=== PATIENT | female | born 1930 | race Caucasian/White ===

== ENCOUNTER 2016-07-21 10:15 | Day surgery (SDC) | payer MEDICARE, BC ==
[~2016-07-21 10:15] MED LIST: ALPRAZolam 0.25 MG TAB PO PRN; ALPRAZolam 0.5 MG TAB PO PRN; ASPIRIN 325 MG TAB PO STA; ATORVASTATIN 80 MG TAB PO STA; NITROGLYCERIN SL TABS 0.4 MG TAB SUBLINGUAL PRN; SODIUM CHLORIDE 0.9% 1,000 ML in EMPTY BAG 1 BAG IV ONE
[2016-07-21 10:42] LABS: Glucose,Whole Blood 90 mg/dL (75-99)
[2016-07-21 11:08] LABS: Basophils # (A) 0.1 k/uL (0-0.2); Basophils % (A) 1 %; CH 31.5; Eosinophils # (A) 0.1 k/uL (0-0.7); Eosinophils % (A) 2 %; HDW 3.17; HGB 12.7 gm/dL (11.4-16.0); Luc # (Auto) 0.17; Luc % (Auto) 3; Lymphocytes % (A) 32 %; MCH 32.3 pg (25.0-35.0); MCHC 33.5 g/dL (31.0-37.0); MCV 96.3 fL (80.0-100.0); Mean Platelet Volume 6.6; Monocytes # (A) 0.4 k/uL (0-1.0); Monocytes % (A) 7 %; Neutrophils # (A) 3.4 k/uL (1.3-7.7); Neutrophils % (A) 55 %; RBC 3.94 m/uL (3.80-5.40); RDW 13.9 % (11.5-15.5); WBC 6.2 k/uL (3.8-10.6); WBC (Perox) 5.48
[2016-07-21] MEDS ORDERED: fentaNYL (PF) 50 MCG/ML 2 ML AMP ONE (11:13)
[2016-07-21] MEDS ORDERED: MIDAZOLAM 2 MG/2 ML VIAL ONE (11:13)
[2016-07-21 11:19] LABS: Calcium 9.7 mg/dL (8.4-10.2); Potassium 4.4 mmol/L (3.5-5.1)
[2016-07-21] MEDS ORDERED: SODIUM CHLORIDE 0.9% 1,000 ML IV ONE (11:24)
[2016-07-21] MEDS ORDERED: fentaNYL (PF) 50 MCG/ML 2 ML AMP IV ONE (11:28)
[2016-07-21] MEDS ORDERED: BENZOCAINE SPRAY 100 APPLIC/CAN MUCOUS MEM ONE ×2 (11:32→11:36)
[2016-07-21] MEDS ORDERED: MIDAZOLAM 2 MG/2 ML VIAL IVP ONE (11:35)
[2016-07-21] MEDS ORDERED: LIDOCAINE 2% INJ 20 MG/ML (20 ML MDV) ONE (11:53)
[2016-07-21] MEDS ORDERED: LIDOCAINE 2% INJ 20 MG/ML SQ ONE (12:09)
--- NOTE | 2016-07-21 12:13 | ECHOT ---
DATE OF SERVICE: 07/21/2016 PERFORMING PHYSICIAN: Tati Sosa, Chemical Engineering Intern. PROCEDURE PERFORMED: Transesophageal echocardiogram. INDICATION: This is a pleasant 86-year-old female patient who was admitted recently to the hospital with congestive heart failure and was found to have severe aortic stenosis. She decided to pursue further work-up on the aortic valve. She was brought today to undergo a HEMAL. COMPLICATIONS: None. LEVEL OF SEDATION: Moderate with a sedation length of about 15 minutes. PROCEDURE DESCRIPTION: After obtaining an informed consent, explaining the procedure, benefits, risks, complications and alternatives, the patient was brought to the transesophageal echocardiogram suite. A pulse oximetry and heart rate monitors were attached to the patient prior to the procedure. The patient's throat was sprayed using lidocaine locally. Following that, the patient was turned into left lateral position. A bite guard was placed and the patient was then sedated with the above doses of Versed and fentanyl in divided doses. Following that, the transesophageal echocardiogram probe was advanced through the bite guard into the mid esophagus where 2-D echocardiogram images as well as color Doppler images of various cardiac structures were obtained. We evaluated the interatrial septum using 2-D echocardiogram, color Doppler, and contrast study. The procedure was completed. There were no complications. FINDINGS: The left ventricle is severe dilated with the left ventricular systolic function is severely impaired with an ejection fraction of 15% to 20% with global hypokinesia. The right ventricle is of normal size and function bit the left atrium is severely dilated. The left atrial appendage appeared to be free from any thrombus. The interatrial septum appeared to be intact. The aortic valve is heavily calcified and seems to be severe sclerotic and critically stenotic with aortic valve area by planimetry of 0.5 cm2. By gradient, I was able to get 78 mmHg. At the peak gradient across the aortic valve, on 14 mmHg mean gradient across the valve. The mitral valve is thickened as well with moderate MR. CONCLUSION: 1. Aortic sclerosis with evidence of severe aortic stenosis by gradient as well as by area. 2. Severe cardiomyopathy with an ejection fraction of 15% to 20%. 3. Thickened mitral valve leaflets with moderate mitral regurgitation. 4. Normal tricuspid valve and pulmonic valve. 5. Normal aortic root dimension. 6. Normal left atrial appendage without any thrombus. 7. Intact intra-atrial septum. 8. No evidence of pericardial effusion. FINDINGS: FINAL IMPRESSION:
[2016-07-21] MEDS ORDERED: BIVALIRUDIN BOLUS 250 MG/50 ML IV ONE (12:26)
[2016-07-21] MEDS ORDERED: BIVALIRUDIN 250 MG in SODIUM CHLORIDE 0.9% 50 ML IV ONE (12:27)
[2016-07-21] MEDS ORDERED: NITROGLYCERIN 1000MCG/10ML SYRINGE INTRACORON ONE (12:32)
[2016-07-21] MEDS ORDERED: CLOPIDOGREL 75 MG TAB ONE (12:37)
[2016-07-21] MEDS ORDERED: IODIXANOL 320 MG/ML 100 ML INTRAARTER ONE (12:43)
[2016-07-21] MEDS ORDERED: ZOLPIDEM 5 MG TAB PO PRN (12:44)
[2016-07-21] MEDS ORDERED: RX INFO: IV CONTRAST WAS GIVEN 1 EACH MISC MISCELLANE PRN (12:44)
[2016-07-21] MEDS ORDERED: MAG HYDROX/AL HYDROX/SIMETH 30 ML CUP PO PRN (12:44)
[2016-07-21] MEDS ORDERED: ATROPINE SULFATE 0.1 MG/ML 10ML SYRINGE IV PRN (12:44)
[2016-07-21] MEDS ORDERED: NITROGLYCERIN SL TABS 0.4 MG TAB SUBLINGUAL PRN (12:44)
[2016-07-21] MEDS ORDERED: SODIUM CHLORIDE 0.9% 1,000 ML IV SCH (12:45)
[2016-07-21] MEDS ORDERED: CLOPIDOGREL 75 MG TAB PO ONE (12:45)
--- NOTE | 2016-07-21 13:00 | LTR ---
July 21, 2016 RE: Estrella Silva Dear Flakito; Ms. Estrella Silva underwent successful stenting of the left circumflex coronary artery with a good angiographic result and without any complication. Thank you for allowing me to participate in her care and please do not hesitate to call if you have any questions or concerns. Sincerely, EVITA BARAHONA MD
[2016-07-21 13:14] LABS: Glucose,Whole Blood 71 mg/dL (75-99)
--- NOTE | 2016-07-21 14:15 | CC ---
DATE OF SERVICE: 07/21/2016 PERFORMING PHYSICIAN: Franklin Chaidez MD, supervisor lens generating. PROCEDURE PERFORMED: 1. Selective right and left coronary angiogram. 2. Successful stenting of the proximal left circumflex using 3.0 x 15 mm Xience CICI, which was postdilated using 3.25 mm with good angiographic results. INDICATION: This is a pleasant 86-year-old female patient who was diagnosed with severe cardiomyopathy as well as severe aortic stenosis. She underwent transesophageal echocardiogram which showed severe aortic stenosis. She was brought today to undergo a heart catheterization and possible PCI before the patient going to have TAVR procedure. APPROACH: Right common femoral artery. COMPLICATIONS: None. LEVEL OF SEDATION: Moderate with a sedation length of 33 minutes. PROCEDURE DESCRIPTION: After obtaining an informed consent, the patient was brought to the cardiac screedman/laborer. The right common femoral artery was cannulated using micropuncture technique. The micropuncture wire passed easily. Then I placed 6 [place] sheath in the right common femoral artery. Subsequently, I did selective right and left coronary angiogram using JR4 and JL4 catheters. After that, I did intervene on the left circumflex. Please see a separate paragraph for that. SELECTIVE CORONARY ANGIOGRAM: 1. The right coronary artery is a large-caliber vessel and it is a dominant vessel, which is angiographically normal. It bifurcates distally into PDA and PLV branches; both are angiographically normal. 2. Left main is angiographically normal. It bifurcates into the left circumflex and left anterior descending artery. 3. The left circumflex is a large-caliber vessel and nondominant vessel. The proximal circumflex has a lesion that seems to be in the range of 70% to 80%. This is involving the bifurcation of the first OM. The left circumflex continues after that as a small to medium caliber vessel in the AV groove. 4. The left anterior descending artery: The proximal LAD appeared to have mild disease only and gives rise into the first diagonal, which seems to be angiographically normal. The mid LAD is angiographically normal and gives rises into the second diagonal and the LAD distally is angiographically normal. PCI OF THE LEFT CIRCUMFLEX: Anticoagulation was initiated using Angiomax. Subsequently, I did engage the left main using JL4 guiding catheter. I wired the left circumflex using whisper wire. After that, I did direct stenting of the lesion using 3.0 x 15 mm Xience CICI, where the stent was positioned under fluoroscopy guidance and deployed under 10 atmospheres for 20 seconds, and subsequently I postdilated using 3.25 mm NC balloon, which was inflated under 14 atmospheres for 20 seconds with the following angiogram showed good angiographic result and the procedure was completed without any complication. CONCLUSION: 1. Severe single-vessel coronary artery disease involving the proximal left circumflex coronary artery. 2. Successful stenting of the proximal left circumflex using 3.0 x 15 mm Xience CICI with a good angiographic result. POSTPROCEDURE MANAGEMENT: The patient will be going to have a TAVR procedure.
[2016-07-21 16:34] VITALS: BMI 26.5
[2016-07-21] MEDS ORDERED: AMOXIC-POT CLAV 500-125 MG 1 EACH TAB PO SCH (21:00)
[2016-07-22] MEDS ORDERED: LEVOTHYROXINE 100 MCG TAB PO SCH (06:30)
[2016-07-22 08:23] VITALS: BP 139/65; PULSE 67; RESP 17; TEMP 97
[2016-07-22] MEDS ORDERED: LISINOPRIL 20 MG TAB PO SCH (09:00)
[2016-07-22] MEDS ORDERED: ASPIRIN 325 MG TAB PO SCH (09:00)
[2016-07-22] MEDS ORDERED: FAMOTIDINE 20 MG TAB PO SCH (09:00)
[2016-07-22] MEDS ORDERED: CLOPIDOGREL 75 MG TAB PO SCH (09:00)
[2016-07-22] MEDS ORDERED: ATORVASTATIN 10 MG TAB PO SCH (09:00)
[2016-07-22] MEDS ORDERED: OXYBUTYNIN XL 5 MG TAB.ER.24 PO SCH (09:00)
[2016-07-22] MEDS ORDERED: HYDROCHLOROTHIAZIDE 25 MG TAB PO SCH (09:00)
--- NOTE | 2016-07-22 19:57 | DS ---
DATE OF ADMISSION: 07/21/2016 DATE OF DISCHARGE: 07/22/2016 BRIEF HISTORY: This is a pleasant 86-year-old female patient who was admitted to the hospital yesterday and underwent a heart catheterization and successful stenting of the left circumflex with a good angiographic result and without any complication. The procedure was performed from the right groin, which is soft and nontender and without any bruises. The patient is going to be discharged home and I will follow up with her in the office next week.
== END 2016-07-22 11:18 | disposition home or self-care (01) ==
LOC: CATHCVL 10:15 → 6SEL 12:38 → CATHCVL 07-22 11:18
PROVIDERS: ATTEND Internal Medicine Interventional Cardiology
DX: I08.0 Rheumatic disorders of both mitral and aortic valves (principal); I25.10 Atherosclerotic heart disease of native coronary artery without angina pectoris; I42.9 Cardiomyopathy, unspecified; I50.9 Heart failure, unspecified; I11.0 Hypertensive heart disease with heart failure; E78.5 Hyperlipidemia, unspecified; Z79.02 Long term (current) use of antithrombotics/antiplatelets; Z79.1 Long term (current) use of non-steroidal anti-inflammatories (NSAID); Z79.899 Other long term (current) drug therapy
CPT/HCPCS: 93312; 93320; 93325; 93454; 80048; 82565; 85025; 99152; 99153 ×2; C9600; C1769 ×3; C1887; C1725; C1894; C1874; J2001; J2250; Q9967; J3010; J0583

== ENCOUNTER 2017-12-13 03:41 | Inpatient (IN) | payer MEDICARE, BC ==
[2017-12-13] MEDS ORDERED: MORPHINE SULFATE 4 MG/ML SYRINGE IV STA ×2 (04:11→06:36)
--- NOTE | 2017-12-13 04:14 | ED ---
Fall HPI - General Chief Complaint: Fall Stated Complaint: Fall Time Seen by Provider: 12/13/17 04:04 Source: EMS Mode of arrival: EMS - History of Present Illness Initial Comments: This patient is 87-year-old woman who comes to be evaluated for hip pain. Patient reportedly had gotten up to use the bathroom and then fallen from standing position. Patient is experiencing sharp pain. She is not able to get up following that. Ambulance was called and they did establish IV and gave fentanyl 50 g dose, twice. Patient does still complain of some pain and requests analgesia. Patient denies weakness or numbness of the leg. She does state however that there is pain anytime she tries to move. MD Complaint: fall -: minutes(s) Fall From: standing When Fall Occurred: just prior to arrival Fall Witnessed: no Place Fall Occurred: home Loss of Consciousness: none Prolonged Down Time?: no Severity: moderate Quality: sharp Context: tripped/slipped Associated Symptoms: denies - Related Data Home Medications Medication Instructions Recorded Confirmed Amoxic-Pot Clav 500-125 mg 1 each PO HS 12/08/14 07/18/16 [Augmentin 500-125 mg] Atenolol 25 mg PO DAILY 12/08/14 07/18/16 Famotidine [Pepcid] 20 mg PO DAILY 12/08/14 07/18/16 Levothyroxine Sodium [Synthroid] 100 mcg PO DAILY 12/08/14 07/18/16 Lovastatin [Mevacor] 40 mg PO DAILY 12/08/14 07/18/16 Oxybutynin Xl [Ditropan XL] 5 mg PO DAILY 12/08/14 07/18/16 Clopidogrel Bisulfate [Plavix] 75 mg PO DAILY 07/18/16 07/18/16 Aspirin 325 mg PO ONCE 07/21/16 07/21/16 Allergies Allergy/AdvReac Type Severity Reaction Status Date / Time No Known Allergies Allergy Verified 07/18/16 13:55 Review of Systems ROS Statement: Those systems with pertinent positive or pertinent negative responses have been documented in the HPI. ROS Other: All systems not noted in ROS Statement are negative. Constitutional: Denies: weakness Respiratory: Denies: cough, dyspnea Cardiovascular: Denies: chest pain, syncope Gastrointestinal: Denies: abdominal pain, vomiting, diarrhea Musculoskeletal: Denies: back pain Skin: Denies: lesions Neurological: Denies: headache, weakness, numbness, paresthesias Hematological/Lymphatic: Denies: easy bleeding Past Medical History Past Medical History: Cancer, Diabetes Mellitus, Hyperlipidemia, Hypertension, Osteoarthritis (OA), Thyroid Disorder Additional Past Medical History / Comment(s): Breast CA; chronic UTI's, hx migraines, problem with heart valve, uses cane when walking ouside for balance , no current rx for diabetes- watches diet, History of Any Multi-Drug Resistant Organisms: None Reported Past Surgical History: Breast Surgery, Cholecystectomy, Hysterectomy, Joint Replacement, Tonsillectomy Additional Past Surgical History / Comment(s): left mastectomy, left knee replacement Past Anesthesia/Blood Transfusion Reactions: No Reported Reaction Past Psychological History: No Psychological Hx Reported Smoking Status: Never smoker Past Alcohol Use History: None Reported Past Drug Use History: None Reported - Past Family History Mother Family Medical History: No Reported History General Exam Limitations: no limitations General appearance: alert, in no apparent distress Head exam: Present: atraumatic, normocephalic Eye exam: Present: normal appearance Neck exam: Present: normal inspection, full ROM. Absent: tenderness Respiratory exam: Present: normal lung sounds bilaterally. Absent: respiratory distress, wheezes, rales, rhonchi, stridor, chest wall tenderness Cardiovascular Exam: Present: regular rate, normal rhythm, normal heart sounds. Absent: systolic murmur, diastolic murmur, rubs, gallop GI/Abdominal exam: Present: soft. Absent: distended, tenderness, guarding, rebound, mass Extremities exam: Present: normal capillary refill, other (Left leg as external rotation and shortening.). Absent: full ROM, pedal edema Neurological exam: Present: alert. Absent: motor sensory deficit Skin exam: Present: warm, dry, intact, normal color. Absent: rash Course Vital Signs 12/13/17 12/13/17 03:43 04:44 Temperature 97.5 F L Pulse Rate 72 61 Respiratory 20 20 Rate Blood Pressure 199/85 162/71 O2 Sat by Pulse 85 L 96 Oximetry Medical Decision Making - Medical Decision Making Case discussed with TEMO Avery, and patient will be admitted to orthopedic surgery with consult to medicine for clearance. Patient will have Plavix held. Disposition Clinical Impression: Fall, Hip fracture, left Disposition: ADMITTED IP TO THIS HOSP Condition: Poor Referrals: Humberto Zhao MD [Primary Care Provider] - 1-2 days
--- NOTE | 2017-12-13 05:21 | XR ---
EXAMINATION TYPE: XR Hip LT and AP Pelvis DATE OF EXAM: 12/13/2017 COMPARISON: NONE HISTORY: Pain TECHNIQUE: A single AP view of the pelvis is obtained. Two views of the left hip are obtained. FINDINGS: There is a comminuted intratrochanteric fracture of the left femur with fragments displaced up to 3 cm. There is no dislocation. Pelvic ring is intact. Sacroiliac joints are intact. IMPRESSION: Acute comminuted displaced intertrochanteric fracture left femur.
--- NOTE | 2017-12-13 05:22 | XR ---
EXAMINATION TYPE: XR chest 1V DATE OF EXAM: 12/13/2017 COMPARISON: NONE HISTORY: Hip fracture TECHNIQUE: Single frontal view of the chest is obtained. FINDINGS: There is no heart failure nor confluent pneumonic infiltrate. There is slight coarsening o f the lung markings. There is no pleural effusion. Bony thorax is intact. IMPRESSION: Mild pulmonary fibrosis. No active cardiopulmonary disease.
[2017-12-13] MEDS ORDERED: SODIUM CHLORIDE 0.9% 1,000 ML IV ONE (05:46)
[2017-12-13 08:19] LABS: Appearance,Urine Clear (Clear); Bacteria,Urine Occasional /hpf; Bilirubin,Urine Negative (Negative); Blood,Urine Trace (Negative); Color,Urine Light Yellow; Glucose,Urine (UA) Negative (Negative); Ketones,Urine Negative (Negative); Leukocyte Esterase,Urine Small (Negative); Mucus,Urine Rare /hpf; Nitrite,Urine Negative (Negative); PH, Urine 6.5 (5.0-8.0); Protein,Urine 1+ (Negative); RBC,Urine 1 /hpf (0-5); Specific Gravity,Urine 1.011 (1.001-1.035); Urobilinogen,Urine <2.0 mg/dL (<2.0); WBC,Urine 13 /hpf (0-5)
[2017-12-13 08:31] LABS: Basophils % (A) 0 %; Eosinophils # (A) 0.3 k/uL (0-0.7); Eosinophils % (A) 2 %; HCT 28.3 % (34.0-46.0); HGB 9.2 gm/dL (11.4-16.0); Lymphocytes # (A) 1.7 k/uL (1.0-4.8); Lymphocytes % (A) 16 %; MCH 29.8 pg (25.0-35.0); MCHC 32.5 g/dL (31.0-37.0); MCV 91.6 fL (80.0-100.0); Mean Platelet Volume 8.4; Monocytes # (A) 1.3 k/uL (0-1.0); Monocytes % (A) 12 %; Neutrophils # (A) 7.3 k/uL (1.3-7.7); Neutrophils % (A) 68 %; Platelet Count 337 k/uL (150-450); RBC 3.08 m/uL (3.80-5.40); RDW 13.3 % (11.5-15.5); WBC 10.8 k/uL (3.8-10.6)
[2017-12-13 08:35] LABS: Calcium 8.7 mg/dL (8.4-10.2); Potassium 4.4 mmol/L (3.5-5.1)
[2017-12-13] MEDS ORDERED: LEVOTHYROXINE 100 MCG TAB PO SCH (09:00)
[2017-12-13] MEDS: ATORVASTATIN 10 MG TAB PO SCH (09:21)
[2017-12-13] MEDS: OXYBUTYNIN XL 5 MG TAB.ER.24 PO SCH (09:21)
[2017-12-13] MEDS: ATENOLOL 25 MG TAB PO SCH (09:21)
[2017-12-13] MEDS: FAMOTIDINE 20 MG TAB PO SCH (09:21)
[2017-12-13 10:54] LABS: Prothrombin Time 9.8 sec (9.0-12.0)
[2017-12-13 11:44] LABS: Glucose,Whole Blood 138 mg/dL (75-99)
--- NOTE | 2017-12-13 11:56 | P.CONS ---
History of Present Illness - Reason for Consult Consult date: 12/13/17 medical clearance - Chief Complaint hip pain - History of Present Illness 87 years female patient of Dr. Zhao with past medical history of coronary artery disease status post stenting of the left circumflex in July [address] Jennings with last reported ejection fraction between 15-20% with severe cardiomyopathy and severe aortic stenosis status post TAVR last year in [place] , Other pertinent history includes left breast cancer status post mastectomy, history of migraines, patient has multiple arthritis of the joints and has been acripple since the age 24 years old, diet-controlled diabetes, hypothyroidism , hyperlipidemia, hypertension, hypothyroidism comes in after a fall while using the restroom in the middle of the night. Patient does not remember the incidents as well but denies any dizziness or lightheadedness. She does state that she has stumbled and fell. Patient denies any dizziness, chest pain, shortness of breath, palpitation. She lives alone and uses a walker for ambulation around the house. She has a son lives around 5 miles away from her and helps her with daily activities as needed. Patient is able to walk with the help of walker but due to chronic debility of her left knee and difficulty extending it to full extent, she is unable to walk for long distances and avoids going outside And has to walk slowly to avoid any falls. Patient was brought to the ER and was found to have acute communited intertrochanteric fracture left femur. Patient is currently on Plavix for coronary artery disease and has increased bleeding risk due to that. Patient is unable to provide when was the last dose of Plavix and is not sure if she is currently on Plavix medications are managed by assisted living facility. Patient need echocardiogram and cardiology evaluation prior to surgery Review of Systems Constitutional: Denies chills, Denies fever, Denies lethargy, Denies malaise, Denies poor appetite, Denies weakness, Denies weight loss Eyes: denies decreased vision, denies diplopia, denies discharge, denies pain Ears: deny: decreased hearing Ears, nose, mouth and throat: Denies dental pain, Denies headache, Denies nasal discharge, Denies nose pain Cardiovascular: Denies chest pain, Denies decreased exercise tolerance, Denies edema, Denies high blood pressure, Denies irregular heart beat, Denies palpitations, Denies paroxysmal nocturnal dyspnea, Denies rapid heart beat, Denies shortness of breath Respiratory: Denies congestion, Denies cough, Denies cough with sputum, Denies dyspnea, Denies home oxygen, Denies wheezing Gastrointestinal: Denies abdominal pain, Denies change in bowel habits, Denies coffee ground emesis, Denies early satiety, Denies excessive gas, Denies heartburn, Denies hematemesis, Denies hematochezia, Denies loss of appetite, Denies nausea, Denies vomiting Genitourinary: Denies dysuria, Denies flank pain, Denies kidney stones, Denies menorrhagia, Denies urgency, Denies urinary frequency Musculoskeletal: Endorses gait dysfunction with limitation of motion and significant pain on movement Integumentary: Denies rash, Denies wounds, Denies brittle nails, Denies change in hair/nails, Denies darkening of skin Neurological: Endorses balance difficulties, Denies change in speech, Denies double vision, Denies gait dysfunction, Denies loss of vision, Denies motor disturbance, Denies numbness, Denies paralysis, Denies paresthesias, Denies seizures Psychiatric: Denies anxiety, Denies depression Endocrine: Denies excessive sweating, Denies excessive thirst, Denies high blood sugars, Denies palpitations Hematologic/Lymphatic: Denies easy bruising, Denies lymphadenopathy Past Medical History Past Medical History: Coronary Artery Disease (CAD), Cancer, Diabetes Mellitus, GERD/Reflux, Hyperlipidemia, Hypertension, Osteoarthritis (OA), Syncope, Thyroid Disorder Additional Past Medical History / Comment(s): Severe aortic valve disease, severe cardiomyopathy, L Breast CA with mastectomy, chronic UTI's, hx migraines , arthritis multiple joints, pt states she was a "cripple" and when she was 4 yrs old she spent a year in [place] but cannot recall details, diet controlled diabetes, hypothyroid History of Any Multi-Drug Resistant Organisms: None Reported Past Surgical History: Breast Surgery, Cholecystectomy, Hysterectomy, Joint Replacement, Tonsillectomy Additional Past Surgical History / Comment(s): 07/21/17 PCI with stent to left cx , HEMAL, left mastectomy, left knee replacement, colonoscopy. Past Anesthesia/Blood Transfusion Reactions: No Reported Reaction Smoking Status: Never smoker - Past Family History Father History Unknown: Yes Mother Family Medical History: Myocardial Infarction ([place]) Additional Family Medical History / Comment(s): Mother of a [place] in her 70s. Medications and Allergies Home Medications Medication Instructions Recorded Confirmed Type Atenolol 25 mg PO BID 12/08/14 12/13/17 History Famotidine [Pepcid] 20 mg PO DAILY 12/08/14 12/13/17 History Clopidogrel Bisulfate [Plavix] 75 mg PO DAILY 07/18/16 12/13/17 History ALPRAZolam [Xanax] 0.25 mg PO DAILY PRN 12/13/17 12/13/17 History Acetaminophen-Codeine 300-30mg 1 tab PO HS PRN 12/13/17 12/13/17 History [Tylenol w/codeine #3] Furosemide [Lasix] 40 mg PO DAILY 12/13/17 12/13/17 History Levothyroxine Sodium [Levoxyl] 37.5 mg PO DAILY 12/13/17 12/13/17 History Sodium Bicarbonate Tab 650 mg PO BID 12/13/17 12/13/17 History hydrALAZINE HCL 25 mg PO Q8H 12/13/17 12/13/17 History Allergies Allergy/AdvReac Type Severity Reaction Status Date / Time No Known Allergies Allergy Verified 12/13/17 09:25 Physical Exam Vitals: Vital Signs Temp Pulse Pulse Resp BP BP Pulse Ox 12/13/17 09:00 97.8 F 63 16 191/76 97 12/13/17 08:18 97.6 F 80 16 176/76 98 12/13/17 06:44 66 20 188/77 96 12/13/17 04:44 61 20 162/71 96 12/13/17 03:43 97.5 F L 72 20 199/85 85 L Intake and Output 12/12/17 12/13/17 12/13/17 22:59 06:59 14:59 Output Total 400 Balance -400 Output: Urine 400 Other: Weight 77.111 kg - Constitutional General appearance: cooperative, in moderate acute distress, thin-appearing cachectic - EENT Eyes: anicteric sclerae, PERRLA, normal appearance ENT: hearing grossly normal - Neck Neck: no lymphadenopathy, normal ROM, no other, no rigidity, no stridor, no thyromegaly - Respiratory Respiratory: bilateral: CTA, negative: diminished, dullness, rales, rhonchi - Cardiovascular Rhythm: regular Heart sounds: normal: S1, S2 Abnormal Heart Sounds: Positive for systolic murmur, no diastolic murmur, no rub , no S3 Gallop, no S4 Gallop, no click, no other - Gastrointestinal General gastrointestinal: normal bowel sounds, soft - Integumentary Integumentary: no rash - Neurologic Neurologic: CNII-XII intact - Musculoskeletal Musculoskeletal: Strength is decreased in the left lower extremity with persistent flexion of the knee at 45. Significant pain on movement of the joint - Psychiatric Psychiatric: A&O x's 3, appropriate affect Results CBC & Chem 7: 12/13/17 03:56 12/13/17 08:13 Labs: Abnormal Lab Results - Last 24 Hours (Table) 12/13/17 12/13/17 12/13/17 Range/Units 03:56 04:35 08:13 WBC 10.8 H (3.8-10.6) k/uL RBC 3.08 L (3.80-5.40) m/uL Hgb 9.2 L (11.4-16.0) gm/dL Hct 28.3 L (34.0-46.0) % Monocytes # 1.3 H (0-1.0) k/uL Carbon Dioxide 20 L (22-30) mmol/L BUN 78 H (7-17) mg/dL Creatinine 1.98 H (0.52-1.04) mg/dL Glucose 147 H (74-99) mg/dL POC Glucose (mg/dL) (75-99) mg/dL Urine Protein 1+ H (Negative) Urine Blood Trace H (Negative) Ur Leukocyte Esterase Small H (Negative) Urine WBC 13 H (0-5) /hpf Urine Bacteria Occasional H (None) /hpf Urine Mucus Rare H (None) /hpf 12/13/17 Range/Units 11:42 WBC (3.8-10.6) k/uL RBC (3.80-5.40) m/uL Hgb (11.4-16.0) gm/dL Hct (34.0-46.0) % Monocytes # (0-1.0) k/uL Carbon Dioxide (22-30) mmol/L BUN (7-17) mg/dL Creatinine (0.52-1.04) mg/dL Glucose (74-99) mg/dL POC Glucose (mg/dL) 138 H (75-99) mg/dL Urine Protein (Negative) Urine Blood (Negative) Ur Leukocyte Esterase (Negative) Urine WBC (0-5) /hpf Urine Bacteria (None) /hpf Urine Mucus (None) /hpf Assessment and Plan Plan: #1 mechanical fall leading to intertrochanteric fracture of the left femur. Continue incentive spirometer pain control with [place] and morphine. Patient received 2 doses of fentanyl with no relief. Patient has a MET of 1 with 6.6% risk of cardiac event during the surgery for any major myocardial infarction or cardiac . Echocardiogram ordered EKG ordered. Cardiology evaluation prior to surgery is needed as patient is on Plavix for coronary artery disease and has increased bleeding risk. #2 coronary artery disease status post stenting of the left circumflex July 2016. Hold aspirin hold Plavix. Continue atenolol 25 mg twice a day. Lasix 40 mg by mouth daily. #3 hypothyroidism continue levothyroxine 100 g by mouth daily #4 chronic debility from arthritis of multiple joints worse in the left knee patient needs PT OT post surgery with the a good candidate for subacute rehab. #5 urinary incontinence continue due to bad 5 mg by mouth daily. #6 GI prophylaxis with Pepcid 20 mg by mouth daily #7 DVT prophylaxis with SCDs Thank you for the consult. I'll be happy to assist in patient's medical needs while patient is in the hospital
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
--- NOTE | 2017-12-13 13:00 | ECHOF ---
Referral Reason:CHF MEASUREMENTS -------- HEIGHT: 160.0 cm WEIGHT: 77.1 kg BP: 191/76 RVIDd: 1.9 cm (< 3.3) IVSd: 1.2 cm (0.6 - 1.1) LVIDd: 4.5 cm (3.9 - 5.3) LVPWd: 1.3 cm (0.6 - 1.1) IVSs: 1.7 cm LVIDs: 3.3 cm LVPWs: 1.6 cm LA Diam: 3.6 cm (2.7 - 3.8) LAESV Index (A-L): 21.09 ml/m Ao Diam: 2.2 cm (2.0 - 3.7) AV Cusp: 1.4 cm (1.5 - 2.6) MV EXCURSION: 10.738 mm (> 18.000) MV EF SLOPE: 13 mm/s (70 - 150) EPSS: 0.8 cm MV E Tutu: 1.75 m/s MV DecT: 313 ms MV A Tutu: 1.87 m/s MV E/A Ratio: 0.94 AV maxP.51 mmHg AV meanP.51 mmHg AR PHT: 771 ms RAP: 5.00 mmHg RVSP: 42.24 mmHg FINDINGS -------- Sinus rhythm. This was a technically adequate study. The left ventricular size is normal. There is mild concentric left ventricular hypertrophy. Overa left ventricular systolic function is normal with, an EF between 55 - 60 %. The right ventricle is normal in size. Normal LA size by volume 22+/-6 ml/m2. The right atrium is normal in size. Peak/mean gradient across the Aortic Valve is 8.51mmHg / 4.51mmHg. There is mild regurgitation of t he bioprosthetic aortic valve. The mitral valve leaflets are moderately thickened. Severe mitral annular calcification present. Mild mitral regurgitation is present. The peak and mean MV gradients are 15.86mmHg 6.78mmHg as elan sured by doppler. Mild tricuspid regurgitation present. There is mild pulmonary hypertension. The right ventricular systolic pressure, as measured by Doppler, is 42.24mmHg. Trace/mild (physiologic) pulmonic regurgitation. The aortic root size is normal. Normal inferior vena cava with normal inspiratory collapse consistent with estimated right atrial pre ssure of 5 mmHg. There is no pericardial effusion. CONCLUSIONS -------- 1. Sinus rhythm. 2. This was a technically adequate study. 3. The left ventricular size is normal. 4. There is mild concentric left ventricular hypertrophy. 5. Overall left ventricular systolic function is normal with, an EF between 55 - 60 %. 6. The right ventricle is normal in size. 7. Normal LA size by volume 22+/-6 ml/m2. 8. The right atrium is normal in size. 9. Peak/mean gradient across the Aortic Valve is 8.51mmHg / 4.51mmHg. 10. There is mild regurgitation of the bioprosthetic aortic valve. 11. The mitral valve leaflets are moderately thickened. 12. Severe mitral annular calcification present. 13. Mild mitral regurgitation is present. 14. The peak and mean MV gradients are 15.86mmHg 6.78mmHg as measured by doppler. 15. Mild tricuspid regurgitation present. 16. There is mild pulmonary hypertension. 17. The right ventricular systolic pressure, as measured by Doppler, is 42.24mmHg. 18. Trace/mild (physiologic) pulmonic regurgitation. 19. The aortic root size is normal. 20. Normal inferior vena cava with normal inspiratory collapse consistent with estimated right atrial pressure of 5 mmHg. 21. There is no pericardial effusion. PLASTICS FABRICATOR: Yoko Cantor RDCS
[2017-12-13] MEDS: HYDROcodone/APAP 7.5-325MG 1 EACH TAB PO PRN ×2 (14:34→22:45)
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
[2017-12-13] MEDS: hydrALAZINE HCL 25 MG TAB PO SCH ×3 (15:39→22:45)
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
[2017-12-13 16:50] LABS: Glucose,Whole Blood 192 mg/dL (75-99)
[2017-12-13] MEDS: INSULIN ASPART 100 UNIT/ML 1 ML 10 ML VIAL SQ SCH ×2 (18:03→22:03)
[2017-12-13 20:23] LABS: Glucose,Whole Blood 127 mg/dL (75-99)
[2017-12-13] MEDS: SODIUM BICARBONATE TAB 650 MG TAB PO SCH (20:45)
[2017-12-13] MEDS ORDERED: AMOXIC-POT CLAV 500-125 MG 1 EACH TAB PO SCH (21:00)
[2017-12-14 03:45] LABS: Iron Saturation 6.74 (12.00-45.00)
[2017-12-14 03:54] LABS: Hemoglobin A1C 5.1 % (4.0-6.0)
[2017-12-14] MEDS: LEVOTHYROXINE 75 MCG TAB PO SCH (05:18)
[2017-12-14] MEDS: HYDROcodone/APAP 7.5-325MG 1 EACH TAB PO PRN ×3 (05:18→22:35)
[2017-12-14] MEDS: MORPHINE SULFATE 4 MG/ML SYRINGE IV PRN (05:28)
[2017-12-14 07:31] LABS: Glucose,Whole Blood 122 mg/dL (75-99)
[2017-12-14] MEDS: INSULIN ASPART 100 UNIT/ML 1 ML 10 ML VIAL SQ SCH ×4 (07:45→20:42)
[2017-12-14 08:07] LABS: Basophils % (A) 0 %; Eosinophils # (A) 0.1 k/uL (0-0.7); Eosinophils % (A) 2 %; HCT 21.7 % (34.0-46.0); Lymphocytes # (A) 1.3 k/uL (1.0-4.8); Lymphocytes % (A) 17 %; MCH 31.2 pg (25.0-35.0); MCHC 33.5 g/dL (31.0-37.0); MCV 93.2 fL (80.0-100.0); Monocytes % (A) 13 %; Neutrophils # (A) 4.9 k/uL (1.3-7.7); Neutrophils % (A) 66 %; Platelet Count 292 k/uL (150-450); RBC 2.33 m/uL (3.80-5.40); RDW 13.3 % (11.5-15.5); WBC 7.4 k/uL (3.8-10.6)
[2017-12-14 08:08] LABS: HGB 7.3 gm/dL (11.4-16.0)
[2017-12-14] MEDS: hydrALAZINE HCL 25 MG TAB PO SCH ×3 (08:11→22:35)
[2017-12-14] MEDS: ATORVASTATIN 10 MG TAB PO SCH (08:11)
[2017-12-14] MEDS: SODIUM BICARBONATE TAB 650 MG TAB PO SCH ×2 (08:11→20:42)
[2017-12-14] MEDS: FUROSEMIDE 40 MG TAB PO SCH (08:11)
[2017-12-14] MEDS: OXYBUTYNIN XL 5 MG TAB.ER.24 PO SCH (08:11)
[2017-12-14] MEDS: ATENOLOL 25 MG TAB PO SCH (08:11)
[2017-12-14] MEDS: FAMOTIDINE 20 MG TAB PO SCH (08:11)
[2017-12-14 08:20] LABS: Albumin 2.9 g/dL (3.5-5.0); Calcium 8.4 mg/dL (8.4-10.2); Potassium 4.7 mmol/L (3.5-5.1); Total Bilirubin 0.5 mg/dL (0.2-1.3); Total Protein 6.4 g/dL (6.3-8.2)
[2017-12-14 12:20] LABS: Glucose,Whole Blood 125 mg/dL (75-99)
--- NOTE | 2017-12-14 12:45 | P.PN ---
Subjective Progress Note Date: 12/14/17 Principal diagnosis: Left intertrochanteric/peritrochanteric femur fracture Patient evaluated today bedside, she is resting comfortably. She admits to discomfort in the left hip with movement. She denies any current chest pain or shortness of breath. Objective - Vital Signs Vital signs: Vital Signs Temp 98.7 F 12/14/17 07:15 Pulse 68 12/14/17 07:15 Resp 18 12/14/17 07:15 BP 157/73 12/14/17 07:15 Pulse Ox 98 12/14/17 07:15 Intake & Output 12/13/17 12/14/17 12/14/17 18:59 06:59 18:59 Intake Total 236 425 Output Total 900 575 Balance -664 -150 Intake: Intake, IV Titration 175 Amount cefTRIAXone 1,000 mg In 175 Sodium Chloride 0.9% 50 ml @ 100 mls/hr IVPB Q24HR [facility] Rx#:[id number] Oral 236 250 Output: Urine 900 575 Other: Voiding Method Indwelling Catheter Indwelling Catheter - Exam Physical exam is unchanged since initial evaluation in orthopedics H&P - Labs CBC & Chem 7: 12/14/17 06:18 12/14/17 06:18 Labs: Abnormal Lab Results - Last 24 Hours (Table) 12/13/17 12/13/17 12/13/17 Range/Units 08:13 16:48 20:21 RBC (3.80-5.40) m/uL Hgb (11.4-16.0) gm/dL Hct (34.0-46.0) % Chloride (98-107) mmol/L Carbon Dioxide (22-30) mmol/L BUN (7-17) mg/dL Creatinine (0.52-1.04) mg/dL Glucose (74-99) mg/dL POC Glucose (mg/dL) 192 H 127 H (75-99) mg/dL Iron 19 L (50-170) ug/dL Iron Saturation 6.74 L (12.00-45.00) AST (14-36) U/L Alkaline Phosphatase (38-126) U/L Albumin (3.5-5.0) g/dL 12/14/17 12/14/17 12/14/17 Range/Units 06:18 06:18 07:29 RBC 2.33 L (3.80-5.40) m/uL Hgb 7.3 L D (11.4-16.0) gm/dL Hct 21.7 L (34.0-46.0) % Chloride 108 H (98-107) mmol/L Carbon Dioxide 19 L (22-30) mmol/L BUN 69 H (7-17) mg/dL Creatinine 1.95 H (0.52-1.04) mg/dL Glucose 101 H (74-99) mg/dL POC Glucose (mg/dL) 122 H (75-99) mg/dL Iron (50-170) ug/dL Iron Saturation (12.00-45.00) AST 43 H (14-36) U/L Alkaline Phosphatase 139 H (38-126) U/L Albumin 2.9 L (3.5-5.0) g/dL 12/14/17 Range/Units 12:17 RBC (3.80-5.40) m/uL Hgb (11.4-16.0) gm/dL Hct (34.0-46.0) % Chloride (98-107) mmol/L Carbon Dioxide (22-30) mmol/L BUN (7-17) mg/dL Creatinine (0.52-1.04) mg/dL Glucose (74-99) mg/dL POC Glucose (mg/dL) 125 H (75-99) mg/dL Iron (50-170) ug/dL Iron Saturation (12.00-45.00) AST (14-36) U/L Alkaline Phosphatase (38-126) U/L Albumin (3.5-5.0) g/dL Microbiology - Last 24 Hours (Table) 12/13/17 21:40 Urine Culture - Preliminary Urine,Catheterized Assessment and Plan Plan: Assessment: 1. Displaced and comminuted left intertrochanteric/peritrochanteric femur fracture 2. Status post fall from standing 3. Multiple medical comorbidities 4. Anemia Plan: Discussed with medical and cardiology current treatment plan for patient. I did order one unit of blood due to patient's hemoglobin 7.3. I discussed with the WOOD HEEL FINISHER from the cardiology group their recommendations for Plavix. We are aware days needed for Plavix to clear from the system, we are concerned waiting that long will worsen her overall medical state. Patient's hemoglobin will continue to worsen with the fracture of the left femur in it's current state. We would like to still proceed with surgery on 12/15/2017. Nothing by mouth after midnight Obtain consent Nonweightbearing left lower extremity Further recommendations to follow Time with Patient: Less than 30
--- NOTE | 2017-12-14 13:13 | P.PN ---
Subjective Progress Note Date: 12/14/17 This is a 87-year-old female, patient of Dr. Salgado. She has a known past medical history of coronary artery disease with stenting to the left circumflex in 2016 with an EF between 15-20% with severe cardiomyopathy, severe aortic stenosis status post TAVR October 2016, hypertension, chronic kidney disease, diet controlled diabetes mellitus, breast cancer status post mastectomy. She also has a history of hypothyroidism. Patient lives in assisted living home. Apparently she got up in the middle the night to walk to the bathroom and tripped and fell. She had significant pain and likely left hip and was brought into the emergency room for further evaluation and treatment. X-ray of the hip shows an acute comminuted displaced and trochanteric fracture of the left femur. She was admitted to orthopedic service. We have been consulted for medical management. Initially consult was placed for Dr. Conde who covers for Dr. Zhao. But there with clarification of patient's PCP which is Dr. Ledesma. Therefore consult was switched over today to us. During patient's fall she denies any loss of consciousness dizziness or lightheadedness. Denies any chest pain or shortness of breath. Denies any nausea or vomiting bowel movement changes or urinary symptoms. Apparently patient has been on Augmentin it is listed as one of her home medications for possibly a UTI. Urinalysis during this admission does show evidence of infection. Urine culture will be obtained. Patient is currently on Plavix and aspirin for her coronary artery disease and cardiac stents. I seen by cardiology these medications have been placed on hold. And they're anticipating surgery to be completed on Sunday. Patient currently lying in bed comfortably. No evidence of distress. 12/14/2017 patient is lying in bed comfortably. Pain is controlled. Hemoglobin has dropped to 7.3. She is receiving 1 unit of blood per orthopedic. She did have evidence of low iron of 19. Discuss with orthopedics. They're planning to proceed with surgery tomorrow. Also discussed with cardiology. Cardiology is recommending that patient be off of Plavix for 5 days due to increased risk of bleeding. Patient denies any chest pain or shortness of breath. Denies any nausea or vomiting. Denies any bowel movement changes or urinary symptoms. Objective - Vital Signs Vital signs: Vital Signs Temp 98.7 F 10/12/18 07:15 Pulse 68 12/14/17 07:15 Resp 18 12/14/17 07:15 BP 157/73 12/14/17 07:15 Pulse Ox 98 12/14/17 07:15 Intake & Output 12/13/17 12/14/17 12/14/17 18:59 06:59 18:59 Intake Total 236 425 Output Total 900 575 Balance -664 -150 Intake: Intake, IV Titration 175 Amount cefTRIAXone 1,000 mg In 175 Sodium Chloride 0.9% 50 ml @ 100 mls/hr IVPB Q24HR [facility] Rx#:[id number] Oral 236 250 Output: Urine 900 575 Other: Voiding Method Indwelling Catheter Indwelling Catheter - Exam Head normocephalic Neck supple Lungs clear to auscultation bilaterally no wheezing or crackles Heart regular rate and rhythm S1-S2, no rub or gallop Abdomen is soft nontender nondistended positive bowel sounds no hepatosplenomegaly Extremities no edema Neuro alert and orientated to 2. Her name and place - Labs CBC & Chem 7: 12/14/17 06:18 12/14/17 06:18 Labs: Abnormal Lab Results - Last 24 Hours (Table) 12/13/17 12/13/17 12/13/17 Range/Units 08:13 16:48 20:21 RBC (3.80-5.40) m/uL Hgb (11.4-16.0) gm/dL Hct (34.0-46.0) % Chloride (98-107) mmol/L Carbon Dioxide (22-30) mmol/L BUN (7-17) mg/dL Creatinine (0.52-1.04) mg/dL Glucose (74-99) mg/dL POC Glucose (mg/dL) 192 H 127 H (75-99) mg/dL Iron 19 L (50-170) ug/dL Iron Saturation 6.74 L (12.00-45.00) AST (14-36) U/L Alkaline Phosphatase (38-126) U/L Albumin (3.5-5.0) g/dL 12/14/17 12/14/17 12/14/17 Range/Units 06:18 06:18 07:29 RBC 2.33 L (3.80-5.40) m/uL Hgb 7.3 L D (11.4-16.0) gm/dL Hct 21.7 L (34.0-46.0) % Chloride 108 H (98-107) mmol/L Carbon Dioxide 19 L (22-30) mmol/L BUN 69 H (7-17) mg/dL Creatinine 1.95 H (0.52-1.04) mg/dL Glucose 101 H (74-99) mg/dL POC Glucose (mg/dL) 122 H (75-99) mg/dL Iron (50-170) ug/dL Iron Saturation (12.00-45.00) AST 43 H (14-36) U/L Alkaline Phosphatase 139 H (38-126) U/L Albumin 2.9 L (3.5-5.0) g/dL 12/14/17 Range/Units 12:17 RBC (3.80-5.40) m/uL Hgb (11.4-16.0) gm/dL Hct (34.0-46.0) % Chloride (98-107) mmol/L Carbon Dioxide (22-30) mmol/L BUN (7-17) mg/dL Creatinine (0.52-1.04) mg/dL Glucose (74-99) mg/dL POC Glucose (mg/dL) 125 H (75-99) mg/dL Iron (50-170) ug/dL Iron Saturation (12.00-45.00) AST (14-36) U/L Alkaline Phosphatase (38-126) U/L Albumin (3.5-5.0) g/dL Microbiology - Last 24 Hours (Table) 12/13/17 21:40 Urine Culture - Preliminary Urine,Catheterized Assessment and Plan Assessment: 1. Mechanical fall with intertrochanteric fracture of the left femur. Patient is scheduled for surgery on Sunday. Plavix is currently on hold. Cardiology recommending to hold Plavix for 5 days before surgical intervention due to the increased risk of bleeding. Orthopedics are planning to proceed with surgical intervention they're concerned about waiting that long will worsen patient's overall medical state. 2. Coronary artery disease status post stenting in July 2016. Aspirin and Plavix on hold. 3. Hypothyroidism continue Synthroid 75 g daily 4. 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 TAVR completed October 2016 6. Essential hypertension : Continue hydralazine and atenolol 7. History of ischemic cardiomyopathy with improvement of repeat echo showing an EF of 55-60% after the TAVR 8. Chronic systolic heart failure with improvement on repeat echo. Cardiology following. No evidence of exacerbation. Continue her oral Lasix 9. Acute on Chronic kidney disease stage IV. Continue with IV fluid hydration. Monitor closely while on Lasix 10. UTI: Send urine for culture. Continue Rocephin 11. Diet controlled diabetes mellitus per patient. A1c 5.1. Continue sliding scale during hospitalization 12. Anemia with evidence of iron deficiency anemia. Possible acute blood loss anemia at fracture site. Hemoglobin has dropped to 7.3. Discussed with orthopedics and they want to proceed with 1 unit of blood to prepare patient for surgical intervention.. Hematology has also been consulted. Patient did have a low hemoglobin in November 2017 of 9.8. Stool for occult blood collected GI prophylaxis Pepcid and DVT prophylaxis SCDs I performed an examination of the patient and discussed their management with the physician Career Development Specialist. I have reviewed the Physician Career Development Specialist's notes and agree with the documented findings and plan of care
--- NOTE | 2017-12-14 14:21 | P.PN ---
Progress Note - Text Discussion with Sánchez from orthopedics regarding cardiac recommendations. She is stable for surgery tomorrow as planned with the understanding that she is at an increased risk of bleeding since the plavix has not been held for 5 days. We will follow her in the post operative phase.
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
[2017-12-14 16:51] LABS: Glucose,Whole Blood 129 mg/dL (75-99)
[2017-12-14] MEDS: SODIUM FERRIC GLUCONAT-SUCROSE 125 MG in SODIUM CHLORIDE 0.9% 100 ML IVPB SCH (17:12)
[2017-12-14 20:22] LABS: Glucose,Whole Blood 183 mg/dL (75-99)
[2017-12-15] MEDS: MORPHINE SULFATE 4 MG/ML SYRINGE IV PRN ×2 (03:48→08:11)
[2017-12-15] MEDS: LEVOTHYROXINE 75 MCG TAB PO SCH (05:42)
[2017-12-15 06:55] LABS: Glucose,Whole Blood 104 mg/dL (75-99)
[2017-12-15] MEDS: INSULIN ASPART 100 UNIT/ML 1 ML 10 ML VIAL SQ SCH ×4 (07:09→20:50)
[2017-12-15 07:17] LABS: Basophils % (A) 0 %; Eosinophils % (A) 0 %; HCT 24.5 % (34.0-46.0); HGB 7.9 gm/dL (11.4-16.0); Lymphocytes % (A) 11 %; MCH 29.5 pg (25.0-35.0); MCHC 32.2 g/dL (31.0-37.0); MCV 91.5 fL (80.0-100.0); Mean Platelet Volume 6.8; Monocytes # (A) 1.1 k/uL (0-1.0); Monocytes % (A) 12 %; Neutrophils # (A) 6.9 k/uL (1.3-7.7); Neutrophils % (A) 75 %; Platelet Count 273 k/uL (150-450); RBC 2.67 m/uL (3.80-5.40); RDW 14.2 % (11.5-15.5); WBC 9.3 k/uL (3.8-10.6)
[2017-12-15 07:26] LABS: Albumin 2.7 g/dL (3.5-5.0); Calcium 8.4 mg/dL (8.4-10.2); Potassium 4.4 mmol/L (3.5-5.1); Total Bilirubin 0.6 mg/dL (0.2-1.3); Total Protein 6.1 g/dL (6.3-8.2)
[2017-12-15] MEDS: hydrALAZINE HCL 25 MG TAB PO SCH (08:11)
[2017-12-15] MEDS: ATENOLOL 25 MG TAB PO SCH (08:11)
[2017-12-15] MEDS: FAMOTIDINE 20 MG TAB PO SCH (08:18)
[2017-12-15] MEDS: SODIUM BICARBONATE TAB 650 MG TAB PO SCH ×2 (08:18→20:50)
[2017-12-15] MEDS: OXYBUTYNIN XL 5 MG TAB.ER.24 PO SCH (08:18)
[2017-12-15 08:45] LABS: Glucose,Whole Blood 102 mg/dL (75-99)
[2017-12-15] MEDS: FUROSEMIDE 40 MG TAB PO SCH (08:54)
[2017-12-15] MEDS: SODIUM FERRIC GLUCONAT-SUCROSE 125 MG in SODIUM CHLORIDE 0.9% 100 ML IVPB SCH (09:00)
[2017-12-15] MEDS ORDERED: GLYCOPYRROLATE 0.2 MG/ML 2 ML VIAL ONE (09:48)
[2017-12-15] MEDS ORDERED: ROCURONIUM BROMIDE 10 MG/ML 10 ML VIAL IV ONE (09:48)
[2017-12-15] MEDS ORDERED: LIDOCAINE 1% INJ 10MG/ML (20 ML MDV) ONE (09:48)
[2017-12-15] MEDS ORDERED: ceFAZolin 1,000 MG VIAL IVPB ONE (09:48)
[2017-12-15] MEDS ORDERED: fentaNYL (PF) 50 MCG/ML 2 ML AMP ONE (09:48)
[2017-12-15] MEDS ORDERED: PROPOFOL 10 MG/ML 20 ML VIAL IV ONE (09:48)
[2017-12-15] MEDS ORDERED: SODIUM CHLORIDE 0.9% 1,000 ML IV ONE (09:48)
[2017-12-15] MEDS ORDERED: PHENYLEPHRINE-0.9% NACL SYG 1 MG/10 ML SYRINGE ONE (09:48)
[2017-12-15] MEDS ORDERED: KETAMINE 10 MG/ML 20 ML VIAL ONE (09:48)
[2017-12-15] MEDS ORDERED: ceFAZolin 1,000 MG in SODIUM CHLORIDE 0.9% 1,000 ML IRRIGATION ONE (11:25)
[2017-12-15] MEDS ORDERED: SODIUM CHLORIDE 0.9% 500 ML 500 ML IV ONE (11:33)
--- NOTE | 2017-12-15 11:56 | XR ---
FLUOROSCOPY 4 minutes and 20 seconds of fluoroscopy time were utilized during IM nailing of the left hip. 4 image s document the procedure.
[2017-12-15] MEDS: MORPHINE SULFATE 4 MG/ML SYRINGE IVP ONE ×3 (11:57→12:10)
--- NOTE | 2017-12-15 11:57 | P.OP ---
Date of Procedure: 12/15/17 Preoperative Diagnosis: Displaced left subtrochanteric/peritrochanteric femur fracture Postoperative Diagnosis: Same Procedure(s) Performed: Trochanteric intramedullary nailing left subtrochanteric/peritrochanteric femur fracture Implants: [employer] size 10 mm x 36 centimeter trochanteric femoral nail, 90 mm lag screw, 85 mm compression screw Anesthesia: ANGE Surgeon: Rosas Allen Precipitation Equipment Tender #1: Brandon Emanuel Estimated Blood Loss (ml): 100 Pathology: none sent Condition: stable Disposition: PACU Indications for Procedure: The patient's an 87-year-old female who presents after falling injuring her left hip. Upon evaluation she was noted a displaced left subtrochanteric/ peritrochanteric femur fracture. A discussion of the risks and benefits of operative intervention was made with patient and her family. They opted to proceed. Specific risks of the surgery to include infection, neurovascular injury, development of blood clots, possible development of nonunion/malunion, and possible need for silicone procedures was discussed. Informed consent was obtained. Operative Findings: As below Description of Procedure: The patient was brought to the operating room, and after induction of general anesthesia was placed supine on the fracture table. Bony prominences were appropriately padded. The fracture was reduced with longitudinal traction and internal rotation of the left leg. This is verified on the AP and lateral views of fluoroscopy. The left lower extremity was prepped and draped in normal fashion. An 8 cm incision was then made proximal to the greater trochanter. The skin and subcu tissues were divided sharply. Electrocautery was used for hemostasis. The gluteus mike fascia was split in line with the skin incision. Blunt dissection was made down to the level of the greater trochanter. A starting awl was used to make a starting hole in the medial aspect of the greater trochanter. This was verified with fluoroscopy. A guidewire was then inserted down the femoral canal. The proximal reamer was used to a depth of the level of the lesser trochanter. The canal was reamed up to 12 mm. A 10 mm x 36 cm trochanteric nail was gently inserted over the guidewire. The guidewire was removed. This was inserted to the appropriate depth for placement of the lag and compression screws. A guidepin was placed and centercenter portion of the femoral head and neck on the AP and lateral views. The compression screw drill hole was made to a depth of 85 mm. The lag screw drill hole was made to a depth of 90 mm. Lag screw was inserted over the guidewire. A compression screw was inserted and final fluoroscopic view showed adequate compression of the fracture and placement of the implant on the AP and lateral views. Attention was then paid towards the distal locking. The distal static screw hole was filled with a cortical screw of the appropriate length. This is verified on the AP and lateral views of fluoroscopy. The wounds were irrigated normal saline. The fascia was closed with running #1 Vicryl suture. Subcutaneous tissues reapproximated interrupted 2-0 Vicryl sutures. The skin was reapproximated with heaven. A sterile dressing was applied. The patient was then awoken from general anesthesia and transferred to recovery room in fair condition. Blood loss was estimated at 100 mL. No complications were incurred. Sponge and needle counts were correct at the end of the case.
[2017-12-15 12:14] LABS: Glucose,Whole Blood 104 mg/dL (75-99)
[2017-12-15] MEDS: fentaNYL (PF) 50 MCG/ML 2 ML AMP IVP ONE ×4 (12:20→13:03)
--- NOTE | 2017-12-15 13:40 | P.PN ---
Subjective Progress Note Date: 12/15/17 Principal diagnosis: Preop assessment before hip surgery This is a pleasant 87-year-old female patient following the office as an outpatient with a past medical history significant for coronary artery disease and prior stenting of the left circumflex, status post transcutaneous aortic valve replacement, as well as hypertension, fell at home and fractured her left hip. She underwent left hip surgery earlier today and was uneventful. On follow-up with her today, she denies having any chest pain or chest discomfort. She still slightly lethargic because she was given fentanyl few minutes ago. Objective - Vital Signs Vital signs: Vital Signs Temp 98 F 12/15/17 11:45 Pulse 77 12/15/17 12:45 Resp 18 12/15/17 12:45 BP 186/81 12/15/17 13:00 Pulse Ox 93 L 12/15/17 13:00 Intake & Output 12/14/17 12/15/17 12/15/17 18:59 06:59 18:59 Intake Total 850 450 651 Output Total 650 450 550 Balance 200 0 101 Intake: IV 450 651 0.9 @ 75 450 Oral 540 Blood Product 310 Rc As-1 Unit 310 [id number] Output: Urine 650 450 450 Uretheral (Oropeza) 650 Estimated Blood Loss 100 Other: Voiding Method Indwelling Catheter Indwelling Catheter Indwelling Catheter - Constitutional General appearance: Present: no acute distress - Respiratory Respiratory: bilateral: CTA - Cardiovascular Rhythm: regular Heart sounds: normal: S1, S2 - Labs CBC & Chem 7: 12/15/17 06:21 12/15/17 06:21 Labs: Abnormal Lab Results - Last 24 Hours (Table) 12/14/17 12/14/17 12/14/17 Range/Units 10:47 16:50 20:18 RBC (3.80-5.40) m/uL Hgb (11.4-16.0) gm/dL Hct (34.0-46.0) % Monocytes # (0-1.0) k/uL Carbon Dioxide (22-30) mmol/L BUN (7-17) mg/dL Creatinine (0.52-1.04) mg/dL POC Glucose (mg/dL) 129 H 183 H (75-99) mg/dL Total Protein (6.3-8.2) g/dL Albumin (3.5-5.0) g/dL Crossmatch See Detail 12/15/17 12/15/17 12/15/17 Range/Units 06:21 06:21 06:52 RBC 2.67 L (3.80-5.40) m/uL Hgb 7.9 L (11.4-16.0) gm/dL Hct 24.5 L (34.0-46.0) % Monocytes # 1.1 H (0-1.0) k/uL Carbon Dioxide 20 L (22-30) mmol/L BUN 61 H (7-17) mg/dL Creatinine 1.98 H (0.52-1.04) mg/dL POC Glucose (mg/dL) 104 H (75-99) mg/dL Total Protein 6.1 L (6.3-8.2) g/dL Albumin 2.7 L (3.5-5.0) g/dL Crossmatch 12/15/17 12/15/17 Range/Units 08:44 12:12 RBC (3.80-5.40) m/uL Hgb (11.4-16.0) gm/dL Hct (34.0-46.0) % Monocytes # (0-1.0) k/uL Carbon Dioxide (22-30) mmol/L BUN (7-17) mg/dL Creatinine (0.52-1.04) mg/dL POC Glucose (mg/dL) 102 H 104 H (75-99) mg/dL Total Protein (6.3-8.2) g/dL Albumin (3.5-5.0) g/dL Crossmatch Microbiology - Last 24 Hours (Table) 12/13/17 21:40 Urine Culture - Preliminary Urine,Catheterized Group D Enterococcus Assessment and Plan Assessment: Assessment #1 status post fall with left hip fracture #2 coronary artery disease and prior stenting of the left circumflex #3 status post TAVR #4 hypertension Plan Continue the current medical regimen #2 increase the dose of hydralazine for better blood pressure control #3 follow-up with the patient
[2017-12-15] MEDS: hydrALAZINE HCL 50 MG TAB PO SCH ×2 (13:55→23:27)
[2017-12-15] MEDS ORDERED: hydrALAZINE HCL 50 MG TAB PO SCH (14:00)
--- NOTE | 2017-12-15 15:35 | P.PN ---
Subjective Progress Note Date: 12/15/17 This is a 87-year-old female, patient of Dr. Salgado. She has a known past medical history of coronary artery disease with stenting to the left circumflex in 2016 with an EF between 15-20% with severe cardiomyopathy, severe aortic stenosis status post TAVR October 2016, hypertension, chronic kidney disease, diet controlled diabetes mellitus, breast cancer status post mastectomy. She also has a history of hypothyroidism. Patient lives in assisted living home. Apparently she got up in the middle the night to walk to the bathroom and tripped and fell. She had significant pain and likely left hip and was brought into the emergency room for further evaluation and treatment. X-ray of the hip shows an acute comminuted displaced and trochanteric fracture of the left femur. She was admitted to orthopedic service. We have been consulted for medical management. Initially consult was placed for Dr. Conde who covers for Dr. Zhao. But there with clarification of patient's PCP which is Dr. Ledesma. Therefore consult was switched over today to us. During patient's fall she denies any loss of consciousness dizziness or lightheadedness. Denies any chest pain or shortness of breath. Denies any nausea or vomiting bowel movement changes or urinary symptoms. Apparently patient has been on Augmentin it is listed as one of her home medications for possibly a UTI. Urinalysis during this admission does show evidence of infection. Urine culture will be obtained. Patient is currently on Plavix and aspirin for her coronary artery disease and cardiac stents. I seen by cardiology these medications have been placed on hold. And they're anticipating surgery to be completed on Sunday. Patient currently lying in bed comfortably. No evidence of distress. 12/14/2017 patient is lying in bed comfortably. Pain is controlled. Hemoglobin has dropped to 7.3. She is receiving 1 unit of blood per orthopedic. She did have evidence of low iron of 19. Discuss with orthopedics. They're planning to proceed with surgery tomorrow. Also discussed with cardiology. Cardiology is recommending that patient be off of Plavix for 5 days due to increased risk of bleeding. Patient denies any chest pain or shortness of breath. Denies any nausea or vomiting. Denies any bowel movement changes or urinary symptoms. On 12/15/2017 patient was seen and examined she is laying in bed she is complaining of pain in her hip otherwise she denies any complaints no fever or chills no headache or dizziness no chest pain no shortness of breath no cough no nausea or vomiting no abdominal pain no diarrhea and no urinary symptoms Objective - Vital Signs Vital signs: Vital Signs Temp 98 F 12/15/17 11:45 Pulse 77 12/15/17 12:45 Resp 18 12/15/17 12:45 BP 186/81 12/15/17 13:00 Pulse Ox 93 L 12/15/17 13:00 Intake & Output 12/14/17 12/15/17 12/15/17 18:59 06:59 18:59 Intake Total 850 450 851 Output Total 650 450 550 Balance 200 0 301 Intake: IV 450 651 0.9 @ 75 450 Intake, IV Titration 100 Amount cefTRIAXone 1,000 mg In 100 Sodium Chloride 0.9% 50 ml @ 100 mls/hr IVPB Q24HR [facility] Rx#:[id number] Oral 540 100 Blood Product 310 Rc As-1 Unit 310 [id number] Output: Urine 650 450 450 Uretheral (Oropeza) 650 Estimated Blood Loss 100 Other: Voiding Method Indwelling Catheter Indwelling Catheter Indwelling Catheter - Exam Head normocephalic and atraumatic Neck supple no JVD no goiter Lungs clear to auscultation bilaterally no wheezing or crackles Heart regular rate and rhythm S1-S2, no rub or gallop Abdomen is soft nontender nondistended positive bowel sounds no hepatosplenomegaly Extremities no edema Neuro alert and orientated to 2. Her name and place - Labs CBC & Chem 7: 12/15/17 06:21 12/15/17 06:21 Labs: Abnormal Lab Results - Last 24 Hours (Table) 12/14/17 12/14/17 12/14/17 Range/Units 10:47 16:50 20:18 RBC (3.80-5.40) m/uL Hgb (11.4-16.0) gm/dL Hct (34.0-46.0) % Monocytes # (0-1.0) k/uL Carbon Dioxide (22-30) mmol/L BUN (7-17) mg/dL Creatinine (0.52-1.04) mg/dL POC Glucose (mg/dL) 129 H 183 H (75-99) mg/dL Total Protein (6.3-8.2) g/dL Albumin (3.5-5.0) g/dL Crossmatch See Detail 12/15/17 12/15/17 12/15/17 Range/Units 06:21 06:21 06:52 RBC 2.67 L (3.80-5.40) m/uL Hgb 7.9 L (11.4-16.0) gm/dL Hct 24.5 L (34.0-46.0) % Monocytes # 1.1 H (0-1.0) k/uL Carbon Dioxide 20 L (22-30) mmol/L BUN 61 H (7-17) mg/dL Creatinine 1.98 H (0.52-1.04) mg/dL POC Glucose (mg/dL) 104 H (75-99) mg/dL Total Protein 6.1 L (6.3-8.2) g/dL Albumin 2.7 L (3.5-5.0) g/dL Crossmatch 12/15/17 12/15/17 Range/Units 08:44 12:12 RBC (3.80-5.40) m/uL Hgb (11.4-16.0) gm/dL Hct (34.0-46.0) % Monocytes # (0-1.0) k/uL Carbon Dioxide (22-30) mmol/L BUN (7-17) mg/dL Creatinine (0.52-1.04) mg/dL POC Glucose (mg/dL) 102 H 104 H (75-99) mg/dL Total Protein (6.3-8.2) g/dL Albumin (3.5-5.0) g/dL Crossmatch Microbiology - Last 24 Hours (Table) 12/13/17 21:40 Urine Culture - Preliminary Urine,Catheterized Group D Enterococcus Assessment and Plan Plan: 1. Mechanical fall with intertrochanteric fracture of the left femur. Patient is scheduled for surgery on Sunday. Plavix is currently on hold. Cardiology recommending to hold Plavix for 5 days before surgical intervention due to the increased risk of bleeding. Orthopedics are planning to proceed with surgical intervention they're concerned about waiting that long will worsen patient's overall medical state. 2. Coronary artery disease status post stenting in July 2016. Aspirin and Plavix on hold. 3. Hypothyroidism continue Synthroid 75 g daily 4. 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 TAVR completed October 2016 6. Essential hypertension : Continue hydralazine and atenolol 7. History of ischemic cardiomyopathy with improvement of repeat echo showing an EF of 55-60% after the TAVR 8. Chronic systolic heart failure with improvement on repeat echo. Cardiology following. No evidence of exacerbation. Continue her oral Lasix 9. Acute on Chronic kidney disease stage IV. Continue with IV fluid hydration. Monitor closely while on Lasix 10. UTI: Send urine for culture. Continue Rocephin 11. Diet controlled diabetes mellitus per patient. A1c 5.1. Continue sliding scale during hospitalization 12. Anemia with evidence of iron deficiency anemia. Possible acute blood loss anemia at fracture site. Hemoglobin has dropped to 7.3. Discussed with orthopedics and they want to proceed with 1 unit of blood to prepare patient for surgical intervention.. Today's hemoglobin 7.9 Hematology has also been consulted. Patient did have a low hemoglobin in November 2017 of 9.8. Stool for occult blood collected GI prophylaxis Pepcid and DVT prophylaxis SCDs
[2017-12-15 16:51] LABS: Basophils % (A) 0 %; Eosinophils % (A) 0 %; HCT 27.2 % (34.0-46.0); HGB 8.5 gm/dL (11.4-16.0); Lymphocytes # (A) 0.9 k/uL (1.0-4.8); Lymphocytes % (A) 7 %; MCH 29.3 pg (25.0-35.0); MCHC 31.4 g/dL (31.0-37.0); MCV 93.2 fL (80.0-100.0); Mean Platelet Volume 6.9; Monocytes # (A) 1.2 k/uL (0-1.0); Monocytes % (A) 9 %; Neutrophils # (A) 10.6 k/uL (1.3-7.7); Neutrophils % (A) 83 %; Platelet Count 342 k/uL (150-450); RBC 2.92 m/uL (3.80-5.40); RDW 14.3 % (11.5-15.5); WBC 12.8 k/uL (3.8-10.6)
[2017-12-15 17:12] LABS: Glucose,Whole Blood 111 mg/dL (75-99)
[2017-12-15] MEDS: HYDROcodone/APAP 7.5-325MG 1 EACH TAB PO PRN ×2 (17:14→23:27)
[2017-12-15 20:25] LABS: Glucose,Whole Blood 216 mg/dL (75-99)
[2017-12-16] MEDS: SODIUM CHLORIDE 0.9% 1,000 ML IV SCH ×2 (03:52→09:32)
[2017-12-16 06:02] LABS: Glucose,Whole Blood 139 mg/dL (75-99)
[2017-12-16 06:23] LABS: Basophils % (A) 0 %; Eosinophils % (A) 0 %; HCT 22.6 % (34.0-46.0); HGB 7.3 gm/dL (11.4-16.0); Lymphocytes # (A) 1.5 k/uL (1.0-4.8); Lymphocytes % (A) 16 %; MCH 29.3 pg (25.0-35.0); MCHC 32.2 g/dL (31.0-37.0); Mean Platelet Volume 7.1; Monocytes # (A) 1.3 k/uL (0-1.0); Monocytes % (A) 14 %; Neutrophils # (A) 6.4 k/uL (1.3-7.7); Neutrophils % (A) 68 %; Platelet Count 295 k/uL (150-450); RBC 2.49 m/uL (3.80-5.40); RDW 14.3 % (11.5-15.5); WBC 9.5 k/uL (3.8-10.6)
[2017-12-16 06:37] LABS: Albumin 2.6 g/dL (3.5-5.0); Calcium 8.3 mg/dL (8.4-10.2); Potassium 4.5 mmol/L (3.5-5.1); Total Bilirubin 0.4 mg/dL (0.2-1.3); Total Protein 5.8 g/dL (6.3-8.2)
[2017-12-16] MEDS: LEVOTHYROXINE 75 MCG TAB PO SCH (06:55)
[2017-12-16] MEDS: INSULIN ASPART 100 UNIT/ML 1 ML 10 ML VIAL SQ SCH ×4 (06:55→20:58)
[2017-12-16] MEDS: hydrALAZINE HCL 50 MG TAB PO SCH ×3 (06:59→23:13)
[2017-12-16] MEDS: MORPHINE SULFATE 4 MG/ML SYRINGE IV PRN ×2 (07:00→11:50)
[2017-12-16] MEDS: FUROSEMIDE 40 MG TAB PO SCH (08:47)
[2017-12-16] MEDS: ATENOLOL 25 MG TAB PO SCH (08:47)
[2017-12-16] MEDS: SODIUM BICARBONATE TAB 650 MG TAB PO SCH ×2 (08:47→21:00)
[2017-12-16] MEDS: FAMOTIDINE 20 MG TAB PO SCH (08:47)
[2017-12-16] MEDS: OXYBUTYNIN XL 5 MG TAB.ER.24 PO SCH (08:47)
--- NOTE | 2017-12-16 08:58 | P.PN ---
Subjective Progress Note Date: 12/16/17 Principal diagnosis: Preop assessment before hip surgery This is a pleasant 87-year-old female patient following the office as an outpatient with a past medical history significant for coronary artery disease and prior stenting of the left circumflex, status post transcutaneous aortic valve replacement, as well as hypertension, fell at home and fractured her left hip. She underwent left hip surgery earlier today and was uneventful. On follow-up with her today, she denies having any chest pain or chest discomfort. She is more awake today. The pressure was elevated today and is better today on the current medical regimen was hydralazine and atenolol. From a cardiac vascular standpoint overview, we'll continue the current medical regimen and follow-up with the patient on when necessary case. Objective - Vital Signs Vital signs: Vital Signs Temp 98.4 F 12/16/17 06:49 Pulse 60 12/16/17 06:49 Resp 12 12/16/17 06:49 BP 143/68 12/16/17 06:49 Pulse Ox 96 12/15/17 23:25 Intake & Output 12/15/17 12/16/17 12/16/17 18:59 06:59 18:59 Intake Total 851 Output Total 550 385 Balance 301 -385 Weight 77.111 kg Intake: IV 651 Intake, IV Titration 100 Amount cefTRIAXone 1,000 mg In 100 Sodium Chloride 0.9% 50 ml @ 100 mls/hr IVPB Q24HR [facility] Rx#:[id number] Oral 100 Output: Urine 450 385 Uretheral (Oropeza) 300 Estimated Blood Loss 100 Other: Voiding Method Indwelling Catheter Indwelling Catheter - Constitutional General appearance: Present: no acute distress - Respiratory Respiratory: bilateral: CTA - Cardiovascular Heart sounds: normal: S1, S2 Abnormal Heart Sounds: Present: systolic murmur - Labs CBC & Chem 7: 12/16/17 05:27 12/16/17 05:27 Labs: Abnormal Lab Results - Last 24 Hours (Table) 12/14/17 12/15/17 12/15/17 Range/Units 10:47 12:12 16:34 WBC 12.8 H (3.8-10.6) k/uL RBC 2.92 L (3.80-5.40) m/uL Hgb 8.5 L (11.4-16.0) gm/dL Hct 27.2 L (34.0-46.0) % Neutrophils # 10.6 H (1.3-7.7) k/uL Lymphocytes # 0.9 L (1.0-4.8) k/uL Monocytes # 1.2 H (0-1.0) k/uL Sodium (137-145) mmol/L Chloride (98-107) mmol/L Carbon Dioxide (22-30) mmol/L BUN (7-17) mg/dL Creatinine (0.52-1.04) mg/dL Glucose (74-99) mg/dL POC Glucose (mg/dL) 104 H (75-99) mg/dL Calcium (8.4-10.2) mg/dL Total Protein (6.3-8.2) g/dL Albumin (3.5-5.0) g/dL Crossmatch See Detail 12/15/17 12/15/17 12/16/17 Range/Units 17:04 20:24 05:27 WBC (3.8-10.6) k/uL RBC 2.49 L (3.80-5.40) m/uL Hgb 7.3 L (11.4-16.0) gm/dL Hct 22.6 L (34.0-46.0) % Neutrophils # (1.3-7.7) k/uL Lymphocytes # (1.0-4.8) k/uL Monocytes # 1.3 H (0-1.0) k/uL Sodium (137-145) mmol/L Chloride (98-107) mmol/L Carbon Dioxide (22-30) mmol/L BUN (7-17) mg/dL Creatinine (0.52-1.04) mg/dL Glucose (74-99) mg/dL POC Glucose (mg/dL) 111 H 216 H (75-99) mg/dL Calcium (8.4-10.2) mg/dL Total Protein (6.3-8.2) g/dL Albumin (3.5-5.0) g/dL Crossmatch 12/16/17 12/16/17 Range/Units 05:27 05:59 WBC (3.8-10.6) k/uL RBC (3.80-5.40) m/uL Hgb (11.4-16.0) gm/dL Hct (34.0-46.0) % Neutrophils # (1.3-7.7) k/uL Lymphocytes # (1.0-4.8) k/uL Monocytes # (0-1.0) k/uL Sodium 135 L (137-145) mmol/L Chloride 108 H (98-107) mmol/L Carbon Dioxide 18 L (22-30) mmol/L BUN 56 H (7-17) mg/dL Creatinine 1.85 H (0.52-1.04) mg/dL Glucose 117 H (74-99) mg/dL POC Glucose (mg/dL) 139 H (75-99) mg/dL Calcium 8.3 L (8.4-10.2) mg/dL Total Protein 5.8 L (6.3-8.2) g/dL Albumin 2.6 L (3.5-5.0) g/dL Crossmatch Microbiology - Last 24 Hours (Table) 12/13/17 21:40 Urine Culture - Final Urine,Catheterized Enterococcus faecalis Assessment and Plan Assessment: Assessment #1 status post fall with left hip fracture #2 coronary artery disease and prior stenting of the left circumflex #3 status post TAVR #4 hypertension Plan Continue the current medical regimen #1 continue the current medical regimen #2 follow-up with the patient on when necessary case
[2017-12-16] MEDS: SODIUM FERRIC GLUCONAT-SUCROSE 125 MG in SODIUM CHLORIDE 0.9% 100 ML IVPB SCH (09:32)
--- NOTE | 2017-12-16 10:40 | P.PN ---
Subjective Progress Note Date: 12/16/17 Principal diagnosis: Intramedullary nailing left subtrochanteric/peritrochanteric fracture Patient evaluated today bedside, she is resting comfortably. Her pain is controlled. She denies any current chest pain or shortness of breath. Objective - Vital Signs Vital signs: Vital Signs Temp 98.4 F 12/16/17 06:49 Pulse 60 12/16/17 06:49 Resp 12 12/16/17 06:49 BP 143/68 12/16/17 06:49 Pulse Ox 96 12/15/17 23:25 Intake & Output 12/15/17 12/16/17 12/16/17 18:59 06:59 18:59 Intake Total 851 Output Total 550 385 Balance 301 -385 Weight 77.111 kg Intake: IV 651 Intake, IV Titration 100 Amount cefTRIAXone 1,000 mg In 100 Sodium Chloride 0.9% 50 ml @ 100 mls/hr IVPB Q24HR [facility] Rx#:[id number] Oral 100 Output: Urine 450 385 Uretheral (Oropeza) 300 Estimated Blood Loss 100 Other: Voiding Method Indwelling Catheter Indwelling Catheter - Exam Left lower extremity: Initial postoperative bandage is in place Skin is warm to touch Plantar flexion, dorsiflexion, EHL, FHL are intact Sensory exam light touch short extremities intact - Labs CBC & Chem 7: 12/16/17 05:27 12/16/17 05:27 Labs: Abnormal Lab Results - Last 24 Hours (Table) 12/14/17 12/15/17 12/15/17 Range/Units 10:47 12:12 16:34 WBC 12.8 H (3.8-10.6) k/uL RBC 2.92 L (3.80-5.40) m/uL Hgb 8.5 L (11.4-16.0) gm/dL Hct 27.2 L (34.0-46.0) % Neutrophils # 10.6 H (1.3-7.7) k/uL Lymphocytes # 0.9 L (1.0-4.8) k/uL Monocytes # 1.2 H (0-1.0) k/uL Sodium (137-145) mmol/L Chloride (98-107) mmol/L Carbon Dioxide (22-30) mmol/L BUN (7-17) mg/dL Creatinine (0.52-1.04) mg/dL Glucose (74-99) mg/dL POC Glucose (mg/dL) 104 H (75-99) mg/dL Calcium (8.4-10.2) mg/dL Total Protein (6.3-8.2) g/dL Albumin (3.5-5.0) g/dL Crossmatch See Detail 12/15/17 12/15/17 12/16/17 Range/Units 17:04 20:24 05:27 WBC (3.8-10.6) k/uL RBC 2.49 L (3.80-5.40) m/uL Hgb 7.3 L (11.4-16.0) gm/dL Hct 22.6 L (34.0-46.0) % Neutrophils # (1.3-7.7) k/uL Lymphocytes # (1.0-4.8) k/uL Monocytes # 1.3 H (0-1.0) k/uL Sodium (137-145) mmol/L Chloride (98-107) mmol/L Carbon Dioxide (22-30) mmol/L BUN (7-17) mg/dL Creatinine (0.52-1.04) mg/dL Glucose (74-99) mg/dL POC Glucose (mg/dL) 111 H 216 H (75-99) mg/dL Calcium (8.4-10.2) mg/dL Total Protein (6.3-8.2) g/dL Albumin (3.5-5.0) g/dL Crossmatch 12/16/17 12/16/17 Range/Units 05:27 05:59 WBC (3.8-10.6) k/uL RBC (3.80-5.40) m/uL Hgb (11.4-16.0) gm/dL Hct (34.0-46.0) % Neutrophils # (1.3-7.7) k/uL Lymphocytes # (1.0-4.8) k/uL Monocytes # (0-1.0) k/uL Sodium 135 L (137-145) mmol/L Chloride 108 H (98-107) mmol/L Carbon Dioxide 18 L (22-30) mmol/L BUN 56 H (7-17) mg/dL Creatinine 1.85 H (0.52-1.04) mg/dL Glucose 117 H (74-99) mg/dL POC Glucose (mg/dL) 139 H (75-99) mg/dL Calcium 8.3 L (8.4-10.2) mg/dL Total Protein 5.8 L (6.3-8.2) g/dL Albumin 2.6 L (3.5-5.0) g/dL Crossmatch Microbiology - Last 24 Hours (Table) 12/13/17 21:40 Urine Culture - Final Urine,Catheterized Enterococcus faecalis Assessment and Plan Plan: Assessment: 1. Postop day #1 status post intramedullary nailing left subtrochanteric/ peritrochanteric femur fracture 2. Anemia Plan: Pain control, continue his current medication GI and DVT prophylaxis, did resume patient's Plavix 75 mg daily today Weightbearing restrictions, recommend toe-touch weightbearing with transfers Other caregivers non medical recommendations Daily dressing changes Patient is currently receiving IV iron, I did order 1 more unit of packed red blood cells, recheck CBC in the morning Discharge planning: It is to discharge to rehab in stable Time with Patient: Less than 30
[2017-12-16 11:56] LABS: Glucose,Whole Blood 156 mg/dL (75-99)
[2017-12-16] MEDS ORDERED: ENOXAPARIN 30 MG/0.3 ML SYRINGE SQ SCH (14:00)
--- NOTE | 2017-12-16 14:10 | P.PN ---
Subjective Progress Note Date: 12/16/17 This is a 87-year-old female, patient of Dr. Salgado. She has a known past medical history of coronary artery disease with stenting to the left circumflex in 2016 with an EF between 15-20% with severe cardiomyopathy, severe aortic stenosis status post TAVR October 2016, hypertension, chronic kidney disease, diet controlled diabetes mellitus, breast cancer status post mastectomy. She also has a history of hypothyroidism. Patient lives in assisted living home. Apparently she got up in the middle the night to walk to the bathroom and tripped and fell. She had significant pain and likely left hip and was brought into the emergency room for further evaluation and treatment. X-ray of the hip shows an acute comminuted displaced and trochanteric fracture of the left femur. She was admitted to orthopedic service. We have been consulted for medical management. Initially consult was placed for Dr. Conde who covers for Dr. Zhao. But there with clarification of patient's PCP which is Dr. Ledesma. Therefore consult was switched over today to us. During patient's fall she denies any loss of consciousness dizziness or lightheadedness. Denies any chest pain or shortness of breath. Denies any nausea or vomiting bowel movement changes or urinary symptoms. Apparently patient has been on Augmentin it is listed as one of her home medications for possibly a UTI. Urinalysis during this admission does show evidence of infection. Urine culture will be obtained. Patient is currently on Plavix and aspirin for her coronary artery disease and cardiac stents. I seen by cardiology these medications have been placed on hold. And they're anticipating surgery to be completed on Sunday. Patient currently lying in bed comfortably. No evidence of distress. 12/14/2017 patient is lying in bed comfortably. Pain is controlled. Hemoglobin has dropped to 7.3. She is receiving 1 unit of blood per orthopedic. She did have evidence of low iron of 19. Discuss with orthopedics. They're planning to proceed with surgery tomorrow. Also discussed with cardiology. Cardiology is recommending that patient be off of Plavix for 5 days due to increased risk of bleeding. Patient denies any chest pain or shortness of breath. Denies any nausea or vomiting. Denies any bowel movement changes or urinary symptoms. On 12/15/2017 patient was seen and examined she is laying in bed she is complaining of pain in her hip otherwise she denies any complaints no fever or chills no headache or dizziness no chest pain no shortness of breath no cough no nausea or vomiting no abdominal pain no diarrhea and no urinary symptoms On 12/16/2017 patient was seen and examined she is alert and oriented 3 she is complaining of pain and swelling in her right upper extremity extending from the hand to right below the shoulder IV is in the right forearm at this time patient is also having pain in the hip otherwise she denies any complaints there is no fever or chills no headache or dizziness no chest pain no shortness of breath no cough no nausea or vomiting no abdominal pain and no urinary symptoms Objective - Vital Signs Vital signs: Vital Signs Temp 98.4 F 12/16/17 06:49 Pulse 60 12/16/17 06:49 Resp 14 12/16/17 07:05 BP 143/68 12/16/17 06:49 Pulse Ox 96 12/15/17 23:25 Intake & Output 12/15/17 12/16/17 12/16/17 18:59 06:59 18:59 Intake Total 851 400 Output Total 550 385 Balance 301 -385 400 Weight 77.111 kg 77.111 kg Intake: IV 651 Intake, IV Titration 100 Amount cefTRIAXone 1,000 mg In 100 Sodium Chloride 0.9% 50 ml @ 100 mls/hr IVPB Q24HR [facility] Rx#:[id number] Oral 100 400 Output: Urine 450 385 Uretheral (Oropeza) 300 Estimated Blood Loss 100 Other: Voiding Method Indwelling Catheter Indwelling Catheter Indwelling Catheter - Exam Head normocephalic and atraumatic Neck supple no JVD no goiter Lungs clear to auscultation bilaterally no wheezing or crackles Heart regular rate and rhythm S1-S2, no rub or gallop Abdomen is soft nontender nondistended positive bowel sounds no hepatosplenomegaly Extremities no edema in the lower extremities, patient has pain and swelling in the right upper extremity Neuro alert and orientated to 2. Her name and place - Labs CBC & Chem 7: 12/16/17 05:27 12/16/17 05:27 Labs: Abnormal Lab Results - Last 24 Hours (Table) 12/14/17 12/15/17 12/15/17 Range/Units 10:47 16:34 17:04 WBC 12.8 H (3.8-10.6) k/uL RBC 2.92 L (3.80-5.40) m/uL Hgb 8.5 L (11.4-16.0) gm/dL Hct 27.2 L (34.0-46.0) % Neutrophils # 10.6 H (1.3-7.7) k/uL Lymphocytes # 0.9 L (1.0-4.8) k/uL Monocytes # 1.2 H (0-1.0) k/uL Sodium (137-145) mmol/L Chloride (98-107) mmol/L Carbon Dioxide (22-30) mmol/L BUN (7-17) mg/dL Creatinine (0.52-1.04) mg/dL Glucose (74-99) mg/dL POC Glucose (mg/dL) 111 H (75-99) mg/dL Calcium (8.4-10.2) mg/dL Total Protein (6.3-8.2) g/dL Albumin (3.5-5.0) g/dL Crossmatch See Detail 12/15/17 12/16/17 12/16/17 Range/Units 20:24 05:27 05:27 WBC (3.8-10.6) k/uL RBC 2.49 L (3.80-5.40) m/uL Hgb 7.3 L (11.4-16.0) gm/dL Hct 22.6 L (34.0-46.0) % Neutrophils # (1.3-7.7) k/uL Lymphocytes # (1.0-4.8) k/uL Monocytes # 1.3 H (0-1.0) k/uL Sodium 135 L (137-145) mmol/L Chloride 108 H (98-107) mmol/L Carbon Dioxide 18 L (22-30) mmol/L BUN 56 H (7-17) mg/dL Creatinine 1.85 H (0.52-1.04) mg/dL Glucose 117 H (74-99) mg/dL POC Glucose (mg/dL) 216 H (75-99) mg/dL Calcium 8.3 L (8.4-10.2) mg/dL Total Protein 5.8 L (6.3-8.2) g/dL Albumin 2.6 L (3.5-5.0) g/dL Crossmatch 12/16/17 12/16/17 Range/Units 05:59 11:39 WBC (3.8-10.6) k/uL RBC (3.80-5.40) m/uL Hgb (11.4-16.0) gm/dL Hct (34.0-46.0) % Neutrophils # (1.3-7.7) k/uL Lymphocytes # (1.0-4.8) k/uL Monocytes # (0-1.0) k/uL Sodium (137-145) mmol/L Chloride (98-107) mmol/L Carbon Dioxide (22-30) mmol/L BUN (7-17) mg/dL Creatinine (0.52-1.04) mg/dL Glucose (74-99) mg/dL POC Glucose (mg/dL) 139 H 156 H (75-99) mg/dL Calcium (8.4-10.2) mg/dL Total Protein (6.3-8.2) g/dL Albumin (3.5-5.0) g/dL Crossmatch Microbiology - Last 24 Hours (Table) 12/13/17 21:40 Urine Culture - Final Urine,Catheterized Enterococcus faecalis Assessment and Plan Plan: 1. Mechanical fall with intertrochanteric fracture of the left femur. Patient is scheduled for surgery on Sunday. Plavix is currently on hold. Cardiology recommending to hold Plavix for 5 days before surgical intervention due to the increased risk of bleeding. Orthopedics are planning to proceed with surgical intervention they're concerned about waiting that long will worsen patient's overall medical state. 2. Coronary artery disease status post stenting in July 2016. Aspirin and Plavix on hold. 3. Hypothyroidism continue Synthroid 75 g daily 4. 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 TAVR completed October 2016 6. Essential hypertension : Continue hydralazine and atenolol 7. History of ischemic cardiomyopathy with improvement of repeat echo showing an EF of 55-60% after the TAVR 8. Chronic systolic heart failure with improvement on repeat echo. Cardiology following. No evidence of exacerbation. Continue her oral Lasix 9. Acute on Chronic kidney disease stage IV. Continue with IV fluid hydration. Monitor closely while on Lasix 10. UTI: Send urine for culture. Continue Rocephin 11. Diet controlled diabetes mellitus per patient. A1c 5.1. Continue sliding scale during hospitalization 12. Anemia with evidence of iron deficiency anemia. Possible acute blood loss anemia at fracture site. Hemoglobin has dropped to 7.5. We will give 1 more unit of red blood cell transfusion Hematology has also been consulted. Patient did have a low hemoglobin in November 2017 of 9.8. Stool for occult blood collected GI prophylaxis Pepcid and DVT prophylaxis SCDs, will add Lovenox 40 mg subcu daily
[2017-12-16] MEDS: HYDROcodone/APAP 7.5-325MG 1 EACH TAB PO PRN (14:24)
--- NOTE | 2017-12-16 16:11 | US ---
EXAMINATION TYPE: US venous doppler duplex UE RT DATE OF EXAM: 12/16/2017 COMPARISON: NONE CLINICAL HISTORY: rule out DVT, RUE swelling. limited study, pt in pain, portable scan SIDE PERFORMED: right Some exam limitations due to portable environment. Right Arm: thrombosed seen with the rt subcl vn medially at the ijv junction, remainder of exam appea rs wnl. IMPRESSION: There is patency of the axillary and brachial vein. There is thrombosis demonstrated in the subclavia n vein at the junction with the jugular vein.
[2017-12-16] MEDS: CLOPIDOGREL 75 MG TAB PO SCH (16:20)
[2017-12-16 16:53] LABS: Glucose,Whole Blood 174 mg/dL (75-99)
[2017-12-16 20:04] LABS: Glucose,Whole Blood 118 mg/dL (75-99)
[2017-12-16] MEDS ORDERED: ENOXAPARIN 80 MG/0.8 ML SYRINGE SQ SCH ×2 (22:00)
[2017-12-17] MEDS: HYDROcodone/APAP 7.5-325MG 1 EACH TAB PO PRN ×3 (02:30→16:39)
[2017-12-17] MEDS ORDERED: FUROSEMIDE 10 MG/ML 2 ML VIAL IV STA (03:12)
[2017-12-17] MEDS: MORPHINE SULFATE 4 MG/ML SYRINGE IV PRN ×3 (03:19→19:04)
[2017-12-17] MEDS: SODIUM CHLORIDE 0.9% 1,000 ML IV SCH ×2 (04:02→16:40)
[2017-12-17] MEDS: LEVOTHYROXINE 75 MCG TAB PO SCH (06:21)
[2017-12-17 07:20] LABS: Glucose,Whole Blood 99 mg/dL (75-99)
[2017-12-17] MEDS: INSULIN ASPART 100 UNIT/ML 1 ML 10 ML VIAL SQ SCH ×4 (07:28→22:13)
--- NOTE | 2017-12-17 07:39 | US ---
EXAMINATION TYPE: US venous doppler duplex LE LT DATE OF EXAM: 12/17/2017 6:25 AM COMPARISON: NONE CLINICAL HISTORY: 87-year-old female calf pain . SIDE PERFORMED: Left TECHNIQUE: The lower extremity deep venous system is examined utilizing real time linear array sonog keri with graded compression, doppler sonography and color-flow sonography. FINDINGS: VESSELS IMAGED: External Iliac Vein (EIV) Common Femoral Vein Deep Femoral Vein Greater Saphenous Vein * Femoral Vein Popliteal Vein Small Saphenous Vein * Proximal Calf Veins (* superficial vessels) Extensive soft tissue swelling is noted. [employer] notes: Left Leg: Patient scanned from EIV to distal femoral vein. Patient stopped test an d would not let examiner scan pop fossa. She was in too much pain. Patient negative for DVT as seen i n this limited exam. IMPRESSION: Scanning only performed from the left external iliac vein down into the lower femoral vein prior to t he patient terminating the study. Note that the popliteal fossa or upper calf was not assessed. Diffu se soft tissue swelling is noted. No DVT seen within the thigh. Again, the popliteal fossa and upper calf is not assessed.
[2017-12-17] MEDS: FUROSEMIDE 40 MG TAB PO SCH (08:00)
[2017-12-17] MEDS: FAMOTIDINE 20 MG TAB PO SCH (08:00)
[2017-12-17] MEDS: hydrALAZINE HCL 50 MG TAB PO SCH ×2 (08:00→16:39)
[2017-12-17] MEDS: OXYBUTYNIN XL 5 MG TAB.ER.24 PO SCH (08:00)
[2017-12-17] MEDS: ATENOLOL 25 MG TAB PO SCH (08:00)
[2017-12-17] MEDS: SODIUM BICARBONATE TAB 650 MG TAB PO SCH ×2 (08:00→22:19)
[2017-12-17] MEDS: CLOPIDOGREL 75 MG TAB PO SCH (08:00)
[2017-12-17] MEDS: ALPRAZolam 0.25 MG TAB PO PRN (10:12)
[2017-12-17] MEDS ORDERED: HEPARIN SODIUM,PORCINE 5,000 UNIT/ML 1 ML VIAL IV PRN (10:40)
[2017-12-17] MEDS ORDERED: HEPARIN SODIUM,PORCINE 10,000 UNIT/ML 1 ML VIAL IV ONE (10:40)
[2017-12-17 11:21] LABS: Basophils # (A) 0.1 k/uL (0-0.2); Basophils % (A) 1 %; Eosinophils # (A) 0.1 k/uL (0-0.7); Eosinophils % (A) 1 %; HCT 27.7 % (34.0-46.0); Lymphocytes # (A) 1.3 k/uL (1.0-4.8); Lymphocytes % (A) 11 %; MCH 30.8 pg (25.0-35.0); MCHC 33.8 g/dL (31.0-37.0); MCV 91.1 fL (80.0-100.0); Mean Platelet Volume 7.6; Monocytes # (A) 1.1 k/uL (0-1.0); Monocytes % (A) 10 %; Neutrophils # (A) 8.7 k/uL (1.3-7.7); Neutrophils % (A) 77 %; Platelet Count 351 k/uL (150-450); RBC 3.04 m/uL (3.80-5.40); RDW 14.5 % (11.5-15.5); WBC 11.3 k/uL (3.8-10.6)
[2017-12-17 11:26] LABS: HGB 9.4 gm/dL (11.4-16.0)
[2017-12-17 11:34] LABS: Albumin 2.8 g/dL (3.5-5.0); Calcium 8.4 mg/dL (8.4-10.2); Potassium 4.4 mmol/L (3.5-5.1); Total Bilirubin 0.8 mg/dL (0.2-1.3); Total Protein 6.3 g/dL (6.3-8.2)
[2017-12-17 11:46] LABS: Glucose,Whole Blood 133 mg/dL (75-99)
--- NOTE | 2017-12-17 11:57 | P.PN ---
Subjective Progress Note Date: 12/17/17 This is a 87-year-old female, patient of Dr. Salgado. She has a known past medical history of coronary artery disease with stenting to the left circumflex in 2016 with an EF between 15-20% with severe cardiomyopathy, severe aortic stenosis status post TAVR October 2016, hypertension, chronic kidney disease, diet controlled diabetes mellitus, breast cancer status post mastectomy. She also has a history of hypothyroidism. Patient lives in assisted living home. Apparently she got up in the middle the night to walk to the bathroom and tripped and fell. She had significant pain and likely left hip and was brought into the emergency room for further evaluation and treatment. X-ray of the hip shows an acute comminuted displaced and trochanteric fracture of the left femur. She was admitted to orthopedic service. We have been consulted for medical management. Initially consult was placed for Dr. Conde who covers for Dr. Zhao. But there with clarification of patient's PCP which is Dr. Ledesma. Therefore consult was switched over today to us. During patient's fall she denies any loss of consciousness dizziness or lightheadedness. Denies any chest pain or shortness of breath. Denies any nausea or vomiting bowel movement changes or urinary symptoms. Apparently patient has been on Augmentin it is listed as one of her home medications for possibly a UTI. Urinalysis during this admission does show evidence of infection. Urine culture will be obtained. Patient is currently on Plavix and aspirin for her coronary artery disease and cardiac stents. I seen by cardiology these medications have been placed on hold. And they're anticipating surgery to be completed on Sunday. Patient currently lying in bed comfortably. No evidence of distress. 12/14/2017 patient is lying in bed comfortably. Pain is controlled. Hemoglobin has dropped to 7.3. She is receiving 1 unit of blood per orthopedic. She did have evidence of low iron of 19. Discuss with orthopedics. They're planning to proceed with surgery tomorrow. Also discussed with cardiology. Cardiology is recommending that patient be off of Plavix for 5 days due to increased risk of bleeding. Patient denies any chest pain or shortness of breath. Denies any nausea or vomiting. Denies any bowel movement changes or urinary symptoms. On 12/15/2017 patient was seen and examined she is laying in bed she is complaining of pain in her hip otherwise she denies any complaints no fever or chills no headache or dizziness no chest pain no shortness of breath no cough no nausea or vomiting no abdominal pain no diarrhea and no urinary symptoms On 12/16/2017 patient was seen and examined she is alert and oriented 3 she is complaining of pain and swelling in her right upper extremity extending from the hand to right below the shoulder IV is in the right forearm at this time patient is also having pain in the hip otherwise she denies any complaints there is no fever or chills no headache or dizziness no chest pain no shortness of breath no cough no nausea or vomiting no abdominal pain and no urinary symptoms 12/17/2017 patient has had increased swelling in the right upper arm which was positive for a DVT. Left leg also having increased swelling and pain. Patient not able to complete full ultrasound of the leg. What was evaluated was negative for DVT. Patient is having a lot of pain in the left leg groin area. Nurses have having difficulty getting IV access. Patient is not a candidate for a midline. Patient has had a history of a left mastectomy and the right arm has the blood clot. [facility] will be [facility] a central line in the right groin. Patient did receive a unit of blood yesterday. Hemoglobin has gone up from 7.3-9.4. White count has also increased 11.3. She is having blood drainage at the right medial thigh from a small laceration. Otherwise no signs of cellulitis. Urine culture growing Enterococcus faecalis Objective - Vital Signs Vital signs: Vital Signs Temp 98.2 F 12/17/17 07:00 Pulse 62 12/17/17 07:00 Resp 16 12/17/17 08:00 BP 144/63 12/17/17 07:00 Pulse Ox 98 12/17/17 02:35 Intake & Output 12/16/17 12/17/17 12/17/17 18:59 06:59 18:59 Intake Total 1762 910 300 Output Total 725 Balance 1762 185 300 Weight 77.111 kg Intake: IV 600 0.9 @ 75 600 Intake, IV Titration 562 Amount Sodium Chloride 0.9% 1, 450 000 ml @ 75 mls/hr IV . [id number] [facility] Rx#:[id number] Sodium Chloride 0.9% 500 12 ml @ 0 mls/hr IV [facility] Rx#:[id number] Sodium Ferric Gluconat- 100 Sucrose 125 mg In Sodium Chloride 0.9% 100 ml @ 100 mls/hr IVPB DAILY [facility] Rx#:[id number] Oral 1200 300 Blood Product 310 Rc As-1 Unit 310 [id number] Output: Urine 725 Other: Voiding Method Indwelling Catheter Indwelling Catheter Indwelling Catheter - Exam Head normocephalic Neck supple Lungs clear to auscultation bilaterally no wheezing or crackles Heart regular rate and rhythm S1-S2, no rub or gallop Abdomen is soft nontender nondistended positive bowel sounds no hepatosplenomegaly Extremities left leg is swollen and calf tenderness. Dressing blood saturation noted on the left thigh medial area mall laceration. Left hip incision clean dry and intact. Neuro alert and orientated to 2. Her name and place - Labs CBC & Chem 7: 12/17/17 10:49 12/17/17 10:39 Labs: Abnormal Lab Results - Last 24 Hours (Table) 12/14/17 12/16/17 12/16/17 Range/Units 10:47 11:39 16:42 WBC (3.8-10.6) k/uL RBC (3.80-5.40) m/uL Hgb (11.4-16.0) gm/dL Hct (34.0-46.0) % Neutrophils # (1.3-7.7) k/uL Monocytes # (0-1.0) k/uL Sodium (137-145) mmol/L Carbon Dioxide (22-30) mmol/L BUN (7-17) mg/dL Creatinine (0.52-1.04) mg/dL Glucose (74-99) mg/dL POC Glucose (mg/dL) 156 H 174 H (75-99) mg/dL AST (14-36) U/L Alkaline Phosphatase (38-126) U/L Albumin (3.5-5.0) g/dL Crossmatch See Detail 12/16/17 12/17/17 12/17/17 Range/Units 19:52 10:39 10:49 WBC 11.3 H (3.8-10.6) k/uL RBC 3.04 L (3.80-5.40) m/uL Hgb 9.4 L D (11.4-16.0) gm/dL Hct 27.7 L (34.0-46.0) % Neutrophils # 8.7 H (1.3-7.7) k/uL Monocytes # 1.1 H (0-1.0) k/uL Sodium 134 L (137-145) mmol/L Carbon Dioxide 15 L (22-30) mmol/L BUN 52 H (7-17) mg/dL Creatinine 1.82 H (0.52-1.04) mg/dL Glucose 116 H (74-99) mg/dL POC Glucose (mg/dL) 118 H (75-99) mg/dL AST 38 H (14-36) U/L Alkaline Phosphatase 128 H (38-126) U/L Albumin 2.8 L (3.5-5.0) g/dL Crossmatch Assessment and Plan Assessment: 1. Mechanical fall with intertrochanteric fracture of the left femur. Status post trochanteric intramedullary nailing 2. Coronary artery disease status post stenting in July 2016. Plavix restarted 3. Hypothyroidism continue Synthroid 75 g daily 4. 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 TAVR completed October 2016 6. Essential hypertension : Continue hydralazine and atenolol 7. History of ischemic cardiomyopathy with improvement of repeat echo showing an EF of 55-60% after the TAVR 8. Chronic systolic heart failure with improvement on repeat echo. Cardiology following. No evidence of exacerbation. Continue her oral Lasix 9. Acute on Chronic kidney disease stage IV. Continue with IV fluid hydration. Monitor closely while on Lasix. Kidney function trending down. Creatinine is down to 1.82. 10. UTI: Urine culture growing enterococcus faecalis. Discontinue Rocephin. start amoxicillin 11. Diet controlled diabetes mellitus per patient. A1c 5.1. Continue sliding scale during hospitalization 12. Anemia with evidence of iron deficiency anemia. Possible acute blood loss anemia at fracture site. Hemoglobin has dropped to 7.3. Start ferrous sulfate and 25 mg twice a day. Low iron levels. Patient did require another unit of blood yesterday. Hemoglobin has gone from 7.3-9.4. Patient did have a low hemoglobin in November 2017 of 9.8. Stool for occult blood uncollected 13. Right arm DVT: Start IV heparin. Consult Dr. Leo. Concerns also for possible left leg DVT. Patient unable to tolerate the venous Doppler. 14. Leukocytosis: We'll monitor GI prophylaxis Pepcid and DVT prophylaxis SCDs I performed an examination of the patient and discussed their management with the physician [employer]. I have reviewed the Physician [employer]'s notes and agree with the documented findings and plan of care
--- NOTE | 2017-12-17 12:03 | CONS ---
CONSULTATION This is an 87-year-old female. She has been admitted with a history of left femur fracture post fall. Patient went for surgery on Sunday. The patient has been complaining of pain in her left lower extremities. Ultrasound was performed. Femoral vein, popliteal were visualized but no clot seen, but she was in pain. Examination was stopped and also patient noticed some swelling in the right arm and ultrasound showed there is a DVT of the right subclavian vein and axillary vein is patent. PHYSICAL EXAMINATION: On examination, patient was seen in her room. She is lying comfortably in bed. She has been complaining of some discomfort in the left leg because of the recent surgery. Her neck is supple. No bruit appreciated. Right arm: There is mild swelling noted, but no vascular compromise. The brachial, radial and axillary pulses are present. The patient has some swelling of the left lower extremity, postsurgical. PLAN: The patient is on heparin, which will be continued, right arm elevation. At this point, patient is not a candidate for tPA because of recent surgery. We will follow with you. Continue with heparin followed by oral anticoagulation. We will follow with you. MMODL / IJN: [id number] /
--- NOTE | 2017-12-17 12:36 | PCN ---
PROCEDURE NOTE PROCEDURE: Right femoral vein triple-lumen catheter. PREOPERATIVE DIAGNOSIS: Administration of fluids and IV medications. POSTOPERATIVE DIAGNOSIS: Administration of fluids and IV medications. There was informed consent. There was universal timeout. TRIPLE LUMEN CATHETER PLACEMENT: Indication: Hemodynamic monitoring/Intravenous access. A time-out was completed verifying correct patient, procedure, site, positioning, and implant(s) or special equipment if applicable. The patient was placed in a dependent position appropriate for triple lumen catheter placement based on the vein to be cannulated. The patient's left groin was prepped and draped in sterile fashion. 1% Lidocaine was used to anesthetize the surrounding skin area. A triple lumen 9F Cordis catheter was introduced into the right common femoral vein using Seldinger technique. The catheter was threaded smoothly over the guide wire and appropriate blood return was obtained. Each lumen of the catheter was evacuated of air and flushed with sterile saline. The catheter was then sutured in place to the skin and a sterile dressing applied. Perfusion to the extremity distal to the point of catheter insertion was checked and found to be adequate. Right femoral vein triple-lumen catheter was placed without difficulty. Dr. Hannah was the capper machine operator. I was assisted by Daxa Shelley NP. There was no immediate complications. No chest x-ray is needed. The catheter was sutured in place. Sterile dressings applied by the nurse. There was no immediate complications. MMODL / IJN: [id number] /
[2017-12-17] MEDS: HYDROmorphone 1 MG/ML 1 ML SYRINGE IVP PRN ×3 (12:41→22:19)
[2017-12-17] MEDS: HEPARIN SOD,PORK IN 0.45% NACL 25,000 UNIT in 0.45% NACL 1 500ML.BAG IV SCH (12:58)
[2017-12-17 13:54] LABS: Basophils % (A) 0 %; Eosinophils # (A) 0.1 k/uL (0-0.7); Eosinophils % (A) 1 %; HCT 26.6 % (34.0-46.0); HGB 8.8 gm/dL (11.4-16.0); Lymphocytes # (A) 1.1 k/uL (1.0-4.8); Lymphocytes % (A) 10 %; MCHC 33.1 g/dL (31.0-37.0); MCV 93.5 fL (80.0-100.0); Mean Platelet Volume 8.3; Monocytes % (A) 10 %; Neutrophils # (A) 8.1 k/uL (1.3-7.7); Neutrophils % (A) 78 %; Platelet Count 333 k/uL (150-450); RBC 2.84 m/uL (3.80-5.40); RDW 14.5 % (11.5-15.5); WBC 10.4 k/uL (3.8-10.6)
[2017-12-17 14:16] LABS: Prothrombin Time 10.2 sec (9.0-12.0)
[2017-12-17 14:20] LABS: Partial Thromboplastin Time 158.9 sec (22.0-30.0)
[2017-12-17] MEDS: AMOXICILLIN 500 MG CAP PO SCH (16:39)
[2017-12-17 17:02] LABS: Glucose,Whole Blood 106 mg/dL (75-99)
--- NOTE | 2017-12-17 17:25 | P.PN ---
Subjective Progress Note Date: 12/17/17 Principal diagnosis: Intramedullary nailing left subtrochanteric/peritrochanteric fracture Patient evaluated today bedside, she is resting comfortably. Apparently through the night and into the early this morning, patient noted significant pain and swelling of the right upper extremity. She is also complaining of increased pain in the left lower extremity. A Doppler ultrasound was used on the right upper extremity and attempt was made on the left lower extremity. She was unable to complete the exam on the left lower extremity, exam revealed negative evidence of DVT. Upper extremity ultrasound demonstrated a thrombus. She was started on heparin. A central line was placed in the right groin due to limited IV access of the upper extremities. There is also noted a draining wound on the medial aspect of the thigh, this has been properly bandage. IV pain medication has been adjusted, her pain is better controlled. Vascular was consulted with regards to the blood clots. Objective - Vital Signs Vital signs: Vital Signs Temp 98.4 F 12/17/17 15:01 Pulse 68 12/17/17 15:01 Resp 16 12/17/17 15:01 BP 178/83 12/17/17 15:01 Pulse Ox 98 12/17/17 15:01 Intake & Output 12/16/17 12/17/17 12/17/17 18:59 06:59 18:59 Intake Total 1762 910 300 Output Total 725 Balance 1762 185 300 Weight 77.111 kg Intake: IV 600 0.9 @ 75 600 Intake, IV Titration 562 Amount Sodium Chloride 0.9% 1, 450 000 ml @ 75 mls/hr IV . [id number] [facility] Rx#:[id number] Sodium Chloride 0.9% 500 12 ml @ 0 mls/hr IV .STK-MED ONE Rx#:[id number] Sodium Ferric Gluconat- 100 Sucrose 125 mg In Sodium Chloride 0.9% 100 ml @ 100 mls/hr IVPB DAILY [facility] Rx#:[id number] Oral 1200 300 Blood Product 310 Rc As-1 Unit 310 [id number] Output: Urine 725 Other: Voiding Method Indwelling Catheter Indwelling Catheter Indwelling Catheter - Exam Left lower extremity: Incisions are all intact on the left lower extremity, heaven are in good position and condition. There is mild serosanguineous drainage noted on the most proximal incision. There is a small tear in the skin noted on the medial thigh, likely from the operative drapes, there is a small small amount of play serosanguineous drainage noted, bandage was reapplied Skin is warm to touch Plantar flexion, dorsiflexion, EHL, FHL are intact Sensory exam light touch short extremities intact - Labs CBC & Chem 7: 12/17/17 13:18 12/17/17 10:39 Labs: Abnormal Lab Results - Last 24 Hours (Table) 12/14/17 12/16/17 12/17/17 Range/Units 10:47 19:52 10:39 WBC (3.8-10.6) k/uL RBC (3.80-5.40) m/uL Hgb (11.4-16.0) gm/dL Hct (34.0-46.0) % Neutrophils # (1.3-7.7) k/uL Monocytes # (0-1.0) k/uL APTT (22.0-30.0) sec Sodium 134 L (137-145) mmol/L Carbon Dioxide 15 L (22-30) mmol/L BUN 52 H (7-17) mg/dL Creatinine 1.82 H (0.52-1.04) mg/dL Glucose 116 H (74-99) mg/dL POC Glucose (mg/dL) 118 H (75-99) mg/dL AST 38 H (14-36) U/L Alkaline Phosphatase 128 H (38-126) U/L Albumin 2.8 L (3.5-5.0) g/dL Crossmatch See Detail 12/17/17 12/17/17 12/17/17 Range/Units 10:49 11:35 13:18 WBC 11.3 H (3.8-10.6) k/uL RBC 3.04 L 2.84 L (3.80-5.40) m/uL Hgb 9.4 L D 8.8 L (11.4-16.0) gm/dL Hct 27.7 L 26.6 L (34.0-46.0) % Neutrophils # 8.7 H 8.1 H (1.3-7.7) k/uL Monocytes # 1.1 H (0-1.0) k/uL APTT (22.0-30.0) sec Sodium (137-145) mmol/L Carbon Dioxide (22-30) mmol/L BUN (7-17) mg/dL Creatinine (0.52-1.04) mg/dL Glucose (74-99) mg/dL POC Glucose (mg/dL) 133 H (75-99) mg/dL AST (14-36) U/L Alkaline Phosphatase (38-126) U/L Albumin (3.5-5.0) g/dL Crossmatch 12/17/17 12/17/17 Range/Units 13:18 16:59 WBC (3.8-10.6) k/uL RBC (3.80-5.40) m/uL Hgb (11.4-16.0) gm/dL Hct (34.0-46.0) % Neutrophils # (1.3-7.7) k/uL Monocytes # (0-1.0) k/uL APTT 158.9 H* (22.0-30.0) sec Sodium (137-145) mmol/L Carbon Dioxide (22-30) mmol/L BUN (7-17) mg/dL Creatinine (0.52-1.04) mg/dL Glucose (74-99) mg/dL POC Glucose (mg/dL) 106 H (75-99) mg/dL AST (14-36) U/L Alkaline Phosphatase (38-126) U/L Albumin (3.5-5.0) g/dL Crossmatch Assessment and Plan Plan: Assessment: 1. Postop day #2 status post intramedullary nailing left subtrochanteric/ peritrochanteric femur fracture 2. Anemia Plan: Pain control, continue his current medication GI and DVT prophylaxis, patient remains on Plavix, heparin was also been started with regards to blood clot in the right upper extremity Weightbearing restrictions, recommend toe-touch weightbearing with transfers Other medical representative recommendations Daily dressing changes Hemoglobin remained stable Discharge planning: Plan to discharge to rehab in stable Time with Patient: Less than 30
--- NOTE | 2017-12-17 19:10 | P.PN ---
Subjective Progress Note Date: 12/17/17 Principal diagnosis: anemia and subsequent DVT of RUE Pt is not able to answer questions due to severe pain in her hip. Nursing is working with pt to control her symptoms. No reported evidence of bleeding. Objective - Vital Signs Vital signs: Vital Signs Temp 98.4 F 12/17/17 15:01 Pulse 68 12/17/17 15:01 Resp 16 12/17/17 15:01 BP 178/83 12/17/17 15:01 Pulse Ox 98 12/17/17 15:01 Intake & Output 12/16/17 12/17/17 12/17/17 18:59 06:59 18:59 Intake Total 1762 910 300 Output Total 725 1500 Balance 1762 185 -1200 Weight 77.111 kg Intake: IV 600 0.9 @ 75 600 Intake, IV Titration 562 Amount Sodium Chloride 0.9% 1, 450 000 ml @ 75 mls/hr IV . [id number] [facility] Rx#:[id number] Sodium Chloride 0.9% 500 12 ml @ 0 mls/hr IV .STK-MED ONE Rx#:[id number] Sodium Ferric Gluconat- 100 Sucrose 125 mg In Sodium Chloride 0.9% 100 ml @ 100 mls/hr IVPB DAILY [facility] Rx#:[id number] Oral 1200 300 Blood Product 310 Rc As-1 Unit 310 [id number] Output: Urine 725 1500 Uretheral (Oropeza) 1500 Other: Voiding Method Indwelling Catheter Indwelling Catheter Indwelling Catheter - Exam When seen this AM pt is in severe distress from hip pain, she was not able to to answer questions due to pain, RR was increased, she was very vocal. - Labs CBC & Chem 7: 12/17/17 13:18 12/17/17 10:39 Labs: Abnormal Lab Results - Last 24 Hours (Table) 12/14/17 12/16/17 12/17/17 Range/Units 10:47 19:52 10:39 WBC (3.8-10.6) k/uL RBC (3.80-5.40) m/uL Hgb (11.4-16.0) gm/dL Hct (34.0-46.0) % Neutrophils # (1.3-7.7) k/uL Monocytes # (0-1.0) k/uL APTT (22.0-30.0) sec Sodium 134 L (137-145) mmol/L Carbon Dioxide 15 L (22-30) mmol/L BUN 52 H (7-17) mg/dL Creatinine 1.82 H (0.52-1.04) mg/dL Glucose 116 H (74-99) mg/dL POC Glucose (mg/dL) 118 H (75-99) mg/dL AST 38 H (14-36) U/L Alkaline Phosphatase 128 H (38-126) U/L Albumin 2.8 L (3.5-5.0) g/dL Crossmatch See Detail 12/17/17 12/17/17 12/17/17 Range/Units 10:49 11:35 13:18 WBC 11.3 H (3.8-10.6) k/uL RBC 3.04 L 2.84 L (3.80-5.40) m/uL Hgb 9.4 L D 8.8 L (11.4-16.0) gm/dL Hct 27.7 L 26.6 L (34.0-46.0) % Neutrophils # 8.7 H 8.1 H (1.3-7.7) k/uL Monocytes # 1.1 H (0-1.0) k/uL APTT (22.0-30.0) sec Sodium (137-145) mmol/L Carbon Dioxide (22-30) mmol/L BUN (7-17) mg/dL Creatinine (0.52-1.04) mg/dL Glucose (74-99) mg/dL POC Glucose (mg/dL) 133 H (75-99) mg/dL AST (14-36) U/L Alkaline Phosphatase (38-126) U/L Albumin (3.5-5.0) g/dL Crossmatch 12/17/17 12/17/17 Range/Units 13:18 16:59 WBC (3.8-10.6) k/uL RBC (3.80-5.40) m/uL Hgb (11.4-16.0) gm/dL Hct (34.0-46.0) % Neutrophils # (1.3-7.7) k/uL Monocytes # (0-1.0) k/uL APTT 158.9 H* (22.0-30.0) sec Sodium (137-145) mmol/L Carbon Dioxide (22-30) mmol/L BUN (7-17) mg/dL Creatinine (0.52-1.04) mg/dL Glucose (74-99) mg/dL POC Glucose (mg/dL) 106 H (75-99) mg/dL AST (14-36) U/L Alkaline Phosphatase (38-126) U/L Albumin (3.5-5.0) g/dL Crossmatch Assessment and Plan (1) Iron deficiency anemia Narrative/Plan: Normocytic, normochromic. This is new for pt. Parenteral iron has been administered x 3 doses. GI work up is recommended but pt current condition is not amenable to endoscopic intervention (s/p orthopedic procedure for hip fracture, now DVT of RUE). As stated parenteral iron administered. Transfuse to keep Hgb> 7 unless symptomatic. Current Visit: Yes Status: Acute Priority: High Code(s): D50.9 - IRON DEFICIENCY ANEMIA, UNSPECIFIED SNOMED Code(s): 91200125 (2) DVT (deep venous thrombosis) Narrative/Plan: Pt has been started on heparin drip for RUE DVT, LLE doppler was incomplete due to pain. Would recommend BLE doppler evaluation once pt pain is better controlled. Cont heparin drip for now and monitor Hgb closely for signs of acute blood loss. Oral anticoagulation to be discussed once pt Hgb is felt to be stable. Current Visit: Yes Status: Acute Priority: High Code(s): I82.409 - ACUTE EMBOLISM AND THOMBOS UNSP DEEP VN UNSP LOWER EXTREMITY SNOMED Code(s): 925590133
[2017-12-17 20:19] LABS: Glucose,Whole Blood 114 mg/dL (75-99)
[2017-12-17 20:41] LABS: Basophils % (A) 0 %; Eosinophils # (A) 0.2 k/uL (0-0.7); Eosinophils % (A) 1 %; HCT 26.4 % (34.0-46.0); HGB 8.9 gm/dL (11.4-16.0); Lymphocytes # (A) 1.3 k/uL (1.0-4.8); Lymphocytes % (A) 12 %; MCHC 33.7 g/dL (31.0-37.0); MCV 91.9 fL (80.0-100.0); Mean Platelet Volume 8.1; Monocytes # (A) 0.9 k/uL (0-1.0); Monocytes % (A) 8 %; Neutrophils # (A) 8.5 k/uL (1.3-7.7); Neutrophils % (A) 77 %; Platelet Count 362 k/uL (150-450); RBC 2.87 m/uL (3.80-5.40); RDW 14.5 % (11.5-15.5); WBC 11.1 k/uL (3.8-10.6)
[2017-12-17] MEDS: FERROUS SULFATE 325 MG TAB PO SCH (22:18)
[2017-12-18 00:26] LABS: Basophils % (A) 0 %; Eosinophils # (A) 0.2 k/uL (0-0.7); Eosinophils % (A) 2 %; HCT 24.8 % (34.0-46.0); HGB 8.2 gm/dL (11.4-16.0); Lymphocytes # (A) 1.2 k/uL (1.0-4.8); Lymphocytes % (A) 12 %; MCH 30.9 pg (25.0-35.0); MCHC 33.2 g/dL (31.0-37.0); Mean Platelet Volume 6.6; Monocytes # (A) 0.7 k/uL (0-1.0); Monocytes % (A) 7 %; Neutrophils # (A) 7.6 k/uL (1.3-7.7); Neutrophils % (A) 77 %; Platelet Count 309 k/uL (150-450); RBC 2.66 m/uL (3.80-5.40); RDW 14.9 % (11.5-15.5); WBC 9.9 k/uL (3.8-10.6)
[2017-12-18] MEDS: hydrALAZINE HCL 50 MG TAB PO SCH ×3 (01:38→15:57)
[2017-12-18] MEDS: AMOXICILLIN 500 MG CAP PO SCH ×3 (01:38→15:57)
[2017-12-18] MEDS: SODIUM CHLORIDE 0.9% 1,000 ML IV SCH ×2 (02:48→18:29)
[2017-12-18] MEDS: HYDROmorphone 1 MG/ML 1 ML SYRINGE IVP PRN ×4 (04:15→22:33)
[2017-12-18 06:16] LABS: Basophils % (A) 0 %; Eosinophils # (A) 0.2 k/uL (0-0.7); Eosinophils % (A) 2 %; HCT 27.2 % (34.0-46.0); HGB 8.8 gm/dL (11.4-16.0); Lymphocytes # (A) 1.3 k/uL (1.0-4.8); Lymphocytes % (A) 12 %; MCH 29.9 pg (25.0-35.0); MCHC 32.4 g/dL (31.0-37.0); MCV 92.2 fL (80.0-100.0); Mean Platelet Volume 6.8; Monocytes % (A) 9 %; Neutrophils # (A) 8.5 k/uL (1.3-7.7); Neutrophils % (A) 75 %; Platelet Count 375 k/uL (150-450); RBC 2.95 m/uL (3.80-5.40); RDW 14.8 % (11.5-15.5); WBC 11.3 k/uL (3.8-10.6)
[2017-12-18] MEDS: MORPHINE SULFATE 4 MG/ML SYRINGE IV PRN ×2 (06:35→10:11)
[2017-12-18] MEDS: FAMOTIDINE 20 MG TAB PO SCH (06:51)
[2017-12-18] MEDS: FUROSEMIDE 40 MG TAB PO SCH (06:51)
[2017-12-18] MEDS: SODIUM BICARBONATE TAB 650 MG TAB PO SCH ×2 (06:51→22:33)
[2017-12-18] MEDS: LEVOTHYROXINE 75 MCG TAB PO SCH (06:51)
[2017-12-18] MEDS: OXYBUTYNIN XL 5 MG TAB.ER.24 PO SCH (06:52)
[2017-12-18] MEDS: ATENOLOL 25 MG TAB PO SCH (06:52)
[2017-12-18] MEDS: CLOPIDOGREL 75 MG TAB PO SCH (06:52)
[2017-12-18] MEDS: FERROUS SULFATE 325 MG TAB PO SCH ×2 (06:52→22:33)
[2017-12-18 06:53] LABS: Albumin 2.7 g/dL (3.5-5.0); Calcium 8.4 mg/dL (8.4-10.2); Potassium 4.3 mmol/L (3.5-5.1); Total Bilirubin 0.7 mg/dL (0.2-1.3); Total Protein 6.2 g/dL (6.3-8.2)
[2017-12-18] MEDS: HYDROcodone/APAP 7.5-325MG 1 EACH TAB PO PRN (06:53)
[2017-12-18 07:53] LABS: Glucose,Whole Blood 96 mg/dL (75-99)
[2017-12-18] MEDS: INSULIN ASPART 100 UNIT/ML 1 ML 10 ML VIAL SQ SCH ×4 (08:03→20:51)
[2017-12-18] MEDS: HEPARIN SOD,PORK IN 0.45% NACL 25,000 UNIT in 0.45% NACL 1 500ML.BAG IV SCH ×2 (08:16→12:37)
[2017-12-18] MEDS: HYDROcodone/APAP 10-325MG 1 EACH TAB PO PRN ×2 (11:34→17:27)
--- NOTE | 2017-12-18 12:01 | CT ---
EXAMINATION TYPE: CT chest wo con DATE OF EXAM: 12/18/2017 COMPARISON: None HISTORY: History of DVT's LUE, Breast cancer CT DLP: 330.9 mGycm. Automated Exposure Control for Dose Reduction was Utilized. TECHNIQUE: CT scan of the thorax is performed without IV contrast. FINDINGS: Lack of contrast could compromise sensitivity. Suspect left atrial enlargement, possible pu lmonary artery enlargement LUNGS: The lungs are grossly clear, there is no concerning parenchymal mass or nodule identified. T here is no pleural effusion or pneumothorax seen. The tracheobronchial tree is patent. MEDIASTINUM: Lack of IV contrast is noted to limit evaluation for mediastinal and especially hilar ad enopathy. There are no definitive greater than 1 cm hilar or mediastinal lymph nodes. Stent device pr esent at the level of the proximal aorta, coronary artery calcifications, mitral annular calcificatio n is noted. No cardiomegaly or pericardial effusion is seen. OTHER: Arthropathy noted within the shoulders. Degenerative disc changes in the visualized spine, art hropathy of the sternoclavicular joints. There is a spinal curvature. Gallbladder is not seen. IMPRESSION: Postprocedural changes within the heart, correlate for pulmonary artery hypertension. Non contrast exam. There are arthropathy changes.
[2017-12-18] MEDS ORDERED: HEPARIN SODIUM,PORCINE 5,000 UNIT/ML 1 ML VIAL IV STA (12:12)
[2017-12-18 12:23] LABS: Glucose,Whole Blood 107 mg/dL (75-99)
[2017-12-18 13:50] LABS: CA27.29 Breast Ca Marker 17.4 U/mL (0.0-38.5)
--- NOTE | 2017-12-18 14:01 | P.PN ---
Subjective Progress Note Date: 12/18/17 This is a 87-year-old female, patient of Dr. Salgado. She has a known past medical history of coronary artery disease with stenting to the left circumflex in 2016 with an EF between 15-20% with severe cardiomyopathy, severe aortic stenosis status post TAVR October 2016, hypertension, chronic kidney disease, diet controlled diabetes mellitus, breast cancer status post mastectomy. She also has a history of hypothyroidism. Patient lives in assisted living home. Apparently she got up in the middle the night to walk to the bathroom and tripped and fell. She had significant pain and likely left hip and was brought into the emergency room for further evaluation and treatment. X-ray of the hip shows an acute comminuted displaced and trochanteric fracture of the left femur. She was admitted to orthopedic service. We have been consulted for medical management. Initially consult was placed for Dr. Codne who covers for Dr. Zhao. But there with clarification of patient's PCP which is Dr. Ledesma. Therefore consult was switched over today to us. During patient's fall she denies any loss of consciousness dizziness or lightheadedness. Denies any chest pain or shortness of breath. Denies any nausea or vomiting bowel movement changes or urinary symptoms. Apparently patient has been on Augmentin it is listed as one of her home medications for possibly a UTI. Urinalysis during this admission does show evidence of infection. Urine culture will be obtained. Patient is currently on Plavix and aspirin for her coronary artery disease and cardiac stents. I seen by cardiology these medications have been placed on hold. And they're anticipating surgery to be completed on Sunday. Patient currently lying in bed comfortably. No evidence of distress. 12/14/2017 patient is lying in bed comfortably. Pain is controlled. Hemoglobin has dropped to 7.3. She is receiving 1 unit of blood per orthopedic. She did have evidence of low iron of 19. Discuss with orthopedics. They're planning to proceed with surgery tomorrow. Also discussed with cardiology. Cardiology is recommending that patient be off of Plavix for 5 days due to increased risk of bleeding. Patient denies any chest pain or shortness of breath. Denies any nausea or vomiting. Denies any bowel movement changes or urinary symptoms. On 12/15/2017 patient was seen and examined she is laying in bed she is complaining of pain in her hip otherwise she denies any complaints no fever or chills no headache or dizziness no chest pain no shortness of breath no cough no nausea or vomiting no abdominal pain no diarrhea and no urinary symptoms On 12/16/2017 patient was seen and examined she is alert and oriented 3 she is complaining of pain and swelling in her right upper extremity extending from the hand to right below the shoulder IV is in the right forearm at this time patient is also having pain in the hip otherwise she denies any complaints there is no fever or chills no headache or dizziness no chest pain no shortness of breath no cough no nausea or vomiting no abdominal pain and no urinary symptoms 12/17/2017 patient has had increased swelling in the right upper arm which was positive for a DVT. Left leg also having increased swelling and pain. Patient not able to complete full ultrasound of the leg. What was evaluated was negative for DVT. Patient is having a lot of pain in the left leg groin area. Nurses have having difficulty getting IV access. Patient is not a candidate for a midline. Patient has had a history of a left mastectomy and the right arm has the blood clot. Discussed with [facility] care service they will be placing a central line in the right groin. Patient did receive a unit of blood yesterday. Hemoglobin has gone up from 7.3-9.4. White count has also increased 11.3. She is having blood drainage at the right medial thigh from a small laceration. Otherwise no signs of cellulitis. Urine culture growing Enterococcus faecalis 12/18/2017 patient is still complaining of pain in the left leg and right arm. She was scheduled for computed tomography scan of the chest for further evaluation of right upper extremity blood clot. White count remains at 11.3. Hemoglobin has dropped to 8.8 from 9.4. Creatinine has gone up from 1.82-1.93. Patient did receive a dose of IV Lasix yesterday. She remains on the IV heparin drip. Patient seen by Dr. Leo and was not a candidate for TPA due to recent surgery. Patient denies any chest pain or shortness of breath. Denies any nausea or vomiting. No bowel movement yesterday reported. Stool softener will be added. Denies any burning with urination. Objective - Vital Signs Vital signs: Vital Signs Temp 98.2 F 12/18/17 06:59 Pulse 77 12/18/17 06:59 Resp 19 12/18/17 07:10 BP 149/81 12/18/17 06:59 Pulse Ox 95 12/18/17 00:00 Intake & Output 12/17/17 12/18/17 12/18/17 18:59 06:59 18:59 Intake Total 300 1002.866 196.486 Output Total 1500 450 Balance -1200 552.866 196.486 Intake: Intake, IV Titration 1002.866 76.486 Amount Heparin Sod,Pork in 0.45% 402.866 76.486 NaCl 25,000 unit In 0.45 % NaCl 1 500ml.bag @ 18 UNITS/KG/HR 27.75 mls/hr IV .Q18H2M [facility] Rx#: [id number] Sodium Chloride 0.9% 1, 600 000 ml @ 75 mls/hr IV . [id number] [facility] Rx#:[id number] Oral 300 120 Output: Urine 1500 450 Uretheral (Oropeza) 1500 Other: Voiding Method Indwelling Catheter Indwelling Catheter Indwelling Catheter - Exam Head normocephalic Neck supple Lungs clear to auscultation bilaterally no wheezing or crackles Heart regular rate and rhythm S1-S2, no rub or gallop Abdomen is soft nontender nondistended positive bowel sounds no hepatosplenomegaly Extremities left leg is swollen and calf tenderness. Dressing clean dry and intact Neuro alert and orientated to 2. Her name and place - Labs CBC & Chem 7: 12/18/17 06:05 12/18/17 06:15 Labs: Abnormal Lab Results - Last 24 Hours (Table) 12/14/17 12/17/17 12/17/17 Range/Units 10:47 13:18 13:18 WBC (3.8-10.6) k/uL RBC 2.84 L (3.80-5.40) m/uL Hgb 8.8 L (11.4-16.0) gm/dL Hct 26.6 L (34.0-46.0) % Neutrophils # 8.1 H (1.3-7.7) k/uL APTT 158.9 H* (22.0-30.0) sec Sodium (137-145) mmol/L Carbon Dioxide (22-30) mmol/L BUN (7-17) mg/dL Creatinine (0.52-1.04) mg/dL POC Glucose (mg/dL) (75-99) mg/dL AST (14-36) U/L Total Protein (6.3-8.2) g/dL Albumin (3.5-5.0) g/dL Crossmatch See Detail 12/17/17 12/17/17 12/17/17 Range/Units 16:59 20:15 20:30 WBC 11.1 H (3.8-10.6) k/uL RBC 2.87 L (3.80-5.40) m/uL Hgb 8.9 L (11.4-16.0) gm/dL Hct 26.4 L (34.0-46.0) % Neutrophils # 8.5 H (1.3-7.7) k/uL APTT (22.0-30.0) sec Sodium (137-145) mmol/L Carbon Dioxide (22-30) mmol/L BUN (7-17) mg/dL Creatinine (0.52-1.04) mg/dL POC Glucose (mg/dL) 106 H 114 H (75-99) mg/dL AST (14-36) U/L Total Protein (6.3-8.2) g/dL Albumin (3.5-5.0) g/dL Crossmatch 12/17/17 12/18/17 12/18/17 Range/Units 20:30 00:00 03:30 WBC (3.8-10.6) k/uL RBC 2.66 L (3.80-5.40) m/uL Hgb 8.2 L (11.4-16.0) gm/dL Hct 24.8 L (34.0-46.0) % Neutrophils # (1.3-7.7) k/uL APTT >200.0 H* 78.2 H (22.0-30.0) sec Sodium (137-145) mmol/L Carbon Dioxide (22-30) mmol/L BUN (7-17) mg/dL Creatinine (0.52-1.04) mg/dL POC Glucose (mg/dL) (75-99) mg/dL AST (14-36) U/L Total Protein (6.3-8.2) g/dL Albumin (3.5-5.0) g/dL Crossmatch 12/18/17 12/18/17 12/18/17 Range/Units 06:05 06:15 11:15 WBC 11.3 H (3.8-10.6) k/uL RBC 2.95 L (3.80-5.40) m/uL Hgb 8.8 L (11.4-16.0) gm/dL Hct 27.2 L (34.0-46.0) % Neutrophils # 8.5 H (1.3-7.7) k/uL APTT 37.9 H (22.0-30.0) sec Sodium 134 L (137-145) mmol/L Carbon Dioxide 17 L (22-30) mmol/L BUN 55 H (7-17) mg/dL Creatinine 1.93 H (0.52-1.04) mg/dL POC Glucose (mg/dL) (75-99) mg/dL AST 39 H (14-36) U/L Total Protein 6.2 L (6.3-8.2) g/dL Albumin 2.7 L (3.5-5.0) g/dL Crossmatch 12/18/17 Range/Units 12:12 WBC (3.8-10.6) k/uL RBC (3.80-5.40) m/uL Hgb (11.4-16.0) gm/dL Hct (34.0-46.0) % Neutrophils # (1.3-7.7) k/uL APTT (22.0-30.0) sec Sodium (137-145) mmol/L Carbon Dioxide (22-30) mmol/L BUN (7-17) mg/dL Creatinine (0.52-1.04) mg/dL POC Glucose (mg/dL) 107 H (75-99) mg/dL AST (14-36) U/L Total Protein (6.3-8.2) g/dL Albumin (3.5-5.0) g/dL Crossmatch Assessment and Plan Assessment: 1. Mechanical fall with intertrochanteric fracture of the left femur. Status post trochanteric intramedullary nailing 2. Coronary artery disease status post stenting in July 2016. Plavix restarted 3. Hypothyroidism continue Synthroid 75 g daily 4. 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 TAVR completed October 2016 6. Essential hypertension : Continue hydralazine and atenolol 7. History of ischemic cardiomyopathy with improvement of repeat echo showing an EF of 55-60% after the TAVR 8. Chronic systolic heart failure with improvement on repeat echo. Cardiology following. No evidence of exacerbation. Continue her oral Lasix 9. Acute on Chronic kidney disease stage IV. Continue with IV fluid hydration. Monitor closely while on Lasix. Creatinine 1.93 likely increased from the dose of IV Lasix . We'll monitor 10. UTI: Urine culture growing enterococcus faecalis. Continue amoxicillin 11. Diet controlled diabetes mellitus per patient. A1c 5.1. Continue sliding scale during hospitalization 12. Anemia with evidence of iron deficiency anemia. Possible acute blood loss anemia at fracture site. Hemoglobin has dropped to 7.3. continue ferrous sulfate 325 mg twice a day. Low iron levels. Patient has received blood transfusion during this admission. Patient did have a low hemoglobin in November 2017 of 9.8. Stool for occult blood uncollected. Patient did receive IV iron during this admission. Hemoglobin trending down to 8.8. Hematology following they are recommending GI workup when current condition has improved. 13. Right arm DVT: Continue IV heparin. Concerns also for possible left leg DVT. Patient unable to tolerate the venous Doppler of the lower extremity. Patient seen by Dr. Leo not a candidate for TPA. Also recommending repeating the lower extremity Doppler when pain is controlled. CT chest ordered by hematology for further evaluation of the cause of the right arm DVT 14. Leukocytosis: Consult infectious disease for further evaluation. White count 11.3 patient is being treated for UTI and on amoxicillin 15. Pain control: Increased [place] to 10 mg every 6 hours. Discontinue IV morphine. Increase Dilaudid 1 mg every 4 hours as needed 16. Constipation add stool softener GI prophylaxis Pepcid and DVT prophylaxis SCDs I performed an examination of the patient and discussed their management with the physician Hot Dimpling Machine Operator. I have reviewed the Physician Hot Dimpling Machine Operator's notes and agree with the documented findings and plan of care
--- NOTE | 2017-12-18 14:10 | P.PN ---
Subjective Progress Note Date: 12/18/17 Principal diagnosis: anemia and subsequent DVT of SKYE Hx of breast cancer Pt seen in f/u, [id number] at bedside. Pt is smiling today, she states better control of her hip pain, she ate lunch, no nausea, JOSHUA, need to go to the bathroom, bleeding, or other pain, she is weak. Objective - Vital Signs Vital signs: Vital Signs Temp 98.2 F 12/18/17 06:59 Pulse 77 12/18/17 06:59 Resp 19 12/18/17 07:10 BP 149/81 12/18/17 06:59 Pulse Ox 95 12/18/17 00:00 Intake & Output 12/17/17 12/18/17 12/18/17 18:59 06:59 18:59 Intake Total 300 1002.866 283.660 Output Total 1500 450 Balance -1200 552.866 283.660 Intake: Intake, IV Titration 1002.866 163.660 Amount Heparin Sod,Pork in 0.45% 402.866 163.660 NaCl 25,000 unit In 0.45 % NaCl 1 500ml.bag @ 18 UNITS/KG/HR 27.75 mls/hr IV .Q18H2M [facility] Rx#: [id number] Sodium Chloride 0.9% 1, 600 000 ml @ 75 mls/hr IV . [id number] [facility] Rx#:[id number] Oral 300 120 Output: Urine 1500 450 Uretheral (Oropeza) 1500 Other: Voiding Method Indwelling Catheter Indwelling Catheter Indwelling Catheter - Constitutional General appearance: Present: average body habitus, cooperative, no acute distress - EENT EENT Comment(s): Oral mucosa is dry with black residue on mucosal surface, lips and tongue Eyes: Present: anicteric sclerae ENT: Present: hearing grossly normal - Respiratory Respiratory: bilateral: diminished (weak inspiratory effort) - Cardiovascular Heart sounds: normal: S1, S2 - Gastrointestinal General gastrointestinal: Present: normal bowel sounds, soft - Musculoskeletal Musculoskeletal: Present: generalized weakness - Psychiatric Psychiatric Comment(s): A & O to self, place, pleasant, smiling - Labs CBC & Chem 7: 12/18/17 06:05 12/18/17 06:15 Labs: Abnormal Lab Results - Last 24 Hours (Table) 12/14/17 12/17/17 12/17/17 Range/Units 10:47 13:18 13:18 WBC (3.8-10.6) k/uL RBC 2.84 L (3.80-5.40) m/uL Hgb 8.8 L (11.4-16.0) gm/dL Hct 26.6 L (34.0-46.0) % Neutrophils # 8.1 H (1.3-7.7) k/uL APTT 158.9 H* (22.0-30.0) sec Sodium (137-145) mmol/L Carbon Dioxide (22-30) mmol/L BUN (7-17) mg/dL Creatinine (0.52-1.04) mg/dL POC Glucose (mg/dL) (75-99) mg/dL AST (14-36) U/L Total Protein (6.3-8.2) g/dL Albumin (3.5-5.0) g/dL Crossmatch See Detail 12/17/17 12/17/17 12/17/17 Range/Units 16:59 20:15 20:30 WBC 11.1 H (3.8-10.6) k/uL RBC 2.87 L (3.80-5.40) m/uL Hgb 8.9 L (11.4-16.0) gm/dL Hct 26.4 L (34.0-46.0) % Neutrophils # 8.5 H (1.3-7.7) k/uL APTT (22.0-30.0) sec Sodium (137-145) mmol/L Carbon Dioxide (22-30) mmol/L BUN (7-17) mg/dL Creatinine (0.52-1.04) mg/dL POC Glucose (mg/dL) 106 H 114 H (75-99) mg/dL AST (14-36) U/L Total Protein (6.3-8.2) g/dL Albumin (3.5-5.0) g/dL Crossmatch 12/17/17 12/18/17 12/18/17 Range/Units 20:30 00:00 03:30 WBC (3.8-10.6) k/uL RBC 2.66 L (3.80-5.40) m/uL Hgb 8.2 L (11.4-16.0) gm/dL Hct 24.8 L (34.0-46.0) % Neutrophils # (1.3-7.7) k/uL APTT >200.0 H* 78.2 H (22.0-30.0) sec Sodium (137-145) mmol/L Carbon Dioxide (22-30) mmol/L BUN (7-17) mg/dL Creatinine (0.52-1.04) mg/dL POC Glucose (mg/dL) (75-99) mg/dL AST (14-36) U/L Total Protein (6.3-8.2) g/dL Albumin (3.5-5.0) g/dL Crossmatch 12/18/17 12/18/17 12/18/17 Range/Units 06:05 06:15 11:15 WBC 11.3 H (3.8-10.6) k/uL RBC 2.95 L (3.80-5.40) m/uL Hgb 8.8 L (11.4-16.0) gm/dL Hct 27.2 L (34.0-46.0) % Neutrophils # 8.5 H (1.3-7.7) k/uL APTT 37.9 H (22.0-30.0) sec Sodium 134 L (137-145) mmol/L Carbon Dioxide 17 L (22-30) mmol/L BUN 55 H (7-17) mg/dL Creatinine 1.93 H (0.52-1.04) mg/dL POC Glucose (mg/dL) (75-99) mg/dL AST 39 H (14-36) U/L Total Protein 6.2 L (6.3-8.2) g/dL Albumin 2.7 L (3.5-5.0) g/dL Crossmatch 12/18/17 Range/Units 12:12 WBC (3.8-10.6) k/uL RBC (3.80-5.40) m/uL Hgb (11.4-16.0) gm/dL Hct (34.0-46.0) % Neutrophils # (1.3-7.7) k/uL APTT (22.0-30.0) sec Sodium (137-145) mmol/L Carbon Dioxide (22-30) mmol/L BUN (7-17) mg/dL Creatinine (0.52-1.04) mg/dL POC Glucose (mg/dL) 107 H (75-99) mg/dL AST (14-36) U/L Total Protein (6.3-8.2) g/dL Albumin (3.5-5.0) g/dL Crossmatch - Imaging and Cardiology CT scan - chest: report reviewed Assessment and Plan (1) Iron deficiency anemia Narrative/Plan: Normocytic, normochromic. This is new for pt. Parenteral iron has been administered x 3 doses. GI work up is recommended but pt current condition is not amenable to endoscopic intervention. HAVE SPOKEN WITH SON ILYA who is next of kin and family does NOT want endoscopy at this time and agree with holding off on any other procedures right now. Hgb stable. Transfuse to keep Hgb> 7 unless symptomatic. Current Visit: Yes Status: Acute Priority: High Code(s): D50.9 - IRON DEFICIENCY ANEMIA, UNSPECIFIED SNOMED Code(s): 75676186 (2) DVT (deep venous thrombosis) Narrative/Plan: Pt has been started on heparin drip for RUE DVT, LLE doppler was incomplete due to pain. Would recommend BLE doppler evaluation once pt pain is better controlled. Cont heparin drip for now and monitor Hgb closely for signs of acute blood loss. Oral anticoagulation to be discussed once pt Hgb is felt to be stable. CT chest was ordered to evaluate the upper chest as there was not a grossly notable provoking factor for pt upper extremity DVT. No evidence of extrinsic compression in the area or mass. Did call pt son to update him Plan is for anticoagulation for 3-6 months. Hopefully we can do doppler of both legs in the near future for baseline. Current Visit: Yes Status: Acute Priority: High Code(s): I82.409 - ACUTE EMBOLISM AND THOMBOS UNSP DEEP VN UNSP LOWER EXTREMITY SNOMED Code(s): 957052628 (3) History of breast cancer Narrative/Plan: Tumor markers evaluated, so far WNL. Current Visit: No Status: Chronic Priority: Medium Code(s): Z85.3 - PERSONAL HISTORY OF MALIGNANT NEOPLASM OF BREAST SNOMED Code(s): 897430112
[2017-12-18] MEDS: ALPRAZolam 0.25 MG TAB PO PRN (16:18)
[2017-12-18 18:22] LABS: Glucose,Whole Blood 116 mg/dL (75-99)
[2017-12-18 19:48] LABS: Glucose,Whole Blood 117 mg/dL (75-99)
[2017-12-18] MEDS: DOCUSATE 100 MG CAP PO SCH (22:33)
[2017-12-19] MEDS: AMOXICILLIN 500 MG CAP PO SCH ×3 (02:05→16:33)
[2017-12-19] MEDS: hydrALAZINE HCL 50 MG TAB PO SCH ×4 (02:05→21:58)
[2017-12-19] MEDS: HYDROmorphone 1 MG/ML 1 ML SYRINGE IVP PRN ×2 (06:01→13:43)
[2017-12-19] MEDS: LEVOTHYROXINE 75 MCG TAB PO SCH (06:06)
[2017-12-19] MEDS: SODIUM CHLORIDE 0.9% 1,000 ML IV SCH ×2 (06:20→17:33)
--- NOTE | 2017-12-19 06:26 | CONS ---
CONSULTATION DATE OF SERVICE: 12/18/2017 REASON FOR CONSULTATION: Leukocytosis. HISTORY OF PRESENT ILLNESS: The patient is an 87-year-old, female, who was brought into the ER at [facility] on 12/13/2017 after the patient did have a fall where the patient tried to get up in the middle of the night to walk to the bathroom. The patient did have significant pain in her left hip area and has been diagnosed with comminuted displaced left femur intertrochanteric fracture. The patient subsequently has been admitted to the hospital and is status post intramedullary nailing of the same. During this hospital stay, the patient also noticed to have slightly elevated white count. She did have a positive UA. Urine culture has been finalized as Enterococcus faecalis and the patient currently on oral amoxicillin. The patient did have a recently mildly elevated white count of 11.3, for which I was asked to see the patient today for further recommendation regarding antibiotic therapy. Patient is currently afebrile. The patient is pleasantly confused and unable to reliable history when asked specifically regarding any headache, chest pain, shortness of breath, cough or any abdominal pain, she has been denying. Per the RN, there is no diarrhea that the patient is constipated and had not any bowel movement for the last 3 to 4 days. No nausea or vomiting has been noticed. History remains to be limited because of underlying mental status. REVIEW OF SYSTEMS: Could not be reliably obtained. The positive points have been mentioned in HPI. PAST MEDICAL HISTORY: Significant for coronary artery disease, diabetes mellitus, gastroesophageal reflux disease, hypertension, hyperlipidemia, osteoarthritis, syncope, hypothyroidism, aortic valve disease, chronic UTIs, left breast cancer. PAST SURGICAL HISTORY: Left mastectomy, cholecystectomy, hysterectomy, tonsillectomy, left knee replacement and colonoscopy. SOCIAL HISTORY: No history of smoking, drinking or drug use. FAMILY HISTORY: Mother history of [place], at age of 70. ALLERGIES: No known drug allergies. MEDICATIONS: Medications currently include the patient is on [place], Xanax, amoxicillin 500 mg 3 times a day, Tenormin, Plavix, Colace, Pepcid, iron sulfate, Lasix, hydralazine, Dilaudid, Synthroid, Ditropan. PHYSICAL EXAMINATION: On examination, blood pressure is 195/69 with a pulse of 70, temperature of 98.8. She is 95% on room air. General description is an elderly female lying in bed in no distress. No tachypnea or accessory muscle of respiration use. HEENT examination shows slight pallor. No scleral icterus. Oral mucous membrane is dry. No pharyngeal erythema or thrush. NECK: Trachea central, no thyromegaly. LUNGS: Unlabored breathing, decreased breath sounds in the bases. No wheeze. HEART: S1, S2. Regular rate and rhythm. ABDOMEN: Soft, no tenderness. No guarding or rigidity. EXTREMITIES: No edema of the feet. SKIN EXAMINATION: No rash or mass palpable. NEUROLOGICAL: Patient is awake, alert, oriented x1. Mood and affect normal. LABS: Hemoglobin 8.8, white count 11.3. BUN of 55, creatinine is 1.93. has been normal. Urine was positive for small leukocyte esterase, 13 WBCs. Cultures positive for Enterococcus faecalis. DIAGNOSTIC IMPRESSION AND PLAN: Patient with mild leukocytosis which is likely multifactorial. The patient has been admitted to the hospital after patient did have a fall with left femoral intertrochanteric fracture, status post operative repair of the same. Did have positive UA. Source of this elevated white count could be related to her recent surgery plus-minus urinary tract infection. The patient currently has no other clinical focus of infection. The patient does not look septic. Did not have any fever. PLAN: 1. We will keep the patient on amoxicillin 500 mg to finish a 5 to 7 day course of therapy. 2. We will monitor clinical course closely. If the patient spikes any fever or any further jump in white count, the patient will be recultured and antibiotic will be adjusted further. Thank you for this consultation. Will follow this patient along with you. MMODL / IJN: [id number] /
[2017-12-19 07:24] LABS: Glucose,Whole Blood 101 mg/dL (75-99)
[2017-12-19] MEDS: INSULIN ASPART 100 UNIT/ML 1 ML 10 ML VIAL SQ SCH ×4 (07:48→20:53)
[2017-12-19] MEDS: SODIUM BICARBONATE TAB 650 MG TAB PO SCH ×2 (08:16→20:50)
[2017-12-19] MEDS: CLOPIDOGREL 75 MG TAB PO SCH (08:16)
[2017-12-19] MEDS: ATENOLOL 25 MG TAB PO SCH (08:16)
[2017-12-19] MEDS: OXYBUTYNIN XL 5 MG TAB.ER.24 PO SCH (08:16)
[2017-12-19] MEDS: FUROSEMIDE 40 MG TAB PO SCH (08:17)
[2017-12-19] MEDS: DOCUSATE 100 MG CAP PO SCH ×2 (08:17→20:50)
[2017-12-19] MEDS: FAMOTIDINE 20 MG TAB PO SCH (08:17)
[2017-12-19] MEDS: FERROUS SULFATE 325 MG TAB PO SCH ×2 (08:19→20:50)
[2017-12-19 10:06] LABS: Basophils % (A) 0 %; Eosinophils # (A) 0.2 k/uL (0-0.7); Eosinophils % (A) 2 %; HCT 27.2 % (34.0-46.0); HGB 8.5 gm/dL (11.4-16.0); Hypochromasia Slight; Lymphocytes # (A) 0.9 k/uL (1.0-4.8); Lymphocytes % (A) 9 %; MCH 30.3 pg (25.0-35.0); MCHC 31.2 g/dL (31.0-37.0); MCV 97.1 fL (80.0-100.0); Mean Platelet Volume 7.6; Monocytes # (A) 0.8 k/uL (0-1.0); Monocytes % (A) 8 %; Neutrophils # (A) 7.7 k/uL (1.3-7.7); Neutrophils % (A) 79 %; Platelet Count 384 k/uL (150-450); RDW 15.3 % (11.5-15.5); WBC 9.7 k/uL (3.8-10.6)
[2017-12-19 10:33] LABS: Albumin 2.6 g/dL (3.5-5.0); Calcium 8.3 mg/dL (8.4-10.2); Potassium 4.5 mmol/L (3.5-5.1); Total Bilirubin 0.8 mg/dL (0.2-1.3)
[2017-12-19 11:41] LABS: Glucose,Whole Blood 109 mg/dL (75-99)
[2017-12-19] MEDS: HYDROcodone/APAP 10-325MG 1 EACH TAB PO PRN ×2 (11:59→22:26)
--- NOTE | 2017-12-19 14:20 | P.PN ---
Subjective Progress Note Date: 12/19/17 This is a 87-year-old female, patient of Dr. Salgado. She has a known past medical history of coronary artery disease with stenting to the left circumflex in 2016 with an EF between 15-20% with severe cardiomyopathy, severe aortic stenosis status post TAVR October 2016, hypertension, chronic kidney disease, diet controlled diabetes mellitus, breast cancer status post mastectomy. She also has a history of hypothyroidism. Patient lives in assisted living home. Apparently she got up in the middle the night to walk to the bathroom and tripped and fell. She had significant pain and likely left hip and was brought into the emergency room for further evaluation and treatment. X-ray of the hip shows an acute comminuted displaced and trochanteric fracture of the left femur. She was admitted to orthopedic service. We have been consulted for medical management. Initially consult was placed for Dr. Conde who covers for Dr. Zhao. But there with clarification of patient's PCP which is Dr. Ledesma. Therefore consult was switched over today to us. During patient's fall she denies any loss of consciousness dizziness or lightheadedness. Denies any chest pain or shortness of breath. Denies any nausea or vomiting bowel movement changes or urinary symptoms. Apparently patient has been on Augmentin it is listed as one of her home medications for possibly a UTI. Urinalysis during this admission does show evidence of infection. Urine culture will be obtained. Patient is currently on Plavix and aspirin for her coronary artery disease and cardiac stents. I seen by cardiology these medications have been placed on hold. And they're anticipating surgery to be completed on Sunday. Patient currently lying in bed comfortably. No evidence of distress. 12/14/2017 patient is lying in bed comfortably. Pain is controlled. Hemoglobin has dropped to 7.3. She is receiving 1 unit of blood per orthopedic. She did have evidence of low iron of 19. Discuss with orthopedics. They're planning to proceed with surgery tomorrow. Also discussed with cardiology. Cardiology is recommending that patient be off of Plavix for 5 days due to increased risk of bleeding. Patient denies any chest pain or shortness of breath. Denies any nausea or vomiting. Denies any bowel movement changes or urinary symptoms. On 12/15/2017 patient was seen and examined she is laying in bed she is complaining of pain in her hip otherwise she denies any complaints no fever or chills no headache or dizziness no chest pain no shortness of breath no cough no nausea or vomiting no abdominal pain no diarrhea and no urinary symptoms On 12/16/2017 patient was seen and examined she is alert and oriented 3 she is complaining of pain and swelling in her right upper extremity extending from the hand to right below the shoulder IV is in the right forearm at this time patient is also having pain in the hip otherwise she denies any complaints there is no fever or chills no headache or dizziness no chest pain no shortness of breath no cough no nausea or vomiting no abdominal pain and no urinary symptoms 12/17/2017 patient has had increased swelling in the right upper arm which was positive for a DVT. Left leg also having increased swelling and pain. Patient not able to complete full ultrasound of the leg. What was evaluated was negative for DVT. Patient is having a lot of pain in the left leg groin area. Nurses have having difficulty getting IV access. Patient is not a candidate for a midline. Patient has had a history of a left mastectomy and the right arm has the blood clot. [facility] they will be placing a central line in the right groin. Patient did receive a unit of blood yesterday. Hemoglobin has gone up from 7.3-9.4. White count has also increased 11.3. She is having blood drainage at the right medial thigh from a small laceration. Otherwise no signs of cellulitis. Urine culture growing Enterococcus faecalis 12/18/2017 patient is still complaining of pain in the left leg and right arm. She was scheduled for computed tomography scan of the chest for further evaluation of right upper extremity blood clot. White count remains at 11.3. Hemoglobin has dropped to 8.8 from 9.4. Creatinine has gone up from 1.82-1.93. Patient did receive a dose of IV Lasix yesterday. She remains on the IV heparin drip. Patient seen by Dr. Leo and was not a candidate for TPA due to recent surgery. Patient denies any chest pain or shortness of breath. Denies any nausea or vomiting. No bowel movement yesterday reported. Stool softener will be added. Denies any burning with urination. On 12/19/2017 patient is awake and alert. Patient is still complaining of pain to left leg. Patient seen with an 8.5. Patient remains on heparin drip at this time patient denies chest pain or shortness breath. Patient denies any nausea vomiting. Denies any burning with urination Objective - Vital Signs Vital signs: Vital Signs Temp 96.9 F L 12/19/17 07:00 Pulse 78 12/19/17 07:00 Resp 16 12/19/17 07:00 BP 180/90 12/19/17 07:00 Pulse Ox 99 12/19/17 07:00 Intake & Output 12/18/17 12/19/17 12/19/17 18:59 06:59 18:59 Intake Total 840.980 1194.233 600 Output Total 1250 500 Balance -966.340 916.233 600 Weight 77.111 kg Intake: IV 1200 0.9 @ 75 1200 Intake, IV Titration 163.660 216.233 600 Amount Heparin Sod,Pork in 0.45% 163.660 216.233 NaCl 25,000 unit In 0.45 % NaCl 1 500ml.bag @ 18 UNITS/KG/HR 27.75 mls/hr IV .Q18H2M [facility] Rx#: [id number] Sodium Chloride 0.9% 1, 600 000 ml @ 75 mls/hr IV . [id number] [facility] Rx#:[id number] Oral 120 Output: Urine 1250 500 Other: Voiding Method Indwelling Catheter Indwelling Catheter Indwelling Catheter - Exam Head normocephalic Neck supple Lungs clear to auscultation bilaterally no wheezing or crackles Heart regular rate and rhythm S1-S2, no rub or gallop Abdomen is soft nontender nondistended positive bowel sounds no hepatosplenomegaly Extremities left leg is swollen and calf tenderness. Dressing clean dry and intact Neuro alert and orientated to 2. Her name and place - Labs CBC & Chem 7: 12/19/17 09:23 12/19/17 09:23 Labs: Abnormal Lab Results - Last 24 Hours (Table) 12/18/17 12/18/17 12/18/17 Range/Units 18:08 18:37 19:45 RBC (3.80-5.40) m/uL Hgb (11.4-16.0) gm/dL Hct (34.0-46.0) % Lymphocytes # (1.0-4.8) k/uL APTT 188.1 H* (22.0-30.0) sec Carbon Dioxide (22-30) mmol/L BUN (7-17) mg/dL Creatinine (0.52-1.04) mg/dL POC Glucose (mg/dL) 116 H 117 H (75-99) mg/dL Calcium (8.4-10.2) mg/dL AST (14-36) U/L Total Protein (6.3-8.2) g/dL Albumin (3.5-5.0) g/dL 12/19/17 12/19/17 12/19/17 Range/Units 02:35 07:08 09:23 RBC 2.80 L (3.80-5.40) m/uL Hgb 8.5 L (11.4-16.0) gm/dL Hct 27.2 L (34.0-46.0) % Lymphocytes # 0.9 L (1.0-4.8) k/uL APTT 54.7 H (22.0-30.0) sec Carbon Dioxide (22-30) mmol/L BUN (7-17) mg/dL Creatinine (0.52-1.04) mg/dL POC Glucose (mg/dL) 101 H (75-99) mg/dL Calcium (8.4-10.2) mg/dL AST (14-36) U/L Total Protein (6.3-8.2) g/dL Albumin (3.5-5.0) g/dL 12/19/17 12/19/17 Range/Units 09:23 11:27 RBC (3.80-5.40) m/uL Hgb (11.4-16.0) gm/dL Hct (34.0-46.0) % Lymphocytes # (1.0-4.8) k/uL APTT (22.0-30.0) sec Carbon Dioxide 18 L (22-30) mmol/L BUN 59 H (7-17) mg/dL Creatinine 1.87 H (0.52-1.04) mg/dL POC Glucose (mg/dL) 109 H (75-99) mg/dL Calcium 8.3 L (8.4-10.2) mg/dL AST 38 H (14-36) U/L Total Protein 6.0 L (6.3-8.2) g/dL Albumin 2.6 L (3.5-5.0) g/dL Assessment and Plan Assessment: 1. Mechanical fall with intertrochanteric fracture of the left femur. Status post trochanteric intramedullary nailing 2. Coronary artery disease status post stenting in July 2016. Plavix restarted 3. Hypothyroidism continue Synthroid 75 g daily 4. 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 TAVR completed October 2016 6. Essential hypertension : Continue hydralazine and atenolol 7. History of ischemic cardiomyopathy with improvement of repeat echo showing an EF of 55-60% after the TAVR 8. Chronic systolic heart failure with improvement on repeat echo. Cardiology following. No evidence of exacerbation. Continue her oral Lasix 9. Acute on Chronic kidney disease stage IV. Continue with IV fluid hydration. Monitor closely while on Lasix. Creatinine 1.93 likely increased from the dose of IV Lasix . We'll monitor. Creatinine trending down 1.87 10. UTI: Urine culture growing enterococcus faecalis. Continue amoxicillin 11. Diet controlled diabetes mellitus per patient. A1c 5.1. Continue sliding scale during hospitalization 12. Anemia with evidence of iron deficiency anemia. Possible acute blood loss anemia at fracture site. Hemoglobin has dropped to 7.3. continue ferrous sulfate 325 mg twice a day. Low iron levels. Patient has received blood transfusion during this admission. Patient did have a low hemoglobin in November 2017 of 9.8. Stool for occult blood uncollected. Patient did receive IV iron during this admission. Hemoglobin trending down to 8.8. Hematology following they are recommending GI workup when current condition has improved. Hemoglobin 8.5 13. Right arm DVT: Continue IV heparin. Concerns also for possible left leg DVT. Patient unable to tolerate the venous Doppler of the lower extremity. Patient seen by Dr. Leo not a candidate for TPA. Also recommending repeating the lower extremity Doppler when pain is controlled. CT chest ordered by hematology for further evaluation of the cause of the right arm DVT. CT of chest completed showing postprocedural changes within the heart. Correlate for pulmonary artery hypertension noncontrast exam there are arthropathic changes. Per oncology services plan for coagulation for 3-6 months. 14. Leukocytosis: Consult infectious disease for further evaluation. White count 11.3 patient is being treated for UTI and on amoxicillin . Per infectious disease will keep patient on amoxicillin 500 mg to finish 5-7 day course of therapy. If patient spikes any fever or any further jump in white count, the patient will be recultured antibiotic will be adjusted further per infectious disease. 15. Pain control: Increased [place] to 10 mg every 6 hours. Discontinue IV morphine. Increase Dilaudid 1 mg every 4 hours as needed 16. Constipation add stool softener GI prophylaxis Pepcid and DVT prophylaxis SCDs and heparin drip I performed an examination of the patient and discussed their management with the Nurse Practitioner. I have reviewed the Nurse Practitioner's notes and agree with the documented findings and plan of care
[2017-12-19 17:10] LABS: Glucose,Whole Blood 105 mg/dL (75-99)
[2017-12-19] MEDS: HEPARIN SOD,PORK IN 0.45% NACL 25,000 UNIT in 0.45% NACL 1 500ML.BAG IV SCH (17:33)
[2017-12-19 20:11] LABS: Glucose,Whole Blood 106 mg/dL (75-99)
[2017-12-19] MEDS ORDERED: hydrALAZINE HCL 20 MG/ML 1 ML VIAL IVP PRN (20:28)
[2017-12-19] MEDS ORDERED: ENOXAPARIN 80 MG/0.8 ML SYRINGE SQ SCH (22:00)
--- NOTE | 2017-12-19 22:31 | PN ---
PROGRESS NOTE DATE OF SERVICE: 12/19/2017 REASON FOR FOLLOWUP: Leukocytosis, UTI. INTERVAL HISTORY: The patient is currently afebrile. The patient remains pleasantly confused. No chest pain or any cough. No abdominal pain or any diarrhea reported. PHYSICAL EXAMINATION: Her blood pressure is 141/68 with a pulse of 68, temperature 98.2. General description is an elderly female lying in bed in no distress. RESPIRATORY SYSTEM: Unlabored breathing. Clear to auscultation anteriorly. HEART: S1, S2. Regular rate and rhythm. ABDOMEN: Soft. No tenderness. Slight distention. EXTREMITIES: No edema of the feet. LABS: Hemoglobin 8.5, white count 9.7, BUN of 59, creatinine 1.87. DIAGNOSTIC IMPRESSION AND PLAN: Patient with leukocytosis which is likely multifactorial with a possible component of enterococcus urinary tract infection. Patient is currently covered with amoxicillin. That will be continued to finish a 5-day course of therapy. Continue with supportive care. MMODL / IJN: [id number] /
[2017-12-19] MEDS: ENOXAPARIN 60 MG/0.6 ML SYRINGE SQ SCH (23:50)
[2017-12-20] MEDS: AMOXICILLIN 500 MG CAP PO SCH ×3 (01:06→16:33)
[2017-12-20] MEDS: ALPRAZolam 0.25 MG TAB PO PRN (02:46)
[2017-12-20] MEDS: HYDROcodone/APAP 10-325MG 1 EACH TAB PO PRN ×2 (03:43→11:10)
[2017-12-20] MEDS: hydrALAZINE HCL 25 MG TAB PO SCH ×4 (04:27→22:50)
[2017-12-20 04:52] LABS: Basophils % (A) 0 %; Eosinophils # (A) 0.1 k/uL (0-0.7); Eosinophils % (A) 1 %; HCT 26.8 % (34.0-46.0); HGB 8.5 gm/dL (11.4-16.0); Hypochromasia Slight; Lymphocytes # (A) 1.6 k/uL (1.0-4.8); Lymphocytes % (A) 16 %; MCHC 31.8 g/dL (31.0-37.0); MCV 97.5 fL (80.0-100.0); Macrocytosis Slight; Mean Platelet Volume 6.9; Monocytes # (A) 0.7 k/uL (0-1.0); Monocytes % (A) 7 %; Neutrophils # (A) 7.3 k/uL (1.3-7.7); Neutrophils % (A) 74 %; Platelet Count 365 k/uL (150-450); RBC 2.75 m/uL (3.80-5.40); RDW 15.5 % (11.5-15.5); WBC 9.9 k/uL (3.8-10.6)
[2017-12-20 05:04] LABS: Albumin 2.7 g/dL (3.5-5.0); Calcium 8.6 mg/dL (8.4-10.2); Potassium 4.1 mmol/L (3.5-5.1); Total Bilirubin 1.1 mg/dL (0.2-1.3); Total Protein 6.2 g/dL (6.3-8.2)
[2017-12-20] MEDS: LEVOTHYROXINE 75 MCG TAB PO SCH (05:59)
[2017-12-20 07:09] LABS: Glucose,Whole Blood 96 mg/dL (75-99)
[2017-12-20] MEDS: hydrALAZINE HCL 50 MG TAB PO SCH (09:32)
[2017-12-20] MEDS: FERROUS SULFATE 325 MG TAB PO SCH ×2 (09:32→20:19)
[2017-12-20] MEDS: SODIUM CHLORIDE 0.9% 1,000 ML IV SCH ×2 (09:33→20:14)
[2017-12-20] MEDS: SODIUM BICARBONATE TAB 650 MG TAB PO SCH ×2 (09:33→20:19)
[2017-12-20] MEDS: INSULIN ASPART 100 UNIT/ML 1 ML 10 ML VIAL SQ SCH ×4 (09:33→22:31)
[2017-12-20] MEDS: DOCUSATE 100 MG CAP PO SCH ×2 (09:33→20:19)
[2017-12-20] MEDS: OXYBUTYNIN XL 5 MG TAB.ER.24 PO SCH (09:33)
[2017-12-20] MEDS: FAMOTIDINE 20 MG TAB PO SCH (09:33)
[2017-12-20] MEDS: CLOPIDOGREL 75 MG TAB PO SCH (09:33)
[2017-12-20] MEDS: ATENOLOL 25 MG TAB PO SCH (09:33)
[2017-12-20] MEDS: FUROSEMIDE 40 MG TAB PO SCH (09:33)
[2017-12-20] MEDS ORDERED: LACTULOSE 20 GM/30 ML CUP PO ONE (11:33)
--- NOTE | 2017-12-20 11:44 | P.PN ---
Subjective Progress Note Date: 12/20/17 This is a 87-year-old female, patient of Dr. Salgado. She has a known past medical history of coronary artery disease with stenting to the left circumflex in 2016 with an EF between 15-20% with severe cardiomyopathy, severe aortic stenosis status post TAVR October 2016, hypertension, chronic kidney disease, diet controlled diabetes mellitus, breast cancer status post mastectomy. She also has a history of hypothyroidism. Patient lives in assisted living home. Apparently she got up in the middle the night to walk to the bathroom and tripped and fell. She had significant pain and likely left hip and was brought into the emergency room for further evaluation and treatment. X-ray of the hip shows an acute comminuted displaced and trochanteric fracture of the left femur. She was admitted to orthopedic service. We have been consulted for medical management. Initially consult was placed for Dr. Conde who covers for Dr. Zhao. But there with clarification of patient's PCP which is Dr. Ledesma. Therefore consult was switched over today to us. During patient's fall she denies any loss of consciousness dizziness or lightheadedness. Denies any chest pain or shortness of breath. Denies any nausea or vomiting bowel movement changes or urinary symptoms. Apparently patient has been on Augmentin it is listed as one of her home medications for possibly a UTI. Urinalysis during this admission does show evidence of infection. Urine culture will be obtained. Patient is currently on Plavix and aspirin for her coronary artery disease and cardiac stents. I seen by cardiology these medications have been placed on hold. And they're anticipating surgery to be completed on Sunday. Patient currently lying in bed comfortably. No evidence of distress. 12/14/2017 patient is lying in bed comfortably. Pain is controlled. Hemoglobin has dropped to 7.3. She is receiving 1 unit of blood per orthopedic. She did have evidence of low iron of 19. Discuss with orthopedics. They're planning to proceed with surgery tomorrow. Also discussed with cardiology. Cardiology is recommending that patient be off of Plavix for 5 days due to increased risk of bleeding. Patient denies any chest pain or shortness of breath. Denies any nausea or vomiting. Denies any bowel movement changes or urinary symptoms. On 12/15/2017 patient was seen and examined she is laying in bed she is complaining of pain in her hip otherwise she denies any complaints no fever or chills no headache or dizziness no chest pain no shortness of breath no cough no nausea or vomiting no abdominal pain no diarrhea and no urinary symptoms On 12/16/2017 patient was seen and examined she is alert and oriented 3 she is complaining of pain and swelling in her right upper extremity extending from the hand to right below the shoulder IV is in the right forearm at this time patient is also having pain in the hip otherwise she denies any complaints there is no fever or chills no headache or dizziness no chest pain no shortness of breath no cough no nausea or vomiting no abdominal pain and no urinary symptoms 12/17/2017 patient has had increased swelling in the right upper arm which was positive for a DVT. Left leg also having increased swelling and pain. Patient not able to complete full ultrasound of the leg. What was evaluated was negative for DVT. Patient is having a lot of pain in the left leg groin area. Nurses have having difficulty getting IV access. Patient is not a candidate for a midline. Patient has had a history of a left mastectomy and the right arm has the blood clot. [facility] they will be placing a central line in the right groin. Patient did receive a unit of blood yesterday. Hemoglobin has gone up from 7.3-9.4. White count has also increased 11.3. She is having blood drainage at the right medial thigh from a small laceration. Otherwise no signs of cellulitis. Urine culture growing Enterococcus faecalis 12/18/2017 patient is still complaining of pain in the left leg and right arm. She was scheduled for computed tomography scan of the chest for further evaluation of right upper extremity blood clot. White count remains at 11.3. Hemoglobin has dropped to 8.8 from 9.4. Creatinine has gone up from 1.82-1.93. Patient did receive a dose of IV Lasix yesterday. She remains on the IV heparin drip. Patient seen by Dr. Leo and was not a candidate for TPA due to recent surgery. Patient denies any chest pain or shortness of breath. Denies any nausea or vomiting. No bowel movement yesterday reported. Stool softener will be added. Denies any burning with urination. On 12/19/2017 patient is awake and alert. Patient is still complaining of pain to left leg. Patient seen with an 8.5. Patient remains on heparin drip at this time patient denies chest pain or shortness breath. Patient denies any nausea vomiting. Denies any burning with urination 12/20/2017 Patient is sitting in bedside chair. Pain is better controlled, but still having some left leg pain. Decrease in swelling in the right arm. Overnight patient pulled out her triple lumen from the right leg. Per nursing there have been some complaints of pain and chest pain. This has resolved. Dr. Leo will be placing another triple lumen this afternoon. Patient denies any chest pain or shortness of breath. She denies any nausea or vomiting. She was able to eat some breakfast. No bowel movement reported. Denies any burning with urination. Patient was placed on subcu Lovenox and she has no IV access at this time. Objective - Vital Signs Vital signs: Vital Signs Temp 98.0 F 12/20/17 08:00 Pulse 75 12/20/17 08:00 Resp 16 12/20/17 08:00 BP 181/75 12/20/17 08:00 Pulse Ox 99 12/20/17 08:00 Intake & Output 12/19/17 12/20/17 12/20/17 18:59 06:59 18:59 Intake Total 883.767 790 Output Total 1400 700 Balance 883.767 -610 -700 Intake: IV 200 0.9 @ 75 200 Intake, IV Titration 883.767 Amount Heparin Sod,Pork in 0.45% 283.767 NaCl 25,000 unit In 0.45 % NaCl 1 500ml.bag @ 18 UNITS/KG/HR 27.75 mls/hr IV .[id number] [facility] Rx#: [id number] Sodium Chloride 0.9% 1, 600 000 ml @ 75 mls/hr IV . [id number] [facility] Rx#:[id number] Oral 590 Output: Urine 1400 700 Uretheral (Oropeza) 700 700 Other: Voiding Method Indwelling Catheter Indwelling Catheter Indwelling Catheter # Voids 2 - Exam Head normocephalic Neck supple Lungs clear to auscultation bilaterally no wheezing or crackles Heart regular rate and rhythm S1-S2, no rub or gallop Abdomen is soft nontender nondistended positive bowel sounds no hepatosplenomegaly Extremities left leg is swollen and calf tenderness. Dressing saturated with sanguinous fluid Neuro alert and orientated to 2. Her name and place - Labs CBC & Chem 7: 12/20/17 04:39 12/20/17 04:39 Labs: Abnormal Lab Results - Last 24 Hours (Table) 12/19/17 12/19/17 12/19/17 Range/Units 11:27 16:59 20:10 RBC (3.80-5.40) m/uL Hgb (11.4-16.0) gm/dL Hct (34.0-46.0) % Sodium (137-145) mmol/L Carbon Dioxide (22-30) mmol/L BUN (7-17) mg/dL Creatinine (0.52-1.04) mg/dL POC Glucose (mg/dL) 109 H 105 H 106 H (75-99) mg/dL AST (14-36) U/L Total Protein (6.3-8.2) g/dL Albumin (3.5-5.0) g/dL 12/20/17 12/20/17 Range/Units 04:39 04:39 RBC 2.75 L (3.80-5.40) m/uL Hgb 8.5 L (11.4-16.0) gm/dL Hct 26.8 L (34.0-46.0) % Sodium 135 L (137-145) mmol/L Carbon Dioxide 14 L (22-30) mmol/L BUN 59 H (7-17) mg/dL Creatinine 1.66 H (0.52-1.04) mg/dL POC Glucose (mg/dL) (75-99) mg/dL AST 40 H (14-36) U/L Total Protein 6.2 L (6.3-8.2) g/dL Albumin 2.7 L (3.5-5.0) g/dL Assessment and Plan Assessment: 1. Mechanical fall with intertrochanteric fracture of the left femur. Status post trochanteric intramedullary nailing 2. Coronary artery disease status post stenting in July 2016. Plavix restarted 3. Hypothyroidism continue Synthroid 75 g daily 4. 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 TAVR completed October 2016 6. Essential hypertension : Continue hydralazine and atenolol 7. History of ischemic cardiomyopathy with improvement of repeat echo showing an EF of 55-60% after the TAVR 8. Chronic systolic heart failure with improvement on repeat echo. Cardiology following. No evidence of exacerbation. Continue her oral Lasix 9. Acute on Chronic kidney disease stage IV. Continue with IV fluid hydration. Monitor closely while on Lasix. Creatinine 1.93 likely increased from the dose of IV Lasix . We'll monitor 10. UTI: Urine culture growing enterococcus faecalis. Continue amoxicillin 11. Diet controlled diabetes mellitus per patient. A1c 5.1. Continue sliding scale during hospitalization 12. Anemia with evidence of iron deficiency anemia. Possible acute blood loss anemia at fracture site. Hemoglobin has dropped to 7.3. continue ferrous sulfate 325 mg twice a day. Low iron levels. Patient has received blood transfusion during this admission. Patient did have a low hemoglobin in November 2017 of 9.8. Stool for occult blood uncollected. Patient did receive IV iron during this admission. Hemoglobin trending down to 8.8. Hematology following they are recommending GI workup when current condition has improved. 13. Right arm DVT: Continue IV heparin. Concerns also for possible left leg DVT. Patient unable to tolerate the venous Doppler of the lower extremity. Patient seen by Dr. Leo not a candidate for TPA. Also recommending repeating the lower extremity Doppler when pain is controlled. CT chest ordered by hematology for further evaluation of the cause of the right arm DVT. CT of chest completed showing postprocedural changes within the heart. Correlate for pulmonary artery hypertension noncontrast exam there are arthropathic changes. Per oncology services plan for coagulation for 3-6 months. 14. Leukocytosis: White count has normalized. Likely related to her UTI and possibly to DVT. Continue with the amoxicillin for a total of 55 days. 15. Pain control: Increased [place] to 10 mg every 6 hours. Discontinue IV morphine. Increase Dilaudid 1 mg every 4 hours as needed 16. Constipation add stool softener. We'll give 1 dose of lactulose GI prophylaxis Pepcid and DVT prophylaxis SCDs I performed an examination of the patient and discussed their management with the physician Senior Production Planner. I have reviewed the Physician Senior Production Planner's notes and agree with the documented findings and plan of care
[2017-12-20 11:53] LABS: Glucose,Whole Blood 112 mg/dL (75-99)
[2017-12-20] MEDS: HEPARIN SOD,PORK IN 0.45% NACL 25,000 UNIT in 0.45% NACL 1 500ML.BAG IV SCH (12:01)
[2017-12-20] MEDS: ENOXAPARIN 60 MG/0.6 ML SYRINGE SQ SCH (13:53)
[2017-12-20 14:06] VITALS: BMI 30.1
[2017-12-20] MEDS ORDERED: LIDOCAINE 1% INJ 10MG/ML (20 ML MDV) SQ ONE ×2 (15:53)
[2017-12-20] MEDS: HYDROmorphone 1 MG/ML 1 ML SYRINGE IVP PRN (16:33)
[2017-12-20 16:58] LABS: Glucose,Whole Blood 107 mg/dL (75-99)
[2017-12-20] MEDS ORDERED: WARFARIN 7.5 MG TAB PO ONE (18:00)
[2017-12-20 19:56] LABS: Glucose,Whole Blood 113 mg/dL (75-99)
--- NOTE | 2017-12-20 22:39 | PCN ---
PROCEDURE NOTE PROCEDURE: Triple-lumen catheter placement, ultrasound-guided right femoral approach. DESCRIPTION: The patient was brought to the laborer plumbing. Right groin was prepped and draped in sterile manner. Ultrasound-guided micropuncture entered into the right femoral vein. Four- Swedish dilator was advanced and the regular guidewire was passed. After that, we exchanged for the guidewire and dilator was advanced. The triple-lumen catheter was advanced on the top of the guidewire. It was flushed with heparin and saline and hep- locked. It was secured with 3-0 nylon. Dressing applied. The patient tolerated the procedure well. MMODL / IJN: [id number] /
--- NOTE | 2017-12-20 22:45 | PN ---
PROGRESS NOTE DATE OF SERVICE: 12/20/2017. REASON FOR FOLLOWUP: Leukocytosis and Enterococcus faecium. INTERVAL HISTORY: The patient is afebrile. He seems to be more awake and alert today. Breathing comfortably. No chest pain, cough, abdominal pain, or any diarrhea. EXAMINATION: Blood pressure is 114/60 with a pulse of 78, temperature 97.6. She is 100% on 2 L nasal cannula. GENERAL DESCRIPTION: An elderly female up in the chair in no distress. RESPIRATORY SYSTEM: Unlabored breathing. Clear to auscultation anteriorly. HEART: S1, S2. Regular rate and rhythm. ABDOMEN: Soft, no tenderness. LABS: Hemoglobin 8.5, white count 9.9 with a BUN of 59, creatinine is 1.66. DIAGNOSTIC IMPRESSION AND PLAN: Patient with leukocytosis which is likely multifactorial. Possible component of enterococcus urinary tract infection. The patient is currently covered with amoxicillin. This will be continued to finish a 5-day course of therapy. Continue supportive care. MMODL / IJN: [id number] /
[2017-12-21] MEDS: AMOXICILLIN 500 MG CAP PO SCH ×3 (01:06→17:24)
[2017-12-21] MEDS: LEVOTHYROXINE 75 MCG TAB PO SCH (05:28)
[2017-12-21] MEDS: HEPARIN SOD,PORK IN 0.45% NACL 25,000 UNIT in 0.45% NACL 1 500ML.BAG IV SCH (05:31)
[2017-12-21 06:56] LABS: Glucose,Whole Blood 98 mg/dL (75-99)
[2017-12-21 08:16] LABS: Basophils % (A) 0 %; Eosinophils # (A) 0.2 k/uL (0-0.7); Eosinophils % (A) 3 %; HCT 23.7 % (34.0-46.0); HGB 7.5 gm/dL (11.4-16.0); Hypochromasia Slight; Lymphocytes # (A) 1.1 k/uL (1.0-4.8); Lymphocytes % (A) 16 %; MCH 30.4 pg (25.0-35.0); MCHC 31.6 g/dL (31.0-37.0); MCV 96.3 fL (80.0-100.0); Mean Platelet Volume 7.3; Monocytes # (A) 0.6 k/uL (0-1.0); Monocytes % (A) 8 %; Neutrophils # (A) 4.9 k/uL (1.3-7.7); Neutrophils % (A) 72 %; Platelet Count 330 k/uL (150-450); RBC 2.46 m/uL (3.80-5.40); RDW 15.5 % (11.5-15.5); WBC 6.8 k/uL (3.8-10.6)
[2017-12-21 08:50] LABS: Albumin 2.4 g/dL (3.5-5.0); Calcium 8.2 mg/dL (8.4-10.2); Potassium 3.8 mmol/L (3.5-5.1); Total Bilirubin 0.9 mg/dL (0.2-1.3); Total Protein 5.7 g/dL (6.3-8.2)
[2017-12-21] MEDS: INSULIN ASPART 100 UNIT/ML 1 ML 10 ML VIAL SQ SCH ×4 (08:59→21:20)
[2017-12-21] MEDS ORDERED: ENOXAPARIN 80 MG/0.8 ML SYRINGE SQ SCH (09:00)
[2017-12-21] MEDS: CLOPIDOGREL 75 MG TAB PO SCH (09:05)
[2017-12-21] MEDS: ATENOLOL 25 MG TAB PO SCH (09:05)
[2017-12-21] MEDS: FAMOTIDINE 20 MG TAB PO SCH (09:06)
[2017-12-21] MEDS: DOCUSATE 100 MG CAP PO SCH ×2 (09:06→21:20)
[2017-12-21] MEDS: FERROUS SULFATE 325 MG TAB PO SCH ×2 (09:06→21:20)
[2017-12-21] MEDS: OXYBUTYNIN XL 5 MG TAB.ER.24 PO SCH (09:06)
[2017-12-21] MEDS: hydrALAZINE HCL 25 MG TAB PO SCH ×3 (09:06→21:20)
[2017-12-21] MEDS: HYDROmorphone 1 MG/ML 1 ML SYRINGE IVP PRN (09:07)
[2017-12-21] MEDS: SODIUM BICARBONATE TAB 650 MG TAB PO SCH ×2 (09:10→21:22)
[2017-12-21] MEDS: FUROSEMIDE 40 MG TAB PO SCH (09:10)
[2017-12-21 11:20] LABS: Glucose,Whole Blood 160 mg/dL (75-99)
[2017-12-21 11:46] LABS: Prothrombin Time 9.6 sec (9.0-12.0)
--- NOTE | 2017-12-21 12:14 | P.PN ---
Subjective Progress Note Date: 12/21/17 This is a 87-year-old female, patient of Dr. Salgado. She has a known past medical history of coronary artery disease with stenting to the left circumflex in 2016 with an EF between 15-20% with severe cardiomyopathy, severe aortic stenosis status post TAVR October 2016, hypertension, chronic kidney disease, diet controlled diabetes mellitus, breast cancer status post mastectomy. She also has a history of hypothyroidism. Patient lives in assisted living home. Apparently she got up in the middle the night to walk to the bathroom and tripped and fell. She had significant pain and likely left hip and was brought into the emergency room for further evaluation and treatment. X-ray of the hip shows an acute comminuted displaced and trochanteric fracture of the left femur. She was admitted to orthopedic service. We have been consulted for medical management. Initially consult was placed for Dr. Conde who covers for Dr. Zhao. But there with clarification of patient's PCP which is Dr. Ledesma. Therefore consult was switched over today to us. During patient's fall she denies any loss of consciousness dizziness or lightheadedness. Denies any chest pain or shortness of breath. Denies any nausea or vomiting bowel movement changes or urinary symptoms. Apparently patient has been on Augmentin it is listed as one of her home medications for possibly a UTI. Urinalysis during this admission does show evidence of infection. Urine culture will be obtained. Patient is currently on Plavix and aspirin for her coronary artery disease and cardiac stents. I seen by cardiology these medications have been placed on hold. And they're anticipating surgery to be completed on Sunday. Patient currently lying in bed comfortably. No evidence of distress. 12/14/2017 patient is lying in bed comfortably. Pain is controlled. Hemoglobin has dropped to 7.3. She is receiving 1 unit of blood per orthopedic. She did have evidence of low iron of 19. Discuss with orthopedics. They're planning to proceed with surgery tomorrow. Also discussed with cardiology. Cardiology is recommending that patient be off of Plavix for 5 days due to increased risk of bleeding. Patient denies any chest pain or shortness of breath. Denies any nausea or vomiting. Denies any bowel movement changes or urinary symptoms. On 12/15/2017 patient was seen and examined she is laying in bed she is complaining of pain in her hip otherwise she denies any complaints no fever or chills no headache or dizziness no chest pain no shortness of breath no cough no nausea or vomiting no abdominal pain no diarrhea and no urinary symptoms On 12/16/2017 patient was seen and examined she is alert and oriented 3 she is complaining of pain and swelling in her right upper extremity extending from the hand to right below the shoulder IV is in the right forearm at this time patient is also having pain in the hip otherwise she denies any complaints there is no fever or chills no headache or dizziness no chest pain no shortness of breath no cough no nausea or vomiting no abdominal pain and no urinary symptoms 12/17/2017 patient has had increased swelling in the right upper arm which was positive for a DVT. Left leg also having increased swelling and pain. Patient not able to complete full ultrasound of the leg. What was evaluated was negative for DVT. Patient is having a lot of pain in the left leg groin area. Nurses have having difficulty getting IV access. Patient is not a candidate for a midline. Patient has had a history of a left mastectomy and the right arm has the blood clot. [facility] they will be placing a central line in the right groin. Patient did receive a unit of blood yesterday. Hemoglobin has gone up from 7.3-9.4. White count has also increased 11.3. She is having blood drainage at the right medial thigh from a small laceration. Otherwise no signs of cellulitis. Urine culture growing Enterococcus faecalis 12/18/2017 patient is still complaining of pain in the left leg and right arm. She was scheduled for computed tomography scan of the chest for further evaluation of right upper extremity blood clot. White count remains at 11.3. Hemoglobin has dropped to 8.8 from 9.4. Creatinine has gone up from 1.82-1.93. Patient did receive a dose of IV Lasix yesterday. She remains on the IV heparin drip. Patient seen by Dr. Leo and was not a candidate for TPA due to recent surgery. Patient denies any chest pain or shortness of breath. Denies any nausea or vomiting. No bowel movement yesterday reported. Stool softener will be added. Denies any burning with urination. On 12/19/2017 patient is awake and alert. Patient is still complaining of pain to left leg. Patient seen with an 8.5. Patient remains on heparin drip at this time patient denies chest pain or shortness breath. Patient denies any nausea vomiting. Denies any burning with urination 12/20/2017 Patient is sitting in bedside chair. Pain is better controlled, but still having some left leg pain. Decrease in swelling in the right arm. Overnight patient pulled out her triple lumen from the right leg. Per nursing there have been some complaints of pain and chest pain. This has resolved. Dr. Leo will be placing another triple lumen this afternoon. Patient denies any chest pain or shortness of breath. She denies any nausea or vomiting. She was able to eat some breakfast. No bowel movement reported. Denies any burning with urination. Patient was placed on subcu Lovenox and she has no IV access at this time. 12/21/2017 patient had another triple lumen to the right femoral area replaced. She remains on Lovenox 80 mg subcu every 12 hours for bridging with Coumadin. INR is 1. Show received Coumadin 7.5 tonight. Patient sitting up at bedside chair. She is complaining of left hip pain. Denies any chest pain or shortness of breath. Denies any nausea or vomiting. Has Oropeza catheter in place Objective - Vital Signs Vital signs: Vital Signs Temp 98.2 F 12/21/17 07:00 Pulse 72 12/21/17 07:00 Resp 16 12/21/17 07:00 BP 153/70 12/21/17 07:00 Pulse Ox 99 12/21/17 07:00 Intake & Output 12/20/17 12/21/17 12/21/17 18:59 06:59 18:59 Intake Total 50 240 Output Total 1400 1000 Balance -1400 -950 240 Weight 77.111 kg Intake: Oral 50 240 Output: Urine 1400 1000 Uretheral (Oropeza) 1400 Other: Voiding Method Indwelling Catheter Indwelling Catheter Indwelling Catheter - Exam Head normocephalic Neck supple Lungs clear to auscultation bilaterally no wheezing or crackles Heart regular rate and rhythm S1-S2, no rub or gallop Abdomen is soft nontender nondistended positive bowel sounds no hepatosplenomegaly Extremities left leg tender in the thigh and groin area Neuro awake and alert answering questions appropriately - Labs CBC & Chem 7: 12/21/17 07:52 12/21/17 07:52 Labs: Abnormal Lab Results - Last 24 Hours (Table) 12/20/17 12/20/17 12/21/17 Range/Units 16:54 19:43 07:52 RBC 2.46 L (3.80-5.40) m/uL Hgb 7.5 L (11.4-16.0) gm/dL Hct 23.7 L (34.0-46.0) % Sodium (137-145) mmol/L Carbon Dioxide (22-30) mmol/L BUN (7-17) mg/dL Creatinine (0.52-1.04) mg/dL POC Glucose (mg/dL) 107 H 113 H (75-99) mg/dL Calcium (8.4-10.2) mg/dL AST (14-36) U/L Total Protein (6.3-8.2) g/dL Albumin (3.5-5.0) g/dL 12/21/17 12/21/17 Range/Units 07:52 11:06 RBC (3.80-5.40) m/uL Hgb (11.4-16.0) gm/dL Hct (34.0-46.0) % Sodium 136 L (137-145) mmol/L Carbon Dioxide 20 L (22-30) mmol/L BUN 62 H (7-17) mg/dL Creatinine 1.91 H (0.52-1.04) mg/dL POC Glucose (mg/dL) 160 H (75-99) mg/dL Calcium 8.2 L (8.4-10.2) mg/dL AST 42 H (14-36) U/L Total Protein 5.7 L (6.3-8.2) g/dL Albumin 2.4 L (3.5-5.0) g/dL Assessment and Plan Assessment: 1. Mechanical fall with intertrochanteric fracture of the left femur. Status post trochanteric intramedullary nailing 2. Coronary artery disease status post stenting in July 2016. Plavix restarted 3. Hypothyroidism continue Synthroid 75 g daily 4. 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 TAVR completed October 2016 6. Essential hypertension : Continue hydralazine and atenolol 7. History of ischemic cardiomyopathy with improvement of repeat echo showing an EF of 55-60% after the TAVR 8. Chronic systolic heart failure with improvement on repeat echo. Cardiology following. No evidence of exacerbation. Continue her oral Lasix 9. Acute on Chronic kidney disease stage IV. Monitor closely while on Lasix. Creatinine 1.91 10. UTI: Urine culture growing enterococcus faecalis. Continue amoxicillin 11. Diet controlled diabetes mellitus per patient. A1c 5.1. Continue sliding scale during hospitalization 12. Anemia with evidence of iron deficiency anemia. Possible acute blood loss anemia at fracture site. Hemoglobin has dropped to 7.3. continue ferrous sulfate 325 mg twice a day. Low iron levels. Patient has received blood transfusion during this admission. Patient did have a low hemoglobin in November 2017 of 9.8. Stool for occult blood uncollected. Patient did receive IV iron during this admission. Hemoglobin trending down to 8.8. Hematology following they are recommending GI workup when current condition has improved. hemoglobin down to 7.5 we'll need to transfuse for hemoglobin less than 7 13. Right arm DVT: Concerns also for possible left leg DVT. Patient unable to tolerate the venous Doppler of the lower extremity. Patient seen by Dr. Leo not a candidate for TPA. Also recommending repeating the lower extremity Doppler when pain is controlled. CT chest ordered by hematology for further evaluation of the cause of the right arm DVT. CT of chest completed showing postprocedural changes within the heart. Correlate for pulmonary artery hypertension noncontrast exam there are arthropathic changes. Per oncology services plan for anticoagulation for 3-6 months. patient currently on Lovenox 80 mg subcu every 12 hours to bridge until Coumadin is therapeutic. INR 1.0 Coumadin 7.5 mg being given tonight 14. Leukocytosis: White count has normalized. Likely related to her UTI and possibly to DVT. Continue with the amoxicillin for a total of 55 days. 15. Pain control: Increased [place] to 10 mg every 6 hours. Discontinue IV morphine. Increase Dilaudid 1 mg every 4 hours as needed 16. Constipation add stool softener. We'll repeat 1 dose of lactulose GI prophylaxis Pepcid and DVT prophylaxis SCDs I performed an examination of the patient and discussed their management with the physician Frit Burner. I have reviewed the Physician Frit Burner's notes and agree with the documented findings and plan of care
[2017-12-21] MEDS ORDERED: LACTULOSE 20 GM/30 ML CUP PO ONE (12:30)
[2017-12-21] MEDS ORDERED: WARFARIN 7.5 MG TAB PO ONE (18:00)
[2017-12-21 18:23] LABS: Glucose,Whole Blood 182 mg/dL (75-99)
[2017-12-21 20:31] LABS: Glucose,Whole Blood 131 mg/dL (75-99)
[2017-12-21] MEDS: HYDROcodone/APAP 10-325MG 1 EACH TAB PO PRN (21:19)
[2017-12-21] MEDS: SODIUM CHLORIDE 0.9% 1,000 ML IV SCH (21:20)
[2017-12-22] MEDS: AMOXICILLIN 500 MG CAP PO SCH ×3 (00:26→16:11)
[2017-12-22] MEDS: LEVOTHYROXINE 75 MCG TAB PO SCH (05:03)
[2017-12-22] MEDS: HYDROcodone/APAP 10-325MG 1 EACH TAB PO PRN ×2 (05:04→10:18)
[2017-12-22 07:04] LABS: Glucose,Whole Blood 132 mg/dL (75-99)
[2017-12-22] MEDS: INSULIN ASPART 100 UNIT/ML 1 ML 10 ML VIAL SQ SCH ×4 (07:19→22:44)
[2017-12-22 07:42] LABS: Basophils % (A) 0 %; Eosinophils # (A) 0.2 k/uL (0-0.7); Eosinophils % (A) 3 %; HCT 26.9 % (34.0-46.0); HGB 8.4 gm/dL (11.4-16.0); Hypochromasia Slight; Lymphocytes # (A) 1.1 k/uL (1.0-4.8); Lymphocytes % (A) 15 %; MCH 29.5 pg (25.0-35.0); MCHC 31.3 g/dL (31.0-37.0); MCV 94.3 fL (80.0-100.0); Mean Platelet Volume 7.1; Monocytes # (A) 0.7 k/uL (0-1.0); Monocytes % (A) 9 %; Neutrophils # (A) 5.2 k/uL (1.3-7.7); Neutrophils % (A) 71 %; Platelet Count 324 k/uL (150-450); RBC 2.86 m/uL (3.80-5.40); RDW 15.5 % (11.5-15.5); WBC 7.3 k/uL (3.8-10.6)
--- NOTE | 2017-12-22 07:44 | PN ---
PROGRESS NOTE DATE OF SERVICE: 12/21/2017. REASON FOR FOLLOWUP: Leukocytosis and Enterococcus UTI. INTERVAL HISTORY: The patient is afebrile. She is more awake and alert. She is breathing comfortably. Denies having any chest pain, shortness of breath, cough, no abdominal pain, or any diarrhea. EXAMINATION: Blood pressure 148/74 with a pulse of 68, temperature 98.4. She is 99% on room air. General description is an elderly female up in the bed in no distress. Respiratory system unlabored breathing, clear to auscultation anteriorly. Heart S1, S2. Regular rate and rhythm. ABDOMEN: Soft. No tenderness. LABS: Hemoglobin 7.5, white count 6.8 with a BUN of 62, creatinine is 1.91. DIAGNOSTIC IMPRESSION AND PLAN: Patient with leukocytosis which is likely multifactorial, likely component of urinary tract infection. Urine showing Enterococcus species currently covered with amoxicillin to finish a 7 day course of therapy. Continue supportive care. MMODL / IJN: [id number] /
[2017-12-22] MEDS: ATENOLOL 25 MG TAB PO SCH (07:46)
[2017-12-22] MEDS: FAMOTIDINE 20 MG TAB PO SCH (07:47)
[2017-12-22] MEDS: FERROUS SULFATE 325 MG TAB PO SCH ×2 (07:47→22:46)
[2017-12-22] MEDS: CLOPIDOGREL 75 MG TAB PO SCH (07:47)
[2017-12-22] MEDS: hydrALAZINE HCL 25 MG TAB PO SCH ×3 (07:47→22:44)
[2017-12-22] MEDS: DOCUSATE 100 MG CAP PO SCH ×2 (07:47→22:46)
[2017-12-22] MEDS: FUROSEMIDE 40 MG TAB PO SCH (07:47)
[2017-12-22] MEDS: OXYBUTYNIN XL 5 MG TAB.ER.24 PO SCH (07:48)
[2017-12-22 07:57] LABS: INR 1.1 (<1.2); Prothrombin Time 10.6 sec (9.0-12.0)
[2017-12-22] MEDS: SODIUM BICARBONATE TAB 650 MG TAB PO SCH ×2 (07:57→22:46)
[2017-12-22 08:10] LABS: Albumin 2.3 g/dL (3.5-5.0); Calcium 8.1 mg/dL (8.4-10.2); Potassium 3.8 mmol/L (3.5-5.1); Total Bilirubin 0.8 mg/dL (0.2-1.3); Total Protein 5.5 g/dL (6.3-8.2)
[2017-12-22] MEDS ORDERED: ENOXAPARIN 80 MG/0.8 ML SYRINGE SQ SCH (09:00)
--- NOTE | 2017-12-22 11:15 | P.PN ---
Subjective Progress Note Date: 12/22/17 This is a 87-year-old female, patient of Dr. Salgado. She has a known past medical history of coronary artery disease with stenting to the left circumflex in 2016 with an EF between 15-20% with severe cardiomyopathy, severe aortic stenosis status post TAVR October 2016, hypertension, chronic kidney disease, diet controlled diabetes mellitus, breast cancer status post mastectomy. She also has a history of hypothyroidism. Patient lives in assisted living home. Apparently she got up in the middle the night to walk to the bathroom and tripped and fell. She had significant pain and likely left hip and was brought into the emergency room for further evaluation and treatment. X-ray of the hip shows an acute comminuted displaced and trochanteric fracture of the left femur. She was admitted to orthopedic service. We have been consulted for medical management. Initially consult was placed for Dr. Conde who covers for Dr. Zhao. But there with clarification of patient's PCP which is Dr. Ledesma. Therefore consult was switched over today to us. During patient's fall she denies any loss of consciousness dizziness or lightheadedness. Denies any chest pain or shortness of breath. Denies any nausea or vomiting bowel movement changes or urinary symptoms. Apparently patient has been on Augmentin it is listed as one of her home medications for possibly a UTI. Urinalysis during this admission does show evidence of infection. Urine culture will be obtained. Patient is currently on Plavix and aspirin for her coronary artery disease and cardiac stents. I seen by cardiology these medications have been placed on hold. And they're anticipating surgery to be completed on Sunday. Patient currently lying in bed comfortably. No evidence of distress. 12/14/2017 patient is lying in bed comfortably. Pain is controlled. Hemoglobin has dropped to 7.3. She is receiving 1 unit of blood per orthopedic. She did have evidence of low iron of 19. Discuss with orthopedics. They're planning to proceed with surgery tomorrow. Also discussed with cardiology. Cardiology is recommending that patient be off of Plavix for 5 days due to increased risk of bleeding. Patient denies any chest pain or shortness of breath. Denies any nausea or vomiting. Denies any bowel movement changes or urinary symptoms. On 12/15/2017 patient was seen and examined she is laying in bed she is complaining of pain in her hip otherwise she denies any complaints no fever or chills no headache or dizziness no chest pain no shortness of breath no cough no nausea or vomiting no abdominal pain no diarrhea and no urinary symptoms On 12/16/2017 patient was seen and examined she is alert and oriented 3 she is complaining of pain and swelling in her right upper extremity extending from the hand to right below the shoulder IV is in the right forearm at this time patient is also having pain in the hip otherwise she denies any complaints there is no fever or chills no headache or dizziness no chest pain no shortness of breath no cough no nausea or vomiting no abdominal pain and no urinary symptoms 12/17/2017 patient has had increased swelling in the right upper arm which was positive for a DVT. Left leg also having increased swelling and pain. Patient not able to complete full ultrasound of the leg. What was evaluated was negative for DVT. Patient is having a lot of pain in the left leg groin area. Nurses have having difficulty getting IV access. Patient is not a candidate for a midline. Patient has had a history of a left mastectomy and the right arm has the blood clot. [facility] they will be placing a central line in the right groin. Patient did receive a unit of blood yesterday. Hemoglobin has gone up from 7.3-9.4. White count has also increased 11.3. She is having blood drainage at the right medial thigh from a small laceration. Otherwise no signs of cellulitis. Urine culture growing Enterococcus faecalis 12/18/2017 patient is still complaining of pain in the left leg and right arm. She was scheduled for computed tomography scan of the chest for further evaluation of right upper extremity blood clot. White count remains at 11.3. Hemoglobin has dropped to 8.8 from 9.4. Creatinine has gone up from 1.82-1.93. Patient did receive a dose of IV Lasix yesterday. She remains on the IV heparin drip. Patient seen by Dr. Leo and was not a candidate for TPA due to recent surgery. Patient denies any chest pain or shortness of breath. Denies any nausea or vomiting. No bowel movement yesterday reported. Stool softener will be added. Denies any burning with urination. On 12/19/2017 patient is awake and alert. Patient is still complaining of pain to left leg. Patient seen with an 8.5. Patient remains on heparin drip at this time patient denies chest pain or shortness breath. Patient denies any nausea vomiting. Denies any burning with urination 12/20/2017 Patient is sitting in bedside chair. Pain is better controlled, but still having some left leg pain. Decrease in swelling in the right arm. Overnight patient pulled out her triple lumen from the right leg. Per nursing there have been some complaints of pain and chest pain. This has resolved. Dr. Leo will be placing another triple lumen this afternoon. Patient denies any chest pain or shortness of breath. She denies any nausea or vomiting. She was able to eat some breakfast. No bowel movement reported. Denies any burning with urination. Patient was placed on subcu Lovenox and she has no IV access at this time. 12/21/2017 patient had another triple lumen to the right femoral area replaced. She remains on Lovenox 80 mg subcu every 12 hours for bridging with Coumadin. INR is 1. Show received Coumadin 7.5 tonight. Patient sitting up at bedside chair. She is complaining of left hip pain. Denies any chest pain or shortness of breath. Denies any nausea or vomiting. Has Oropeza catheter in place On 12/22/2017 patient is alert and oriented 3 she is complaining of lower extremity pain otherwise no complaints, there is no fever or chills no headache no dizziness no chest pain no shortness of breath no cough no nausea or vomiting no abdominal pain no diarrhea and no urinary symptoms Objective - Vital Signs Vital signs: Vital Signs Temp 97.6 F 12/22/17 07:00 Pulse 58 L 12/22/17 07:00 Resp 17 12/22/17 07:00 BP 156/69 12/22/17 07:00 Pulse Ox 99 12/22/17 07:00 Intake & Output 12/21/17 12/22/17 12/22/17 18:59 06:59 18:59 Intake Total 1040 730 Output Total 1000 Balance 40 730 Intake: Intake, IV Titration 400 300 Amount Sodium Chloride 0.9% 1, 400 300 000 ml @ 50 mls/hr IV . Q20H [facility] Rx#:[id number] Oral 340 120 Blood Product 0 310 Rc As-1 Unit 0 310 [id number] Other 300 Output: Urine 1000 Other: Voiding Method Indwelling Catheter Indwelling Catheter Indwelling Catheter # Voids 2 # Bowel Movements 3 - Exam Head normocephalic Neck supple Lungs clear to auscultation bilaterally no wheezing or crackles Heart regular rate and rhythm S1-S2, no rub or gallop Abdomen is soft nontender nondistended positive bowel sounds no hepatosplenomegaly Extremities left leg tender in the thigh and groin area Neuro awake and alert answering questions appropriately - Labs CBC & Chem 7: 12/22/17 07:08 12/22/17 07:08 Labs: Abnormal Lab Results - Last 24 Hours (Table) 12/21/17 12/21/17 12/21/17 Range/Units 11:06 14:57 18:00 RBC (3.80-5.40) m/uL Hgb (11.4-16.0) gm/dL Hct (34.0-46.0) % Sodium (137-145) mmol/L Carbon Dioxide (22-30) mmol/L BUN (7-17) mg/dL Creatinine (0.52-1.04) mg/dL Glucose (74-99) mg/dL POC Glucose (mg/dL) 160 H 182 H (75-99) mg/dL Calcium (8.4-10.2) mg/dL AST (14-36) U/L Total Protein (6.3-8.2) g/dL Albumin (3.5-5.0) g/dL Crossmatch See Detail 12/21/17 12/22/17 12/22/17 Range/Units 20:19 07:03 07:08 RBC 2.86 L (3.80-5.40) m/uL Hgb 8.4 L (11.4-16.0) gm/dL Hct 26.9 L (34.0-46.0) % Sodium (137-145) mmol/L Carbon Dioxide (22-30) mmol/L BUN (7-17) mg/dL Creatinine (0.52-1.04) mg/dL Glucose (74-99) mg/dL POC Glucose (mg/dL) 131 H 132 H (75-99) mg/dL Calcium (8.4-10.2) mg/dL AST (14-36) U/L Total Protein (6.3-8.2) g/dL Albumin (3.5-5.0) g/dL Crossmatch 12/22/17 Range/Units 07:08 RBC (3.80-5.40) m/uL Hgb (11.4-16.0) gm/dL Hct (34.0-46.0) % Sodium 133 L (137-145) mmol/L Carbon Dioxide 19 L (22-30) mmol/L BUN 63 H (7-17) mg/dL Creatinine 1.86 H (0.52-1.04) mg/dL Glucose 114 H (74-99) mg/dL POC Glucose (mg/dL) (75-99) mg/dL Calcium 8.1 L (8.4-10.2) mg/dL AST 45 H (14-36) U/L Total Protein 5.5 L (6.3-8.2) g/dL Albumin 2.3 L (3.5-5.0) g/dL Crossmatch Assessment and Plan Plan: 1. Mechanical fall with intertrochanteric fracture of the left femur. Status post trochanteric intramedullary nailing 2. Coronary artery disease status post stenting in July 2016. Plavix restarted 3. Hypothyroidism continue Synthroid 75 g daily 4. 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 TAVR completed October 2016 6. Essential hypertension : Continue hydralazine and atenolol 7. History of ischemic cardiomyopathy with improvement of repeat echo showing an EF of 55-60% after the TAVR 8. Chronic systolic heart failure with improvement on repeat echo. Cardiology following. No evidence of exacerbation. Continue her oral Lasix 9. Acute on Chronic kidney disease stage IV. Monitor closely while on Lasix. Creatinine 1.91 10. UTI: Urine culture growing enterococcus faecalis. Continue amoxicillin 11. Diet controlled diabetes mellitus per patient. A1c 5.1. Continue sliding scale during hospitalization 12. Anemia with evidence of iron deficiency anemia. Possible acute blood loss anemia at fracture site. Hemoglobin has dropped to 7.3. continue ferrous sulfate 325 mg twice a day. Low iron levels. Patient has received blood transfusion during this admission. Patient did have a low hemoglobin in November 2017 of 9.8. Stool for occult blood uncollected. Patient did receive IV iron during this admission. Hemoglobin trending down to 8.8. Hematology following they are recommending GI workup when current condition has improved. hemoglobin down to 7.5 we'll need to transfuse for hemoglobin less than 7 13. Right arm DVT: Concerns also for possible left leg DVT. Patient unable to tolerate the venous Doppler of the lower extremity. Patient seen by Dr. Leo not a candidate for TPA. Also recommending repeating the lower extremity Doppler when pain is controlled. CT chest ordered by hematology for further evaluation of the cause of the right arm DVT. CT of chest completed showing postprocedural changes within the heart. Correlate for pulmonary artery hypertension noncontrast exam there are arthropathic changes. Per oncology services plan for anticoagulation for 3-6 months. patient currently on Lovenox 80 mg subcu every 12 hours to bridge until Coumadin is therapeutic. At this time Coumadin was discontinued we are still awaiting case worker work to assess if Eliquis or Xarelto will be covered [place] be covered 14. Leukocytosis: White count has normalized. Likely related to her UTI and possibly to DVT. Continue with the amoxicillin for a total of 55 days. 15. Pain control: Increased [place] to 10 mg every 6 hours. Discontinue IV morphine. Increase Dilaudid 1 mg every 4 hours as needed 16. Constipation add stool softener. We'll repeat 1 dose of lactulose GI prophylaxis Pepcid and DVT prophylaxis SCDs
[2017-12-22 12:12] LABS: Glucose,Whole Blood 170 mg/dL (75-99)
[2017-12-22] MEDS: SODIUM CHLORIDE 0.9% 1,000 ML IV SCH (16:11)
[2017-12-22 16:37] LABS: Glucose,Whole Blood 167 mg/dL (75-99)
[2017-12-22 19:54] LABS: Glucose,Whole Blood 147 mg/dL (75-99)
[2017-12-22] MEDS: ENOXAPARIN 60 MG/0.6 ML SYRINGE SQ SCH (22:46)
[2017-12-23] MEDS: AMOXICILLIN 500 MG CAP PO SCH ×3 (00:25→15:16)
[2017-12-23] MEDS: HYDROcodone/APAP 10-325MG 1 EACH TAB PO PRN ×4 (03:09→22:57)
[2017-12-23] MEDS: HYDROmorphone 1 MG/ML 1 ML SYRINGE IVP PRN (05:46)
[2017-12-23] MEDS: LEVOTHYROXINE 75 MCG TAB PO SCH (06:05)
[2017-12-23 07:17] LABS: Glucose,Whole Blood 123 mg/dL (75-99)
[2017-12-23] MEDS: ALPRAZolam 0.25 MG TAB PO PRN ×2 (07:28→22:54)
[2017-12-23] MEDS: INSULIN ASPART 100 UNIT/ML 1 ML 10 ML VIAL SQ SCH ×4 (08:09→22:54)
[2017-12-23] MEDS: ATENOLOL 25 MG TAB PO SCH (09:38)
[2017-12-23] MEDS: CLOPIDOGREL 75 MG TAB PO SCH (09:38)
[2017-12-23] MEDS: DOCUSATE 100 MG CAP PO SCH ×2 (09:38→22:53)
[2017-12-23] MEDS: hydrALAZINE HCL 25 MG TAB PO SCH ×2 (09:39→15:16)
[2017-12-23] MEDS: FERROUS SULFATE 325 MG TAB PO SCH ×2 (09:39→22:54)
[2017-12-23] MEDS: FAMOTIDINE 20 MG TAB PO SCH (09:39)
[2017-12-23] MEDS: FUROSEMIDE 40 MG TAB PO SCH (09:39)
[2017-12-23] MEDS: OXYBUTYNIN XL 5 MG TAB.ER.24 PO SCH (09:40)
[2017-12-23] MEDS: SODIUM BICARBONATE TAB 650 MG TAB PO SCH ×2 (09:40→22:57)
[2017-12-23] MEDS: SODIUM CHLORIDE 0.9% 1,000 ML IV SCH (10:45)
--- NOTE | 2017-12-23 11:22 | P.PN ---
Subjective Progress Note Date: 12/23/17 This is a 87-year-old female, patient of Dr. Salgado. She has a known past medical history of coronary artery disease with stenting to the left circumflex in 2016 with an EF between 15-20% with severe cardiomyopathy, severe aortic stenosis status post TAVR October 2016, hypertension, chronic kidney disease, diet controlled diabetes mellitus, breast cancer status post mastectomy. She also has a history of hypothyroidism. Patient lives in assisted living home. Apparently she got up in the middle the night to walk to the bathroom and tripped and fell. She had significant pain and likely left hip and was brought into the emergency room for further evaluation and treatment. X-ray of the hip shows an acute comminuted displaced and trochanteric fracture of the left femur. She was admitted to orthopedic service. We have been consulted for medical management. Initially consult was placed for Dr. Conde who covers for Dr. Zhao. But there with clarification of patient's PCP which is Dr. Ledesma. Therefore consult was switched over today to us. During patient's fall she denies any loss of consciousness dizziness or lightheadedness. Denies any chest pain or shortness of breath. Denies any nausea or vomiting bowel movement changes or urinary symptoms. Apparently patient has been on Augmentin it is listed as one of her home medications for possibly a UTI. Urinalysis during this admission does show evidence of infection. Urine culture will be obtained. Patient is currently on Plavix and aspirin for her coronary artery disease and cardiac stents. I seen by cardiology these medications have been placed on hold. And they're anticipating surgery to be completed on Sunday. Patient currently lying in bed comfortably. No evidence of distress. 12/14/2017 patient is lying in bed comfortably. Pain is controlled. Hemoglobin has dropped to 7.3. She is receiving 1 unit of blood per orthopedic. She did have evidence of low iron of 19. Discuss with orthopedics. They're planning to proceed with surgery tomorrow. Also discussed with cardiology. Cardiology is recommending that patient be off of Plavix for 5 days due to increased risk of bleeding. Patient denies any chest pain or shortness of breath. Denies any nausea or vomiting. Denies any bowel movement changes or urinary symptoms. On 12/15/2017 patient was seen and examined she is laying in bed she is complaining of pain in her hip otherwise she denies any complaints no fever or chills no headache or dizziness no chest pain no shortness of breath no cough no nausea or vomiting no abdominal pain no diarrhea and no urinary symptoms On 12/16/2017 patient was seen and examined she is alert and oriented 3 she is complaining of pain and swelling in her right upper extremity extending from the hand to right below the shoulder IV is in the right forearm at this time patient is also having pain in the hip otherwise she denies any complaints there is no fever or chills no headache or dizziness no chest pain no shortness of breath no cough no nausea or vomiting no abdominal pain and no urinary symptoms 12/17/2017 patient has had increased swelling in the right upper arm which was positive for a DVT. Left leg also having increased swelling and pain. Patient not able to complete full ultrasound of the leg. What was evaluated was negative for DVT. Patient is having a lot of pain in the left leg groin area. Nurses have having difficulty getting IV access. Patient is not a candidate for a midline. Patient has had a history of a left mastectomy and the right arm has the blood clot. [facility] they will be placing a central line in the right groin. Patient did receive a unit of blood yesterday. Hemoglobin has gone up from 7.3-9.4. White count has also increased 11.3. She is having blood drainage at the right medial thigh from a small laceration. Otherwise no signs of cellulitis. Urine culture growing Enterococcus faecalis 12/18/2017 patient is still complaining of pain in the left leg and right arm. She was scheduled for computed tomography scan of the chest for further evaluation of right upper extremity blood clot. White count remains at 11.3. Hemoglobin has dropped to 8.8 from 9.4. Creatinine has gone up from 1.82-1.93. Patient did receive a dose of IV Lasix yesterday. She remains on the IV heparin drip. Patient seen by Dr. Leo and was not a candidate for TPA due to recent surgery. Patient denies any chest pain or shortness of breath. Denies any nausea or vomiting. No bowel movement yesterday reported. Stool softener will be added. Denies any burning with urination. On 12/19/2017 patient is awake and alert. Patient is still complaining of pain to left leg. Patient seen with an 8.5. Patient remains on heparin drip at this time patient denies chest pain or shortness breath. Patient denies any nausea vomiting. Denies any burning with urination 12/20/2017 Patient is sitting in bedside chair. Pain is better controlled, but still having some left leg pain. Decrease in swelling in the right arm. Overnight patient pulled out her triple lumen from the right leg. Per nursing there have been some complaints of pain and chest pain. This has resolved. Dr. Leo will be placing another triple lumen this afternoon. Patient denies any chest pain or shortness of breath. She denies any nausea or vomiting. She was able to eat some breakfast. No bowel movement reported. Denies any burning with urination. Patient was placed on subcu Lovenox and she has no IV access at this time. 12/21/2017 patient had another triple lumen to the right femoral area replaced. She remains on Lovenox 80 mg subcu every 12 hours for bridging with Coumadin. INR is 1. Show received Coumadin 7.5 tonight. Patient sitting up at bedside chair. She is complaining of left hip pain. Denies any chest pain or shortness of breath. Denies any nausea or vomiting. Has Oropeza catheter in place On 12/22/2017 patient is alert and oriented 3 she is complaining of lower extremity pain otherwise no complaints, there is no fever or chills no headache no dizziness no chest pain no shortness of breath no cough no nausea or vomiting no abdominal pain no diarrhea and no urinary symptoms On 12/23/2017 patient is alert and oriented 3. Patient states she is feeling much improved. Patient currently on Lovenox 60 mg every 12 hours. At this time patient denies chest pain or shortness breath. Denies nausea vomiting or diarrhea. Patient denies any urinary burning or frequency. Objective - Vital Signs Vital signs: Vital Signs Temp 98.0 F 12/23/17 07:00 Pulse 68 12/23/17 07:00 Resp 20 12/23/17 07:00 BP 192/80 12/23/17 07:00 Pulse Ox 99 12/23/17 07:00 Intake & Output 12/22/17 12/23/17 12/23/17 18:59 06:59 18:59 Intake Total 920 650 Output Total 1100 875 Balance -1100 45 650 Intake: Intake, IV Titration 400 400 Amount Sodium Chloride 0.9% 1, 400 400 000 ml @ 50 mls/hr IV . Q20H [facility] Rx#:[id number] Oral 520 250 Output: Urine 1100 875 Other: Voiding Method Indwelling Catheter Indwelling Catheter # Voids 0 # Bowel Movements 1 - Exam Head normocephalic Neck supple Lungs clear to auscultation bilaterally no wheezing or crackles Heart regular rate and rhythm S1-S2, no rub or gallop Abdomen is soft nontender nondistended positive bowel sounds no hepatosplenomegaly Extremities left leg is swollen and calf tenderness. Dressing clean dry and intact Neuro alert and orientated to 2. Her name and place - Labs CBC & Chem 7: 12/22/17 07:08 12/22/17 07:08 Labs: Abnormal Lab Results - Last 24 Hours (Table) 12/22/17 12/22/17 12/22/17 Range/Units 12:11 16:36 19:50 POC Glucose (mg/dL) 170 H 167 H 147 H (75-99) mg/dL 12/23/17 Range/Units 07:17 POC Glucose (mg/dL) 123 H (75-99) mg/dL Assessment and Plan Assessment: 1. Mechanical fall with intertrochanteric fracture of the left femur. Status post trochanteric intramedullary nailing 2. Coronary artery disease status post stenting in July 2016. Plavix restarted 3. Hypothyroidism continue Synthroid 75 g daily 4. 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 TAVR completed October 2016 6. Essential hypertension : Continue hydralazine and atenolol 7. History of ischemic cardiomyopathy with improvement of repeat echo showing an EF of 55-60% after the TAVR 8. Chronic systolic heart failure with improvement on repeat echo. Cardiology following. No evidence of exacerbation. Continue her oral Lasix 9. Acute on Chronic kidney disease stage IV. Monitor closely while on Lasix. Creatinine 1.91 10. UTI: Urine culture growing enterococcus faecalis. Continue amoxicillin 11. Diet controlled diabetes mellitus per patient. A1c 5.1. Continue sliding scale during hospitalization 12. Anemia with evidence of iron deficiency anemia. Possible acute blood loss anemia at fracture site. Hemoglobin has dropped to 7.3. continue ferrous sulfate 325 mg twice a day. Low iron levels. Patient has received blood transfusion during this admission. Patient did have a low hemoglobin in November 2017 of 9.8. Stool for occult blood uncollected. Patient did receive IV iron during this admission. Hemoglobin trending down to 8.8. Hematology following they are recommending GI workup when current condition has improved. hemoglobin down to 7.5 we'll need to transfuse for hemoglobin less than 7 13. Right arm DVT: Concerns also for possible left leg DVT. Patient unable to tolerate the venous Doppler of the lower extremity. Patient seen by Dr. Leo not a candidate for TPA. Also recommending repeating the lower extremity Doppler when pain is controlled. CT chest ordered by hematology for further evaluation of the cause of the right arm DVT. CT of chest completed showing postprocedural changes within the heart. Correlate for pulmonary artery hypertension noncontrast exam there are arthropathic changes. Per oncology services plan for anticoagulation for 3-6 months. patient currently on Lovenox 80 mg subcu every 12 hours to bridge until Coumadin is therapeutic. At this time Coumadin was discontinued we are still awaiting pillowcase maker work to assess if Eliquis or Xarelto will be covered 14. Leukocytosis: White count has normalized. Likely related to her UTI and possibly to DVT. Continue with the amoxicillin for a total of 55 days. 15. Pain control: Increased [place] to 10 mg every 6 hours. Discontinue IV morphine. Increase Dilaudid 1 mg every 4 hours as needed 16. Constipation add stool softener. We'll repeat 1 dose of lactulose GI prophylaxis Pepcid and DVT prophylaxis Lovenox I performed an examination of the patient and discussed their management with the Nurse Practitioner. I have reviewed the Nurse Practitioner's notes and agree with the documented findings and plan of care
[2017-12-23] MEDS: ENOXAPARIN 60 MG/0.6 ML SYRINGE SQ SCH ×2 (11:31→22:54)
[2017-12-23 11:41] LABS: Glucose,Whole Blood 150 mg/dL (75-99)
[2017-12-23 12:15] LABS: Basophils % (A) 0 %; Eosinophils # (A) 0.2 k/uL (0-0.7); Eosinophils % (A) 2 %; HCT 26.1 % (34.0-46.0); HGB 8.1 gm/dL (11.4-16.0); Hypochromasia Slight; INR 1.1 (<1.2); Lymphocytes # (A) 1.1 k/uL (1.0-4.8); Lymphocytes % (A) 13 %; MCHC 31.3 g/dL (31.0-37.0); Mean Platelet Volume 7.2; Monocytes # (A) 0.7 k/uL (0-1.0); Monocytes % (A) 9 %; Neutrophils # (A) 6.3 k/uL (1.3-7.7); Neutrophils % (A) 75 %; Platelet Count 297 k/uL (150-450); Prothrombin Time 10.5 sec (9.0-12.0); RBC 2.71 m/uL (3.80-5.40); RDW 15.6 % (11.5-15.5); WBC 8.5 k/uL (3.8-10.6)
[2017-12-23 12:19] LABS: Albumin 2.2 g/dL (3.5-5.0); Calcium 7.8 mg/dL (8.4-10.2); Potassium 3.8 mmol/L (3.5-5.1); Total Bilirubin 0.8 mg/dL (0.2-1.3); Total Protein 5.3 g/dL (6.3-8.2)
[2017-12-23 17:08] LABS: Glucose,Whole Blood 172 mg/dL (75-99)
[2017-12-23 20:15] LABS: Glucose,Whole Blood 159 mg/dL (75-99)
--- NOTE | 2017-12-23 23:33 | PN ---
PROGRESS NOTE DATE OF SERVICE: 12/23/2017. REASON FOR FOLLOWUP: Leukocytosis and enterococcus urinary tract infection. INTERVAL HISTORY: The patient is currently afebrile. She is breathing comfortably. Denies having any chest pain, shortness of breath or cough. No abdominal pain or any diarrhea. EXAMINATION: Blood pressure 118/70 with a pulse of 74, temperature of 98.2, she is 98% on 2 L nasal cannula. GENERAL DESCRIPTION: An elderly female lying in bed in no distress. RESPIRATORY SYSTEM: Unlabored breathing. Clear to auscultation anteriorly. HEART: S1, S2. Regular rate and rhythm. ABDOMEN: Soft, no tenderness. LABS: Hemoglobin 8.1, white count 8.5 with a BUN of 56, creatinine is 1.6. IMPRESSION/PLAN: Patient with leukocytosis which is likely multifactorial with possible component of urinary tract infection. Urine has Enterococcus faecalis, currently on amoxicillin. The patient has finished about 5 days of antibiotics. This should be more than enough. Antibiotic can be discontinued at discharge. Continue supportive care. MMODL / IJN: [id number] /
[2017-12-24] MEDS: hydrALAZINE HCL 25 MG TAB PO SCH ×2 (01:28→09:06)
[2017-12-24] MEDS: AMOXICILLIN 500 MG CAP PO SCH ×2 (01:47→09:07)
[2017-12-24 07:16] LABS: Glucose,Whole Blood 90 mg/dL (75-99)
[2017-12-24] MEDS: INSULIN ASPART 100 UNIT/ML 1 ML 10 ML VIAL SQ SCH ×2 (08:58→12:31)
[2017-12-24] MEDS: FUROSEMIDE 40 MG TAB PO SCH (09:04)
[2017-12-24] MEDS: CLOPIDOGREL 75 MG TAB PO SCH (09:04)
[2017-12-24] MEDS: ATENOLOL 25 MG TAB PO SCH (09:05)
[2017-12-24] MEDS: DOCUSATE 100 MG CAP PO SCH (09:05)
[2017-12-24] MEDS: SODIUM BICARBONATE TAB 650 MG TAB PO SCH (09:05)
[2017-12-24] MEDS: FERROUS SULFATE 325 MG TAB PO SCH (09:05)
[2017-12-24] MEDS: OXYBUTYNIN XL 5 MG TAB.ER.24 PO SCH (09:06)
[2017-12-24] MEDS: HYDROcodone/APAP 10-325MG 1 EACH TAB PO PRN ×2 (09:06→14:37)
[2017-12-24] MEDS: FAMOTIDINE 20 MG TAB PO SCH (09:06)
[2017-12-24] MEDS: LEVOTHYROXINE 75 MCG TAB PO SCH (09:06)
[2017-12-24] MEDS: ENOXAPARIN 60 MG/0.6 ML SYRINGE SQ SCH (09:08)
[2017-12-24] MEDS: SODIUM CHLORIDE 0.9% 1,000 ML IV SCH (09:10)
[2017-12-24] MEDS: HYDROmorphone 1 MG/ML 1 ML SYRINGE IVP PRN (09:15)
--- NOTE | 2017-12-24 10:18 | P.PN ---
Subjective Progress Note Date: 12/24/17 This is a 87-year-old female, patient of Dr. Salgado. She has a known past medical history of coronary artery disease with stenting to the left circumflex in 2016 with an EF between 15-20% with severe cardiomyopathy, severe aortic stenosis status post TAVR October 2016, hypertension, chronic kidney disease, diet controlled diabetes mellitus, breast cancer status post mastectomy. She also has a history of hypothyroidism. Patient lives in assisted living home. Apparently she got up in the middle the night to walk to the bathroom and tripped and fell. She had significant pain and likely left hip and was brought into the emergency room for further evaluation and treatment. X-ray of the hip shows an acute comminuted displaced and trochanteric fracture of the left femur. She was admitted to orthopedic service. We have been consulted for medical management. Initially consult was placed for Dr. Conde who covers for Dr. Zhao. But there with clarification of patient's PCP which is Dr. Ledesma. Therefore consult was switched over today to us. During patient's fall she denies any loss of consciousness dizziness or lightheadedness. Denies any chest pain or shortness of breath. Denies any nausea or vomiting bowel movement changes or urinary symptoms. Apparently patient has been on Augmentin it is listed as one of her home medications for possibly a UTI. Urinalysis during this admission does show evidence of infection. Urine culture will be obtained. Patient is currently on Plavix and aspirin for her coronary artery disease and cardiac stents. I seen by cardiology these medications have been placed on hold. And they're anticipating surgery to be completed on Sunday. Patient currently lying in bed comfortably. No evidence of distress. 12/14/2017 patient is lying in bed comfortably. Pain is controlled. Hemoglobin has dropped to 7.3. She is receiving 1 unit of blood per orthopedic. She did have evidence of low iron of 19. Discuss with orthopedics. They're planning to proceed with surgery tomorrow. Also discussed with cardiology. Cardiology is recommending that patient be off of Plavix for 5 days due to increased risk of bleeding. Patient denies any chest pain or shortness of breath. Denies any nausea or vomiting. Denies any bowel movement changes or urinary symptoms. On 12/15/2017 patient was seen and examined she is laying in bed she is complaining of pain in her hip otherwise she denies any complaints no fever or chills no headache or dizziness no chest pain no shortness of breath no cough no nausea or vomiting no abdominal pain no diarrhea and no urinary symptoms On 12/16/2017 patient was seen and examined she is alert and oriented 3 she is complaining of pain and swelling in her right upper extremity extending from the hand to right below the shoulder IV is in the right forearm at this time patient is also having pain in the hip otherwise she denies any complaints there is no fever or chills no headache or dizziness no chest pain no shortness of breath no cough no nausea or vomiting no abdominal pain and no urinary symptoms 12/17/2017 patient has had increased swelling in the right upper arm which was positive for a DVT. Left leg also having increased swelling and pain. Patient not able to complete full ultrasound of the leg. What was evaluated was negative for DVT. Patient is having a lot of pain in the left leg groin area. Nurses have having difficulty getting IV access. Patient is not a candidate for a midline. Patient has had a history of a left mastectomy and the right arm has the blood clot. [facility] will be placing a central line in the right groin. Patient did receive a unit of blood yesterday. Hemoglobin has gone up from 7.3-9.4. White count has also increased 11.3. She is having blood drainage at the right medial thigh from a small laceration. Otherwise no signs of cellulitis. Urine culture growing Enterococcus faecalis 12/18/2017 patient is still complaining of pain in the left leg and right arm. She was scheduled for computed tomography scan of the chest for further evaluation of right upper extremity blood clot. White count remains at 11.3. Hemoglobin has dropped to 8.8 from 9.4. Creatinine has gone up from 1.82-1.93. Patient did receive a dose of IV Lasix yesterday. She remains on the IV heparin drip. Patient seen by Dr. Leo and was not a candidate for TPA due to recent surgery. Patient denies any chest pain or shortness of breath. Denies any nausea or vomiting. No bowel movement yesterday reported. Stool softener will be added. Denies any burning with urination. On 12/19/2017 patient is awake and alert. Patient is still complaining of pain to left leg. Patient seen with an 8.5. Patient remains on heparin drip at this time patient denies chest pain or shortness breath. Patient denies any nausea vomiting. Denies any burning with urination 12/20/2017 Patient is sitting in bedside chair. Pain is better controlled, but still having some left leg pain. Decrease in swelling in the right arm. Overnight patient pulled out her triple lumen from the right leg. Per nursing there have been some complaints of pain and chest pain. This has resolved. Dr. Leo will be placing another triple lumen this afternoon. Patient denies any chest pain or shortness of breath. She denies any nausea or vomiting. She was able to eat some breakfast. No bowel movement reported. Denies any burning with urination. Patient was placed on subcu Lovenox and she has no IV access at this time. 12/21/2017 patient had another triple lumen to the right femoral area replaced. She remains on Lovenox 80 mg subcu every 12 hours for bridging with Coumadin. INR is 1. Show received Coumadin 7.5 tonight. Patient sitting up at bedside chair. She is complaining of left hip pain. Denies any chest pain or shortness of breath. Denies any nausea or vomiting. Has Oropeza catheter in place 12/22/2017 patient is alert and oriented 3 she is complaining of lower extremity pain otherwise no complaints, there is no fever or chills no headache no dizziness no chest pain no shortness of breath no cough no nausea or vomiting no abdominal pain no diarrhea and no urinary symptoms On 12/23/2017 patient is alert and oriented 3. Patient states she is feeling much improved. Patient currently on Lovenox 60 mg every 12 hours. At this time patient denies chest pain or shortness breath. Denies nausea vomiting or diarrhea. Patient denies any urinary burning or frequency. 12/24/2017. Patient is resting comfortably. Is still requiring the IV Dilaudid for pain control. But her pain is showing improvement. She did have a bowel movement on the . [place] Oropeza catheter in place. Denies any chest pain or shortness of breath. She was able to eat breakfast. Objective - Vital Signs Vital signs: Vital Signs Temp 98.2 F 12/23/17 19:00 Pulse 64 12/23/17 20:35 Resp 18 12/24/17 00:00 BP 118/70 12/23/17 19:00 Pulse Ox 98 12/23/17 19:00 Intake & Output 12/23/17 12/24/17 12/24/17 18:59 06:59 18:59 Intake Total 1250 1950 Balance 1250 1950 Intake: IV 600 600 0.9 @ 75 600 600 Intake, IV Titration 400 400 Amount Sodium Chloride 0.9% 1, 400 400 000 ml @ 50 mls/hr IV . Q20H [facility] Rx#:[id number] Oral 250 950 Other: Voiding Method Indwelling Catheter Indwelling Catheter Indwelling Catheter - Exam Head normocephalic Neck supple Lungs clear to auscultation bilaterally no wheezing or crackles Heart regular rate and rhythm S1-S2, no rub or gallop Abdomen is soft nontender nondistended positive bowel sounds no hepatosplenomegaly Extremities left leg less tender some swelling still present. Right upper extremity swelling showing improvement Neuro awake and alert answering questions appropriately - Labs CBC & Chem 7: 12/23/17 12:00 12/23/17 12:00 Labs: Abnormal Lab Results - Last 24 Hours (Table) 12/23/17 12/23/17 12/23/17 Range/Units 11:40 12:00 12:00 RBC 2.71 L (3.80-5.40) m/uL Hgb 8.1 L (11.4-16.0) gm/dL Hct 26.1 L (34.0-46.0) % RDW 15.6 H (11.5-15.5) % Sodium 135 L (137-145) mmol/L Carbon Dioxide 20 L (22-30) mmol/L BUN 56 H (7-17) mg/dL Creatinine 1.68 H (0.52-1.04) mg/dL Glucose 143 H (74-99) mg/dL POC Glucose (mg/dL) 150 H (75-99) mg/dL Calcium 7.8 L (8.4-10.2) mg/dL AST 38 H (14-36) U/L Total Protein 5.3 L (6.3-8.2) g/dL Albumin 2.2 L (3.5-5.0) g/dL 12/23/17 12/23/17 Range/Units 17:07 20:04 RBC (3.80-5.40) m/uL Hgb (11.4-16.0) gm/dL Hct (34.0-46.0) % RDW (11.5-15.5) % Sodium (137-145) mmol/L Carbon Dioxide (22-30) mmol/L BUN (7-17) mg/dL Creatinine (0.52-1.04) mg/dL Glucose (74-99) mg/dL POC Glucose (mg/dL) 172 H 159 H (75-99) mg/dL Calcium (8.4-10.2) mg/dL AST (14-36) U/L Total Protein (6.3-8.2) g/dL Albumin (3.5-5.0) g/dL Assessment and Plan Assessment: 1. Mechanical fall with intertrochanteric fracture of the left femur. Status post trochanteric intramedullary nailing 2. Coronary artery disease status post stenting in July 2016. Plavix restarted 3. Hypothyroidism continue Synthroid 75 g daily 4. 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 TAVR completed October 2016 6. Essential hypertension : Continue hydralazine and atenolol 7. History of ischemic cardiomyopathy with improvement of repeat echo showing an EF of 55-60% after the TAVR 8. Chronic systolic heart failure with improvement on repeat echo. Cardiology following. No evidence of exacerbation. Continue her oral Lasix 9. Acute on Chronic kidney disease stage IV. Monitor closely while on Lasix. Creatinine 1.91 10. UTI: Urine culture growing enterococcus faecalis. Continue amoxicillin 11. Diet controlled diabetes mellitus per patient. A1c 5.1. Continue sliding scale during hospitalization 12. Anemia with evidence of iron deficiency anemia. Possible acute blood loss anemia at fracture site. Hemoglobin has dropped to 7.3. continue ferrous sulfate 325 mg twice a day. Low iron levels. Patient has received blood transfusion during this admission. Patient did have a low hemoglobin in November 2017 of 9.8. Stool for occult blood uncollected. Patient did receive IV iron during this admission. Hemoglobin trending down to 8.8. Hematology following they are recommending GI workup when current condition has improved. hemoglobin down to 7.5 we'll need to transfuse for hemoglobin less than 7 13. Right arm DVT: Concerns also for possible left leg DVT. Patient unable to tolerate the venous Doppler of the lower extremity. Patient seen by Dr. Leo not a candidate for TPA. Also recommending repeating the lower extremity Doppler when pain is controlled. CT chest ordered by hematology for further evaluation of the cause of the right arm DVT. CT of chest completed showing postprocedural changes within the heart. Correlate for pulmonary artery hypertension noncontrast exam there are arthropathic changes. Per oncology services plan for anticoagulation for 3-6 months. patient currently on Lovenox 60 mg subcu every 12 hours. Working on plan for oral anticoagulation 14. Leukocytosis: White count has normalized. Likely related to her UTI . Patient followed by infectious disease. The recommending mending no antibiotics at time of discharge 15. Pain control: Increased [place] to 10 mg every 6 hours. Discontinue IV morphine. Increase Dilaudid 1 mg every 4 hours as needed 16. Constipation resolved GI prophylaxis Pepcid and DVT prophylaxis Lovenox Continue physical therapy. Patient will likely require ECF placement at time of discharge I performed an examination of the patient and discussed their management with the physician Bridge Operator. I have reviewed the Physician Bridge Operator's notes and agree with the documented findings and plan of care
[2017-12-24 11:26] LABS: Glucose,Whole Blood 144 mg/dL (75-99)
--- NOTE | 2017-12-24 11:41 | P.DS ---
Providers Date of admission: 12/13/17 05:48 Expected date of discharge: 12/24/17 Attending physician: Jyothi Pham Consults: 12/13/17 09:05 Consult Physician Routine Consulting Provider: Carlos Enrique Drummond Consult Reason/Comments: cardiac clearance, fall, hip fracture Do you want consulting provider notified?: Yes 12/13/17 15:29 Consult Physician Routine Consulting Provider: Jyothi Pham Consult Reason/Comments: medical clearence Do you want consulting provider notified?: Yes 12/14/17 12:28 Consult Physician Routine Consulting Provider: Mike Medrano Consult Reason/Comments: anemia Do you want consulting provider notified?: Yes 12/16/17 20:48 Consult Physician Urgent Consulting Provider: Jerome Castillo 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 Mechanical fall with intertrochanteric fracture of the left femur. Status post trochanteric intramedullary nailing 2. Coronary artery disease status post stenting in July 2016. 3. Hypothyroidism continue Synthroid 75 g daily 4. 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 TAVR completed October 2016 6. Essential hypertension : Continue hydralazine and atenolol 7. History of ischemic cardiomyopathy with improvement of repeat echo showing an EF of 55-60% after the TAVR 8. Chronic systolic heart failure with improvement on repeat echo. Cardiology following. No evidence of exacerbation. Continue her oral Lasix 9. Acute on Chronic kidney disease stage IV. Creatinine is close to baseline 10. UTI: Urine culture growing enterococcus faecalis. Completed antibiotic course with amoxicillin during hospitalization 11. Diet controlled diabetes mellitus per patient. A1c 5.1. Continue sliding scale during hospitalization 12. Anemia with evidence of iron deficiency anemia. Possible acute blood loss anemia at fracture site. Hemoglobin has dropped to 7.3. continue ferrous sulfate 325 mg twice a day. Low iron levels. Patient has received blood transfusion during this admission. Patient did have a low hemoglobin in November 2017 of 9.8. Stool for occult blood uncollected. Patient did receive IV iron during this admission. Hematology following they are recommending GI workup when current condition has improved. Hemoglobin 8.1 13. Right arm DVT: Concerns also for possible left leg DVT. Patient unable to tolerate the venous Doppler of the lower extremity. Patient seen by Dr. Leo not a candidate for TPA. Also recommending repeating the lower extremity Doppler when pain is controlled. CT chest ordered by hematology for further evaluation of the cause of the right arm DVT. CT of chest completed showing postprocedural changes within the heart. Correlate for pulmonary artery hypertension noncontrast exam there are arthropathic changes. Per oncology services plan for anticoagulation for 3-6 months. Patient will be given Xarelto 15 mg twice a day for 21 days and then to for to 20 mg daily 14. Leukocytosis: White count has normalized. Likely related to her UTI . Patient followed by infectious disease. They are recommending no antibiotics at time of discharge 15. Pain control: Increased Dixon to 10 mg every 4 hours. 16. Constipation resolved Hospital course This is a 87-year-old female, patient of Dr. Salgado. She has a known past medical history of coronary artery disease with stenting to the left circumflex in 2017 with an EF between 15-20% with severe cardiomyopathy, severe aortic stenosis status post TAVR October 2016, hypertension, chronic kidney disease, diet controlled diabetes mellitus, breast cancer status post mastectomy. She also has a history of hypothyroidism. Patient lives in assisted living home. Apparently she got up in the middle the night to walk to the bathroom and tripped and fell. She had significant pain and likely left hip and was brought into the emergency room for further evaluation and treatment. X-ray of the hip shows an acute comminuted displaced and trochanteric fracture of the left femur. She was admitted to orthopedic service. We have been consulted for medical management. Initially consult was placed for Dr. Conde who covers for Dr. Zhao. But there with clarification of patient's PCP which is Dr. Ledesma. Therefore consult was switched over today to us. During patient's fall she denies any loss of consciousness dizziness or lightheadedness. Denies any chest pain or shortness of breath. Denies any nausea or vomiting bowel movement changes or urinary symptoms. Apparently patient has been on Augmentin it is listed as one of her home medications for possibly a UTI. Urinalysis during this admission does show evidence of infection. Urine culture will be obtained. Patient is currently on Plavix and aspirin for her coronary artery disease and cardiac stents. I seen by cardiology these medications have been placed on hold. And they're anticipating surgery to be completed on Sunday. Patient currently lying in bed comfortably. No evidence of distress. 12/14/2017 patient is lying in bed comfortably. Pain is controlled. Hemoglobin has dropped to 7.3. She is receiving 1 unit of blood per orthopedic. She did have evidence of low iron of 19. Discuss with orthopedics. They're planning to proceed with surgery tomorrow. Also discussed with cardiology. Cardiology is recommending that patient be off of Plavix for 5 days due to increased risk of bleeding. Patient denies any chest pain or shortness of breath. Denies any nausea or vomiting. Denies any bowel movement changes or urinary symptoms. On 12/15/2017 patient was seen and examined she is laying in bed she is complaining of pain in her hip otherwise she denies any complaints no fever or chills no headache or dizziness no chest pain no shortness of breath no cough no nausea or vomiting no abdominal pain no diarrhea and no urinary symptoms On 12/16/2017 patient was seen and examined she is alert and oriented 3 she is complaining of pain and swelling in her right upper extremity extending from the hand to right below the shoulder IV is in the right forearm at this time patient is also having pain in the hip otherwise she denies any complaints there is no fever or chills no headache or dizziness no chest pain no shortness of breath no cough no nausea or vomiting no abdominal pain and no urinary symptoms 12/17/2017 patient has had increased swelling in the right upper arm which was positive for a DVT. Left leg also having increased swelling and pain. Patient not able to complete full ultrasound of the leg. What was evaluated was negative for DVT. Patient is having a lot of pain in the left leg groin area. Nurses have having difficulty getting IV access. Patient is not a candidate for a midline. Patient has had a history of a left mastectomy and the right arm has the blood clot. Discussed with [facility] service they will be placing a central line in the right groin. Patient did receive a unit of blood yesterday. Hemoglobin has gone up from 7.3-9.4. White count has also increased 11.3. She is having blood drainage at the right medial thigh from a small laceration. Otherwise no signs of cellulitis. Urine culture growing Enterococcus faecalis 12/18/2017 patient is still complaining of pain in the left leg and right arm. She was scheduled for computed tomography scan of the chest for further evaluation of right upper extremity blood clot. White count remains at 11.3. Hemoglobin has dropped to 8.8 from 9.4. Creatinine has gone up from 1.82-1.93. Patient did receive a dose of IV Lasix yesterday. She remains on the IV heparin drip. Patient seen by Dr. Leo and was not a candidate for TPA due to recent surgery. Patient denies any chest pain or shortness of breath. Denies any nausea or vomiting. No bowel movement yesterday reported. Stool softener will be added. Denies any burning with urination. On 12/19/2017 patient is awake and alert. Patient is still complaining of pain to left leg. Patient seen with an 8.5. Patient remains on heparin drip at this time patient denies chest pain or shortness breath. Patient denies any nausea vomiting. Denies any burning with urination 12/20/2017 Patient is sitting in bedside chair. Pain is better controlled, but still having some left leg pain. Decrease in swelling in the right arm. Overnight patient pulled out her triple lumen from the right leg. Per nursing there have been some complaints of pain and chest pain. This has resolved. Dr. Leo will be placing another triple lumen this afternoon. Patient denies any chest pain or shortness of breath. She denies any nausea or vomiting. She was able to eat some breakfast. No bowel movement reported. Denies any burning with urination. Patient was placed on subcu Lovenox and she has no IV access at this time. 12/21/2017 patient had another triple lumen to the right femoral area replaced. She remains on Lovenox 80 mg subcu every 12 hours for bridging with Coumadin. INR is 1. Show received Coumadin 7.5 tonight. Patient sitting up at bedside chair. She is complaining of left hip pain. Denies any chest pain or shortness of breath. Denies any nausea or vomiting. Has Oropeza catheter in place 12/22/2017 patient is alert and oriented 3 she is complaining of lower extremity pain otherwise no complaints, there is no fever or chills no headache no dizziness no chest pain no shortness of breath no cough no nausea or vomiting no abdominal pain no diarrhea and no urinary symptoms On 12/23/2017 patient is alert and oriented 3. Patient states she is feeling much improved. Patient currently on Lovenox 60 mg every 12 hours. At this time patient denies chest pain or shortness breath. Denies nausea vomiting or diarrhea. Patient denies any urinary burning or frequency. 12/24/2017 patient showing improvement. She is medically stable to discharge to [facility] for further rehabilitation. During this hospitalization she was treated for a left femur fracture. She developed a right upper extremity DVT. She is still having some pain but better controlled. We will adjust her Dixon 10/325 mg 1 every 4 hours as needed for pain. During this admission she was also added on Xarelto for DVT in the right upper extremity. Plavix was discontinued since she was started on the Xarelto. Patient did have issues with anemia recommend to continue monitoring hemoglobin. Will recheck a CBC in 3 days. She required blood transfusion and IV iron during this mission. We'll continue with oral iron. Patient may benefit from a GI evaluation as she starts to show improvement. At this time no active signs of bleeding. Stool for occult blood was never collected during this admission but it had been ordered. Patient also had some acute kidney injury on top of her chronic kidney disease. Creatinine is closer to baseline at 1.68. Patient is medically stable for discharge. Please refer to chart for any further details. I performed an examination of the patient and discussed their management with the physician Applications Packager. I have reviewed the Physician Applications Packager's notes and agree with the documented findings and plan of care Patient Condition at Discharge: Stable Plan - Discharge Summary Discharge Rx Participant: No New Discharge Prescriptions: New Atenolol [Tenormin] 25 mg PO DAILY tab Docusate [Colace] 100 mg PO BID cap Ferrous Sulfate [Iron (65 MG Elemental)] 325 mg PO BID #0 tab hydrALAZINE HCL [Apresoline] 75 mg PO TID tab Levothyroxine Sodium [Synthroid] 75 mcg PO DAILY@0630 tab Rivaroxaban [Xarelto] 15 mg PO BID-W/MEALS #42 tab Rivaroxaban [Xarelto] 20 mg PO DAILY #30 tab HYDROcodone/APAP 10-325MG [[place] 10-325] 1 tab PO Q4HR PRN 3 Days #18 tab PRN Reason: Pain Continue Famotidine [Pepcid] 20 mg PO DAILY Sodium Bicarbonate Tab 650 mg PO BID Furosemide [Lasix] 40 mg PO DAILY ALPRAZolam [Xanax] 0.25 mg PO DAILY PRN #3 tab PRN Reason: Anxiety Discontinued Atenolol 25 mg PO BID Clopidogrel Bisulfate [Plavix] 75 mg PO DAILY hydrALAZINE HCL 25 mg PO Q8H Acetaminophen-Codeine 300-30mg [Tylenol w/codeine #3] 1 tab PO HS PRN PRN Reason: Pain Levothyroxine Sodium [Levoxyl] 37.5 mg PO DAILY Discharge Medication List Famotidine [Pepcid] 20 mg PO DAILY 12/08/14 [History] Furosemide [Lasix] 40 mg PO DAILY 12/13/17 [History] Sodium Bicarbonate Tab 650 mg PO BID 12/13/17 [History] ALPRAZolam [Xanax] 0.25 mg PO DAILY PRN #3 tab 12/24/17 [Rx] Atenolol [Tenormin] 25 mg PO DAILY tab 12/24/17 [Rx] Docusate [Colace] 100 mg PO BID cap 12/24/17 [Rx] Ferrous Sulfate [Iron (65 MG Elemental)] 325 mg PO BID #0 tab 12/24/17 [Rx] HYDROcodone/APAP 10-325MG [[place] 10-325] 1 tab PO Q4HR PRN 3 Days #18 tab [Rx] Levothyroxine Sodium [Synthroid] 75 mcg PO DAILY@0630 tab 12/24/17 [Rx] Rivaroxaban [Xarelto] 15 mg PO BID-W/MEALS #42 tab 12/24/17 [Rx] Rivaroxaban [Xarelto] 20 mg PO DAILY #30 tab 12/24/17 [Rx] hydrALAZINE HCL [Apresoline] 75 mg PO TID tab 12/24/17 [Rx] Follow up Appointment(s)/Referral(s): Meg Ledesma MD [Primary Care Provider] - 1 Week Ambulatory/Diagnostic Orders: Complete Blood Count w/diff [LAB.AMB] Time Frame: 3 Days, Location: None Selected Activity/Diet/Wound Care/Special Instructions: Blanco copay $31.60 Diet: cardiac Activity: as tolerated patient ok to discharge to [facility]. Dr. Pham to follow at [facility] Discharge Disposition: TRANSFER TO SNF/ECF
--- NOTE | 2017-12-24 12:56 | P.PN ---
Subjective Progress Note Date: 12/24/17 Principal diagnosis: Fracture of Hip and Anemia Estrella is resting in bed, no acute complaints overnight. Awaiting CBC result from today Objective - Vital Signs Vital signs: Vital Signs Temp 96.9 F L 12/24/17 07:00 Pulse 62 12/24/17 07:00 Resp 17 12/24/17 07:00 BP 134/63 12/24/17 07:00 Pulse Ox 98 12/23/17 19:00 Intake & Output 12/23/17 12/24/17 12/24/17 18:59 06:59 18:59 Intake Total 1250 1950 Balance 1250 1950 Intake: IV 600 600 0.9 @ 75 600 600 Intake, IV Titration 400 400 Amount Sodium Chloride 0.9% 1, 400 400 000 ml @ 50 mls/hr IV . Q20H [facility] Rx#:[id number] Oral 250 950 Other: Voiding Method Indwelling Catheter Indwelling Catheter Indwelling Catheter # Bowel Movements 1 - Exam - Constitutional General appearance: Present: average body habitus, cooperative, no acute distress - EENT EENT Comment(s): Oral mucosa is dry with black residue on mucosal surface, lips and tongue Eyes: Present: anicteric sclerae ENT: Present: hearing grossly normal - Respiratory Respiratory: bilateral: diminished (weak inspiratory effort) - Cardiovascular Heart sounds: normal: S1, S2 - Gastrointestinal General gastrointestinal: Present: normal bowel sounds, soft - Musculoskeletal Musculoskeletal: Present: generalized weakness - Psychiatric Psychiatric Comment(s): A & O to self, place, pleasant, - Labs CBC & Chem 7: 12/23/17 12:00 12/23/17 12:00 Labs: Abnormal Lab Results - Last 24 Hours (Table) 12/23/17 12/23/17 12/24/17 Range/Units 17:07 20:04 11:07 POC Glucose (mg/dL) 172 H 159 H 144 H (75-99) mg/dL Assessment and Plan Plan: Assessment and Recommendations: 1. Normocytic Anemia: Component of iron deficiency and Chronic Kidney Disease, component of Dilution - Status Post Parental Iron - Monitor Daily CBC, if hemoglobin less than 7, transfuse PRBC - GI work up is recommended but pt current condition is not amenable to endoscopic intervention. Son Marquez (Next of Kin) does not want endoscopy aat this time. - Await CBC today. 2. Acute on Chronic Kidney disease Stage IV: 3. Mechanical fall with intertrochanteric fracture of the left femur. - Patient is scheduled for surgery on Sunday because she had been on Plavix. - Plavix is currently on hold. - Cardiology recommending to hold Plavix for 5 days before surgical intervention. 4. DVT: RUE DVT Acute - Patient was changed to Xarelto, from heparin drip, although will require close monitoring of renal function and hemoglobin. CBC and CMP re-ordered for today. - If AC therapy PO route is desired maybe better with patients renal function and current state to consider eliquis over xarelto, will defer to ordering physician. - Plan is for anticoagulation for 3-6 months. Hopefully we can do doppler of both legs in the near future for baseline. 5. HX: Breast Cancer: - No current signs of progression - Tumor Markers Evaluated and WNL.
[2017-12-24 14:41] VITALS: BP 179/81; PULSE 66; RESP 16; TEMP 98.2
[2017-12-24] MEDS: ALPRAZolam 0.25 MG TAB PO PRN (15:20)
[2017-12-24] MEDS ORDERED: RIVAROXABAN 15 MG TAB PO SCH (17:30)
--- NOTE | 2017-12-25 00:19 | PN ---
PROGRESS NOTE DATE OF SERVICE: 12/24/2017. REASON FOR FOLLOWUP: Leukocytosis and UTI. INTERVAL HISTORY: The patient was seen on rounds earlier this afternoon. The patient has been afebrile. She has been breathing comfortably, more awake, alert. No chest pain, cough, abdominal pain, or any diarrhea. EXAMINATION: Blood pressure is 117/81 with a pulse of 66, temperature 98.2. She is 97% on room air. General description is an elderly female, lying in bed in no distress. Respiratory system unlabored breathing, clear to auscultation anteriorly. Heart S1, S2. Regular rate and rhythm. ABDOMEN: Soft, no tenderness. LABS: Hemoglobin 8.1, white count 8.5. BUN of 56, creatinine is 1.68. DIAGNOSTIC IMPRESSION AND PLAN: Patient with leukocytosis, likely multifactorial. She did have a component of Enterococcus urinary tract infection, underlying infection has been adequately treated. Her white count is normal. Antibiotic can be safely discontinued and continue supportive care. MMODL / IJN: [id number] /
== END 2017-12-24 16:00 | DRG 481 ==
LOC: EC 03:41 → 3SUR 05:48 → 4SSUR 12-16 07:45 → 3SUR 12-16 07:45 → 4SSUR 12-17 13:30
PROVIDERS: ADMIT Internal Medicine; ATTEND Internal Medicine
PROC: 30233N1 Transfusion of Nonautologous Red Blood Cells into Peripheral Vein, Percutaneous Approach (ICD-10-PCS; 2017-12-14)
PROC: 0QS736Z Reposition Left Upper Femur with Intramedullary Internal Fixation Device, Percutaneous Approach (ICD-10-PCS; principal; 2017-12-15 09:30)
PROC: 06HM33Z Insertion of Infusion Device into Right Femoral Vein, Percutaneous Approach (ICD-10-PCS; 2017-12-17)
PROC: 06HM33Z Insertion of Infusion Device into Right Femoral Vein, Percutaneous Approach (ICD-10-PCS; 2017-12-20)
DX: S72.22XA Displaced subtrochanteric fracture of left femur, initial encounter for closed fracture (principal); R64 Cachexia; N18.4 Chronic kidney disease, stage 4 (severe); I50.22 Chronic systolic (congestive) heart failure; I13.0 Hypertensive heart and chronic kidney disease with heart failure and stage 1 through stage 4 chronic kidney disease, or unspecified chronic kidney disease; N39.0 Urinary tract infection, site not specified; I82.621 Acute embolism and thrombosis of deep veins of right upper extremity; D62 Acute posthemorrhagic anemia; N17.9 Acute kidney failure, unspecified; I27.20 Pulmonary hypertension, unspecified; E11.22 Type 2 diabetes mellitus with diabetic chronic kidney disease; J84.10 Pulmonary fibrosis, unspecified; I25.5 Ischemic cardiomyopathy; I08.1 Rheumatic disorders of both mitral and tricuspid valves; D50.9 Iron deficiency anemia, unspecified; B95.2 Enterococcus as the cause of diseases classified elsewhere; I25.10 Atherosclerotic heart disease of native coronary artery without angina pectoris; K21.9 Gastro-esophageal reflux disease without esophagitis; E78.5 Hyperlipidemia, unspecified; K59.00 Constipation, unspecified; G43.909 Migraine, unspecified, not intractable, without status migrainosus; M19.91 Primary osteoarthritis, unspecified site; R32 Unspecified urinary incontinence; E03.9 Hypothyroidism, unspecified; Z68.30 Body mass index [BMI] 30.0-30.9, adult; Z79.02 Long term (current) use of antithrombotics/antiplatelets; Z79.890 Hormone replacement therapy; Z79.82 Long term (current) use of aspirin; Z79.899 Other long term (current) drug therapy; Z85.3 Personal history of malignant neoplasm of breast; Z95.2 Presence of prosthetic heart valve; Z90.710 Acquired absence of both cervix and uterus; Z90.49 Acquired absence of other specified parts of digestive tract; Z96.652 Presence of left artificial knee joint; Z90.12 Acquired absence of left breast and nipple; Z95.5 Presence of coronary angioplasty implant and graft; Z87.440 Personal history of urinary (tract) infections; W01.0XXA Fall on same level from slipping, tripping and stumbling without subsequent striking against object, initial encounter; Y92.009 Unspecified place in unspecified non-institutional (private) residence as the place of occurrence of the external cause; Z82.49 Family history of ischemic heart disease and other diseases of the circulatory system
CPT/HCPCS: 36556; 71045; 71250; 73501; 73502; 76937; 80048; 80053; 81001; 82728; 83036; 83540; 83550; 85025; 85610; 85730; 86300; 86850; 86900; 86901; 86920; 87077; 87086; 87186; 93005; 93306; 96374; 96376; 99285

== ENCOUNTER 2017-12-24 22:08 | Emergency (ER) | payer MEDICARE, BC ==
[2017-12-24] MEDS ORDERED: MORPHINE SULFATE 4 MG/ML SYRINGE IVP STA ×2 (22:22→22:24)
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
[2017-12-24] MEDS ORDERED: HYDROmorphone 1 MG/ML 1 ML SYRINGE IVP STA ×2 (22:56→23:42)
--- NOTE | 2017-12-24 23:55 | XR ---
EXAMINATION TYPE: XR chest 1V DATE OF EXAM: 12/24/2017 COMPARISON: 12/13/2017 HISTORY: Left hip pain TECHNIQUE: Single frontal view of the chest is obtained. FINDINGS: There is coarsening of interstitial markings. Heart size is normal. Thoracic aorta is athe romatous. There is no pleural effusion. There is no heart failure. IMPRESSION: Mild pulmonary fibrosis. No active cardiopulmonary disease. No change.
--- NOTE | 2017-12-24 23:57 | XR ---
EXAMINATION TYPE: XR femur LT DATE OF EXAM: 12/24/2017 COMPARISON: 12/13/2017 HISTORY: Hip pain TECHNIQUE: 5 views FINDINGS: There is intramedullary solo with transverse screw fixing the comminuted intertrochanteric f racture of the left femur. There is left knee prosthesis. Components appear in anatomic position. Fra gments appear in reasonable anatomic position. I see no new fracture. Left hip joint space is normal. IMPRESSION: Recent surgery. No complicating process seen. There is satisfactory reduction of the femu r fracture compared to old exam.
[2017-12-25] MEDS ORDERED: HYDROcodone/APAP 10-325MG 1 EACH TAB PO STA (01:31)
[2017-12-25 02:33] VITALS: BP 149/80; PULSE 86; RESP 15; TEMP 98.1
== END 2017-12-25 03:27 | disposition home or self-care (01) ==
LOC: EC 22:08
DX: G89.18 Other acute postprocedural pain (principal); M25.552 Pain in left hip; L25.8 Unspecified contact dermatitis due to other agents; R01.1 Cardiac murmur, unspecified; E11.9 Type 2 diabetes mellitus without complications; I11.9 Hypertensive heart disease without heart failure; K21.9 Gastro-esophageal reflux disease without esophagitis; Z79.01 Long term (current) use of anticoagulants; Z79.899 Other long term (current) drug therapy; Z85.3 Personal history of malignant neoplasm of breast; Z90.12 Acquired absence of left breast and nipple; Z96.642 Presence of left artificial hip joint
CPT/HCPCS: 73552; 71045; 99284; 96374; 96375; 96376; J2270; J1170